=== PATIENT | male | born 1955 | race Caucasian/White ===

== ENCOUNTER 2020-01-02 12:08 | Emergency (ER) | payer MEDICARE, SELFPAY ==
--- NOTE | ~2020-01-02 | XR_ITS ---
EXAMINATION: XR tibia fibula RT 2V DATE: 01/02/2020 12:42 INDICATION: Right lower leg injury and pain. TECHNIQUE: 2 views of right tibia and fibula on 4 radiographs were obtained. COMPARISON: None. FINDINGS: Bone alignment is normal. There is an oblique fracture of fibular neck. The distal fracture fragment demonstrates one cortical width lateral displacement. There is mild osteoarthritis of media l compartment of the knee. There is mild midfoot osteoarthritis. There is heterotopic ossification di stal to medial and lateral malleoli from old injuries. There are enthesophytes at the posterior plant ar aspects of calcaneal tuberosity. IMPRESSION: 1. Oblique fracture of fibular neck. Reviewed, dictated and finalized at location A.
--- NOTE | 2020-01-02 12:20 | ED.LOWEXIN ---
HPI - Extremity Injury (Lower) General Chief Complaint: Extremity Injury, Lower Stated Complaint: FALL/R LEG INJURY Time Seen by Provider: 01/02/20 12:20 Source: patient and RN notes reviewed History of Present Illness HPI Narrative: Patient is a 64-year-old male who presents the urgent care with his spouse with complaints of a fall on December 20, resulting in a right anterior leg pain. Patient states that it did improve slightly but is still very tender to touch and hurts with ambulation. Patient states that he was going down a set of stairs and the left leg buckled, causing the right leg to go back and likely hit 1 of the steps. Patient denies of any shortness of breath or chest pain. Denies of any history of DVT. States that he does have intermittent lower extremity swelling, which is normal for him. Patient states that the swelling does improve with elevation but only for 1 day. Patient states that his PCP is aware of the intermittent swelling. No other acute complaints. No acute distress noted. Patient read the plan of care. Related Data Allergies Allergy/AdvReac Type Severity Reaction Status Date / Time No Known Allergies Allergy Verified 01/02/20 12:18 Review of Systems Review of Systems: Narrative: CONSTITUTIONAL: Denies fever, chills, or sweats. EYES: Denies visual changes, redness, or discharge. ENT: Denies rhinorrhea, congestion, sore throat, or otalgia. CARDIOVASCULAR: Denies chest pain, palpitations, or edema. RESPIRATORY: Denies cough or dyspnea. GASTROINTESTINAL: Denies abdominal pain, nausea, vomiting, or diarrhea. GENITOURINARY: Denies dysuria or hematuria. SKIN: Denies rash or itching. MUSCULOSKELETAL: Reports of anterior right leg pain and tenderness NEUROLOGIC: Denies headache, numbness, or weakness. All other systems reviewed are negative, except as documented in HPI. [facility] Past Medical History Medical History (Updated 01/02/20 @ 12:58 by REGLA Brunson) Acute pharyngitis Acute sinusitis Cholecystectomy planned Chronic depression Chronic kidney disease (CKD) stage G3a/A1, moderately decreased glomerular filtration rate (GFR) between 45-59 mL/min/1.73 square meter and albuminuria creatinine ratio less than 30 mg/g Diabetes Diabetic neuropathy Glaucoma Hypercholesterolemia Hypertension Insomnia Vitamin B12 deficiency anemia Vitamin D deficiency, unspecified Social History Social History Smoking status: Never smoker Alcohol intake: never Comments At the time of my signature, I reviewed and agree with the nursing past medical, surgical, social, and family history. There is no relevant family history pertinent to the patient complaint. Exam Narrative: Exam Narrative: GENERAL: This is a well-nourished, well-developed patient, in no apparent distress. HEAD: normocephalic, atraumatic. EYES: PERRL. Sclera clear/white. Vision is grossly intact. EARS: External ears normal NOSE: External nose normal with no obvious nasal discharge, nares without redness, no rhinorrhea. THROAT: Mucous membranes moist NECK: Neck supple SKIN: warm, intact with no suspicious lesions or rash, good texture and turgor. NEURO: awake, alert, and oriented to person, place and time. There were no obvious focal neurologic abnormalities. EXTREMITIES: Bilaterally 2+ pitting edema to lower extremities. Mild tenderness to tib-fib region of the right without any obvious deformity, ecchymosis, edema or erythema. Positive strong right pedal pulse with capillary refill less than 2 seconds. Course Vital Signs Vital signs: Vital Signs Temperature 96.0 F L 01/02/20 12:23 Pulse Rate 97 01/02/20 12:23 Respiratory Rate 18 01/02/20 12:23 Blood Pressure 117/66 01/02/20 12:23 Pulse Oximetry 97 01/02/20 12:23 Temperature 96.0 F L 01/02/20 12:23 Pulse Rate 97 01/02/20 12:23 Respiratory Rate 18 01/02/20 12:23 Blood Pressure 117/66 01/02/20 12:2
[2020-01-02 12:23] VITALS: BP 117/66; PULSE 97; RESP 18; TEMP 35.6; O2SAT 97
== END 2020-01-02 13:26 | disposition home or self-care (01) ==
PROVIDERS: Emergency Provider Nurse Practitioner Family; PCP Family Medicine
DX: S82.831A Other fracture of upper and lower end of right fibula, initial encounter for closed fracture (principal); W10.9XXA Fall (on) (from) unspecified stairs and steps, initial encounter; I12.9 Hypertensive chronic kidney disease with stage 1 through stage 4 chronic kidney disease, or unspecified chronic kidney disease; E11.22 Type 2 diabetes mellitus with diabetic chronic kidney disease; N18.3 Chronic kidney disease, stage 3 (moderate); E11.40 Type 2 diabetes mellitus with diabetic neuropathy, unspecified; E11.39 Type 2 diabetes mellitus with other diabetic ophthalmic complication; H42 Glaucoma in diseases classified elsewhere; E78.00 Pure hypercholesterolemia, unspecified; Z79.84 Long term (current) use of oral hypoglycemic drugs
CPT/HCPCS: 73590; 99213; G0463

== ENCOUNTER → 2020-12-24 14:54 | Outpatient (CLI) | payer MEDICARE, SELFPAY ==
--- NOTE | ~2020-12-24 | CT_ITS ---
EXAMINATION: CT abdomen pelvis wo/w con EXAM DATE: 12/24/2020 15:45 INDICATION: Microscopic hematuria. Cholecystectomy, hypertension. TECHNIQUE: Spiral CT of the abdomen and pelvis was performed without contrast. The patient was then injected with small bolus intravenous Omnipaque 350, followed by delay of approximately 10 minutes to allow collecting system to opacify. A post contrast scan abdomen and pelvis was performed during inj ection of remaining contrast. A total of 130 cc intravenous contrast was administered. The dose-carmen th product (DLP) for this examination was 2469.17 mGy-cm. The exposure was tailored according to pat ient size (auto mA exposure control), and iterative reconstruction (ASIR) was used as additional dose reduction technique. There is no prior study for comparison. FINDINGS: There is no hydronephrosis or nephrolithiasis. There is an exophytic cyst off the midpole right kidney measuring 5 cm. The kidneys enhance symmetrically. There are no suspicious renal lesio ns. The calyces and opacified portions of ureters are unremarkable, without filling defects or focal suspicious strictures (most of the left ureter was not opacified at time of imaging, but does appear collapsed without evidence of focal thickening). The bladder is unremarkable. The prostate is unre markable. The liver, spleen, adrenal glands are unremarkable. Several punctate pancreas calcifications, chronic pancreatitis. There are cholecystectomy clips. There is no retroperitoneal or pelvic lymphadenopath y. There is mild scattered arteriosclerotic disease. Possible identification of an unremarkable appendix. No pericecal inflammation. The stomach and smal l bowel are unremarkable. There is expected amount of colonic stool. No free intraperitoneal gas. The heart is normal in size. There are no pericardial or pleural effusions. The lung bases are un remarkable. There is an 8 mm sclerotic focus in the left iliac bone, probably bone island. Bilatera l femoral head serpiginous sclerotic regions, chronic avascular necrosis without subchondral collapse . IMPRESSION: 1. No suspicious genitourinary findings. 2. Punctate calcifications, chronic pancreatitis. 3. Bilateral hip stage II avascular necrosis. Reviewed, dictated and finalized at location A.
--- NOTE | ~2020-12-24 | XR_ITS ---
EXAMINATION: XR abdomen/kub 1V EXAM DATE: 12/24/2020 15:45 INDICATION: Microscopic hematuria. TECHNIQUE: Frontal projection of the upper abdomen, frontal projection lower abdomen/pelvis for inter pretation. There is no prior study for comparison. FINDINGS: There is moderate amount of colonic stool and gas. No small bowel dilation, nonobstructiv e bowel gas pattern. There are no suspicious calcifications identified. There is no organomegaly suspected. There is mild lumbar levoscoliosis and moderate spondylosis. Bilateral hip avascular necr osis without subchondral collapse. Left iliac subcentimeter sclerotic focus probably bone island. T here is no free intraperitoneal air. The lung bases are clear. IMPRESSION: Chronic osseous findings. Reviewed, dictated and finalized at location A. IMPRESSION: Chronic osseous findings.
[2020-12-24 15:18] LABS: Estimated Glomerular Filt Rate 36
== END ==
PROVIDERS: PCP Family Medicine; Visit Provider Nurse Practitioner Adult Health
DX: R31.29 Other microscopic hematuria (principal); K86.1 Other chronic pancreatitis; M87.850 Other osteonecrosis, pelvis
CPT/HCPCS: 74018; 74178; Q9967

== ENCOUNTER → 2021-06-03 10:51 | Outpatient (CLI) | payer MEDICARE, SELFPAY ==
--- NOTE | ~2021-06-03 | XR_ITS ---
EXAMINATION: XR elbow RT min 3V DATE: 06/03/2021 11:01 INDICATION: Right elbow pain TECHNIQUE: Anteroposterior, two oblique and lateral views of the right elbow were obtained. COMPARISON: None. FINDINGS: Alignment is normal. No fracture or joint effusion. There is mild osteoarthritis. There is also mild posterior soft tissue swelling. IMPRESSION: 1. Mild posterior soft tissue swelling without acute osseous abnormality. Reviewed, dictated and finalized at location A. TH AND SAFETY REPRESENTATIVE
== END ==
PROVIDERS: PCP Family Medicine; Visit Provider Nurse Practitioner Family
DX: M25.521 Pain in right elbow (principal); R22.31 Localized swelling, mass and lump, right upper limb
CPT/HCPCS: 73080

== ENCOUNTER 2021-09-10 15:42 | Emergency (ER) | payer MEDICARE, SELFPAY ==
[2021-09-10 15:52] VITALS: BP 165/76; PULSE 65; RESP 16; TEMP 37.1; O2SAT 99
--- NOTE | 2021-09-10 16:36 | ED.URI ---
HPI - URI/Sore Throat General Chief Complaint: Upper Respiratory Infection Stated Complaint: sore throat Time Seen by Provider: 09/10/21 16:24 Source: patient and RN notes reviewed Mode of arrival: ambulatory Limitations: no limitations History of Present Illness HPI Narrative: Patient presents today with a 2-day history of sore throat. He denies any additional symptoms. Denies history of GERD. Currently rates his pain 1/10, which increases to 5/10 with swallowing. He has been using Chloraseptic spray without relief. MD elicited complaint: sore throat Related Data Allergies Allergy/AdvReac Type Severity Reaction Status Date / Time No Known Allergies Allergy Verified 09/10/21 15:49 Review of Systems Review of Systems: CONSTITUTIONAL: Denies body aches, fever, chills, or sweats. EYES: Denies visual changes, redness, or discharge. ENT: Denies rhinorrhea, congestion, or otalgia.+ Sore throat CARDIOVASCULAR: Denies chest pain, palpitations, or edema. RESPIRATORY: Denies cough or dyspnea. GASTROINTESTINAL: Denies abdominal pain, nausea, vomiting, or diarrhea. GENITOURINARY: Denies dysuria or hematuria. SKIN: Denies rash, itching, or wounds. MUSCULOSKELETAL: Denies back pain, joint pain, or myalgia. NEUROLOGIC: Denies headache, numbness, tingling, or weakness. PSYCH: Denies depression or anxiety. [facility] Past Medical History Medical History Actinic keratosis Acute pharyngitis Acute sinusitis Cholecystectomy planned Chronic depression Chronic kidney disease (CKD) stage G3a/A1, moderately decreased glomerular filtration rate (GFR) between 45-59 mL/min/1.73 square meter and albuminuria creatinine ratio less than 30 mg/g Diabetes Diabetic neuropathy Hypercholesterolemia Hypertension Insomnia Microscopic hematuria Open-angle glaucoma of both eyes followed by minute clerk for basic traffic with last appointment 02/09/2021 Right elbow pain Screening for diabetic retinopathy dilated eye exam on 02/09/2021 reveals no retinopathy . Recheck in 1 year Vitamin B12 deficiency anemia Vitamin D deficiency, unspecified Worsening renal function Family History Family History Father Family history of lung cancer, Onset Age: 80 Mother Family history of congestive heart failure, Onset Age: 90 Social History Social History Smoking status: Never smoker Alcohol intake: never Substance use: never Substance use type: does not use Comments At time of signature, I have reviewed and agree with nursing past medical, surgical, social and family history unless otherwise noted. Please see nursing chart for further information. There is no relevant family history pertinent to the presenting complaint Exam Narrative: GENERAL: Well-appearing, well-nourished, and in no acute distress. HEAD: Normocephalic, atraumatic. EYES: EOMI. No redness or drainage. Conjunctivae normal. ENT: Mucous membranes pink and moist. Nares clear. No rhinorrhea. TMs normal bilaterally. Throat erythematous and mildly edematous without exudate. Uvula midline. NECK: Normal AROM. Supple. Bilateral anterior cervical chain lymphadenopathy. CHEST: No respiratory distress. Clear to auscultation. HEART: Regular rate and rhythm. No murmur appreciated. Normal peripheral pulses. EXTREMITIES: Normal range of motion. No edema. SKIN: Warm, dry, no rash. Capillary refill normal. Normal skin turgor. NEURO: No focal deficits. Alert and oriented x3. Gait steady. PSYCH: Normal affect. No signs of depression or anxiety. Course Course Level of Care: Express Care Visit Vital Signs Vital signs: Vital Signs Temperature 98.7 F 09/10/21 15:52 Pulse Rate 65 09/10/21 15:52 Respiratory Rate 16 09/10/21 15:52 Blood Pressure 165/76 H 09/10/21 15:52 Pulse Oximetry 99
== END 2021-09-10 16:58 | disposition home or self-care (01) ==
PROVIDERS: Emergency Provider Nurse Practitioner; PCP Family Medicine
DX: J02.0 Streptococcal pharyngitis (principal); E78.00 Pure hypercholesterolemia, unspecified; I12.9 Hypertensive chronic kidney disease with stage 1 through stage 4 chronic kidney disease, or unspecified chronic kidney disease; E11.22 Type 2 diabetes mellitus with diabetic chronic kidney disease; N18.30 Chronic kidney disease, stage 3 unspecified; N18.31 Chronic kidney disease, stage 3a; E11.42 Type 2 diabetes mellitus with diabetic polyneuropathy; Z79.84 Long term (current) use of oral hypoglycemic drugs; F32.A Depression, unspecified
CPT/HCPCS: 87880; 99213; G0463

== ENCOUNTER 2021-11-24 07:20 | Outpatient (CLI) | payer MEDICARE, SELFPAY ==
--- NOTE | ~2021-11-24 | US_ITS ---
EXAMINATION: US art doppler w niki GREENE DATE: 11/24/2021 09:10 INDICATION: Peripheral vascular disease with claudication and risk factors of diabetes, hypercholeste rolemia and hypertension. TECHNIQUE: Segmental pressures and plethysmographic and Doppler waveforms of the brachial and lower e xtremity arteries were obtained. COMPARISON: None. FINDINGS: Right brachial artery pressures of 175 mm Hg. Patient refused left brachial artery pressure measureme nt due to left shoulder pain. The right and left high-thigh pressure indices as well as ankle brachia l indices were unable to be obtained due to inability to occlude the vessels throughout either lower limb also precluding assessment for segmental pressure gradients. The right great toe-brachial index (TBI) is 1.12 (normal >= 0.6-0.8). Arterial waveforms are triphasi c at the left common femoral and superficial femoral arteries and biphasic in the more distal arterie s with brisk systolic upstrokes throughout. The left TBI is 1.10. Arterial waveforms are triphasic at the left common femoral and popliteal arter ies and biphasic in the remaining arteries in the left lower limb with brisk systolic upstrokes throu ghout. IMPRESSION: 1. Normal TBIs bilaterally. No significant arterial occlusive disease. Reviewed, dictated and finalized at location B.
== END 2021-11-24 07:21 | disposition home or self-care (01) ==
PROVIDERS: PCP Family Medicine; Visit Provider Nurse Practitioner Family
DX: R23.0 Cyanosis (principal); Z78.9 Other specified health status; I87.2 Venous insufficiency (chronic) (peripheral); M79.89 Other specified soft tissue disorders
CPT/HCPCS: 93923

== ENCOUNTER → 2022-01-31 14:39 | Outpatient (CLI) | payer MEDICARE, SELFPAY ==
--- NOTE | ~2022-01-31 | XR_ITS ---
XR lumbar spine min 4V 01/31/2022 15:07 Indication: Low back pain Procedure: 4 views lumbar spine Comparison: No prior studies for comparison. Findings: There is levoscoliosis. There is disc narrowing at all lumbar levels. There is moderate mul tilevel facet hypertrophy. No acute fracture, subluxation or dislocation. No evidence for spondylolis thesis. Mild wedge deformity of T11 which appears chronic. Impression: 1: Moderate-severe lumbar spondylosis. Reviewed, dictated and finalized at location A. Impression: 1: Moderate-severe lumbar spondylosis.
== END ==
PROVIDERS: PCP Family Medicine; Visit Provider Family Medicine
DX: G89.29 Other chronic pain (principal); M54.41 Lumbago with sciatica, right side; M54.42 Lumbago with sciatica, left side; M47.816 Spondylosis without myelopathy or radiculopathy, lumbar region
CPT/HCPCS: 72110

== ENCOUNTER → 2022-02-25 12:22 | Outpatient (CLI) | payer MEDICARE, SELFPAY ==
--- NOTE | ~2022-02-25 | US_ITS ---
US renal BI DATE: 02/25/2022 12:46 INDICATION: Chronic kidney disease TECHNIQUE: Real-time imaging of kidneys and urinary bladder COMPARISON: 12/24/2020 CT abdomen pelvis without and with IV contrast material FINDINGS: Right kidney measures 11.2 cm length, left kidney 10.7 cm length. There is an exophytic approximately 4.5 x 4.9 cm right lateral lower pole renal cyst. No renal mass lesion or hydronephrosis either kidney is noted otherwise. The urinary bladder is unrem arkable IMPRESSION: No evidence of obstructive uropathy 4.5 x 4.9 cm exophytic right renal cyst Reviewed, dictated and finalized at Location A. Reviewed, dictated and finalized at location B.
== END ==
PROVIDERS: PCP Family Medicine; Visit Provider Internal Medicine Nephrology
DX: N18.32 Chronic kidney disease, stage 3b (principal); I12.9 Hypertensive chronic kidney disease with stage 1 through stage 4 chronic kidney disease, or unspecified chronic kidney disease; R31.29 Other microscopic hematuria; N28.1 Cyst of kidney, acquired
CPT/HCPCS: 76775

== ENCOUNTER 2022-03-17 00:30 | Day surgery (SDC) | payer MEDICARE, SELFPAY ==
[2022-03-01 13:56] VITALS: BMI 38.2
--- NOTE | 2022-03-16 14:52 | PM.HPGS ---
History of Present Illness History of Present Illness Consent: Risks, benefits, and alternatives have been discussed and questions answered. Patient agrees to proceed with procedure. Chief complaint: anemia Narrative: Abhinav Moore is a 66 year old male Referred for EGD and colonoscopy. he has been found to be anemic. He denies seeing blood in his stools. He denies nausea vomiting weight loss or dysphagia. He rarely gets heartburn. There has been no significant change in bowel habits [facility] Review of Systems Review of Systems: All systems reviewed & are unremarkable except as noted in HPI and below PMFSH Past Medical History Medical History Abscess of skin or subcutaneous tissue (~01/29/22) Left buttocks midline Actinic keratosis Acute pharyngitis Acute sinusitis Anemia (11/03/21) hemoglobin 11.4 on 11/03/2021. hemoglobin 12.0 with iron 43, 60% saturation and ferritin 32 but 12/13/2021. Cholecystectomy planned Chronic depression Chronic kidney disease (CKD) stage G3a/A1, moderately decreased glomerular filtration rate (GFR) between 45-59 mL/min/1.73 square meter and albuminuria creatinine ratio less than 30 mg/g Chronic kidney disease (CKD) stage G3b/A1, moderately decreased glomerular filtration rate (GFR) between 30-44 mL/min/1.73 square meter and albuminuria creatinine ratio less than 30 mg/g BUN 20 day with creatinine 1.93 with GFR 35, decreased from 39 on 12/13/2021. Cyanosis bilateral feet . Arterial Doppler study of the lower extremities 11/24/2021 was normal. Diabetes Diabetic neuropathy Edema of both lower legs due to peripheral venous insufficiency Hypercholesterolemia Hypertension Insomnia Iron deficiency anemia, unspecified (12/13/21) are low at 43 with 16% saturation and ferritin 32 with hemoglobin 12.0 on 12/13/2021. Microscopic hematuria Morbid obesity with BMI of 40.0-44.9, adult Nonpalpable pulse bilateral feet . Arterial Doppler 11/24/2021 of the lower extremities was normal. Open-angle glaucoma of both eyes followed by foundation relations manager with last appointment 02/09/2021 Peripheral vascular disease of lower extremity Right elbow pain Screening for diabetic retinopathy dilated eye exam on 02/09/2021 reveals no retinopathy . Recheck in 1 year Vitamin B12 deficiency anemia Vitamin D deficiency, unspecified Worsening renal function Family History Family History Father Family history of lung cancer, Onset Age: 80 Mother Family history of congestive heart failure, Onset Age: 90 Social History Social History Smoking status: Never smoker Alcohol intake: never Substance use: never Substance use type: does not use Living arrangements: with family Spiritual care concerns: No Meds Home Medications and Allergies Home Medications Medication Instructions Recorded Confirmed Type latanoprost 0.005 % eye drops 1 drp ophthalmic (eye) DAILY #7.5 11/21/19 03/01/22 Rx mL timolol 0.25 % eye drops 1 drp ophthalmic (eye) Q12H #15 mL 11/21/19 03/01/22 Rx amitriptyline 10 mg tablet 20 mg PO . q.h.s. #180 tabs 11/11/21 03/01/22 Rx duloxetine 60 mg capsule,delayed 60 mg PO BID #180 caps 11/11/21 03/01/22 Rx release lisinopril 40 mg tablet 40 mg PO DAILY #90 tabs 11/11/21 03/01/22 Rx metformin 1,000 mg tablet 1,000 mg PO BID #180 tabs 11/11/21 03/01/22 Rx atorvastatin 40 mg tablet 20 mg PO QHS 03/01/22 03/01/22 History dapagliflozin 10 mg tablet 5 mg PO DAILY 03/01/22 03/01/22 History ([facility]) Allergies Allergy/AdvReac Type Severity Reaction Status Date / Time No Known Allergies Allergy Verified 03/01/22 13:50 Exam Const: General: alert Orientation/consciousness: patient oriented x3 Resp: Auscultation: clear to auscultation bilaterally Cardio: Rhythm: regular rhythm GI: GI Palp: Yes
[2022-03-17 11:15] VITALS: BP 135/78; PULSE 79; RESP 22; TEMP 36.2; O2SAT 100
[2022-03-17 11:22] LABS: Glucose Point of Care 149 mg/dl (65-105)
[2022-03-17] MEDS: LACTATED RINGERS 1,000 ML 150 ML IV CONT (11:26)
--- NOTE | 2022-03-17 11:32 | WPDANESEPPF ---
Anes - Initial Pre Proc Eval Procedure: Operation Date: 03/17/22 12:30 Proposed Procedures p Esophagogastroduodenoscopy & Colonoscopy - Blu Montague MD Date/Time: 03/17/22 11:32 Surgeon: Blu Montague MD Pre Op Diagnosis: anemia Patient Data Age: 66 Gender: M Height: 1.85 m Weight: 132.6 kg Last Vital Signs Temp 97.2 F L 03/17/22 11:15 Pulse 79 03/17/22 11:15 Resp 22 H 03/17/22 11:15 BP 135/78 03/17/22 11:15 Pulse Ox 100 03/17/22 11:15 O2 Del Method Room Air 03/17/22 11:15 Allergies Allergy/AdvReac Type Severity Reaction Status Date / Time No Known Allergies Allergy Verified 03/01/22 13:50 Home Medications Medication Instructions Recorded Confirmed Type latanoprost 0.005 % eye drops 1 drp ophthalmic (eye) DAILY #7.5 11/21/19 03/01/22 Rx mL timolol 0.25 % eye drops 1 drp ophthalmic (eye) Q12H #15 mL 11/21/19 03/01/22 Rx amitriptyline 10 mg tablet 20 mg PO . q.h.s. #180 tabs 11/11/21 03/01/22 Rx duloxetine 60 mg capsule,delayed 60 mg PO BID #180 caps 11/11/21 03/01/22 Rx release lisinopril 40 mg tablet 40 mg PO DAILY #90 tabs 11/11/21 03/01/22 Rx metformin 1,000 mg tablet 1,000 mg PO BID #180 tabs 11/11/21 03/01/22 Rx atorvastatin 40 mg tablet 20 mg PO QHS 03/01/22 03/01/22 History dapagliflozin 10 mg tablet 5 mg PO DAILY 03/01/22 03/01/22 History ([facility]) Laboratory Tests 03/17/22 11:20 POC Capillary Glucose 149 mg/dl H mg/dl (65-105) Patient hx anesthesia problems: none Family hx anesthesia problems: none Results Review: All pre-operative results and documents have been reviewed as part of the pre-operative evaluation. [facility] Past Medical History Medical History (Updated 01/31/22 @ 19:32 by Andre Ontiveros MD) Abscess of skin or subcutaneous tissue (~01/29/22) Left buttocks midline Actinic keratosis Acute pharyngitis Acute sinusitis Anemia (11/03/21) hemoglobin 11.4 on 11/03/2021. hemoglobin 12.0 with iron 43, 60% saturation and ferritin 32 but 12/13/2021. Cholecystectomy planned Chronic depression Chronic kidney disease (CKD) stage G3a/A1, moderately decreased glomerular filtration rate (GFR) between 45-59 mL/min/1.73 square meter and albuminuria creatinine ratio less than 30 mg/g Chronic kidney disease (CKD) stage G3b/A1, moderately decreased glomerular filtration rate (GFR) between 30-44 mL/min/1.73 square meter and albuminuria creatinine ratio less than 30 mg/g BUN 20 day with creatinine 1.93 with GFR 35, decreased from 39 on 12/13/2021. Cyanosis bilateral feet . Arterial Doppler study of the lower extremities 11/24/2021 was normal. Diabetes Diabetic neuropathy Edema of both lower legs due to peripheral venous insufficiency Hypercholesterolemia Hypertension Insomnia Iron deficiency anemia, unspecified (12/13/21) are low at 43 with 16% saturation and ferritin 32 with hemoglobin 12.0 on 12/13/2021. Microscopic hematuria Morbid obesity with BMI of 40.0-44.9, adult Nonpalpable pulse bilateral feet . Arterial Doppler 11/24/2021 of the lower extremities was normal. Open-angle glaucoma of both eyes followed by brusher operator with last appointment 02/09/2021 Peripheral vascular disease of lower extremity Right elbow pain Screening for diabetic retinopathy dilated eye exam on 02/09/2021 reveals no retinopathy . Recheck in 1 year Vitamin B12 deficiency anemia Vitamin D deficiency, unspecified Worsening renal function Family History Family History Father Family history of lung cancer, Onset Age: 80 Mother Family history of congestive heart failure, Onset Age: 90 Social History Social History Smoking status: Never smoker Alcohol intake: never Substance use: never Substance use type: does not use Living arrangements: with family Spiritual care concerns: No Anes - Eval Dorothea
[2022-03-17] MEDS: SIMETHICONE ORAL SUSPENSION 20 MG/0.3 ML 30 ML BOTTLE 0.6 ML IRRIGATION (12:49)
--- NOTE | 2022-03-17 12:56 | SUR.OPER ---
EGD START: 1233; END: 1237. COLONOSCOPY START: 1246; END: 1255.
[2022-03-17 13:01] VITALS: BP 98/57; PULSE 68; RESP 22; O2SAT 97
[2022-03-17 13:11] VITALS: BP 94/73; PULSE 67; RESP 20; O2SAT 98
[2022-03-17 13:21] VITALS: BP 146/81; PULSE 62; RESP 21; O2SAT 98
== END 2022-03-17 13:46 | disposition home or self-care (01) ==
PROVIDERS: PCP Family Medicine; Visit Provider Internal Medicine Gastroenterology
PROC: 0DJ08ZZ Inspection of Upper Intestinal Tract, Via Natural or Artificial Opening Endoscopic (ICD-10-PCS; CPT 43235; principal; 2022-03-17 12:30)
DX: D50.9 Iron deficiency anemia, unspecified (principal); K26.9 Duodenal ulcer, unspecified as acute or chronic, without hemorrhage or perforation; K57.30 Diverticulosis of large intestine without perforation or abscess without bleeding; K21.9 Gastro-esophageal reflux disease without esophagitis; R12 Heartburn; K29.70 Gastritis, unspecified, without bleeding; Z79.84 Long term (current) use of oral hypoglycemic drugs; L57.0 Actinic keratosis; F32.A Depression, unspecified; I12.9 Hypertensive chronic kidney disease with stage 1 through stage 4 chronic kidney disease, or unspecified chronic kidney disease; N18.30 Chronic kidney disease, stage 3 unspecified; E11.22 Type 2 diabetes mellitus with diabetic chronic kidney disease; E11.40 Type 2 diabetes mellitus with diabetic neuropathy, unspecified; R60.0 Localized edema; E78.00 Pure hypercholesterolemia, unspecified; E55.9 Vitamin D deficiency, unspecified; E53.8 Deficiency of other specified B group vitamins; G62.9 Polyneuropathy, unspecified; H40.9 Unspecified glaucoma; E66.9 Obesity, unspecified; Z68.38 Body mass index [BMI] 38.0-38.9, adult
CPT/HCPCS: 45378; 43239; 82948; 87081; 88305; 88342; J2704; J7120

== ENCOUNTER 2022-05-05 00:24 | Day surgery (SDC) | payer MEDICARE, SELFPAY ==
[2022-04-26 14:17] VITALS: BMI 41.4
--- NOTE | 2022-05-04 14:39 | PM.HPGS ---
History of Present Illness History of Present Illness Consent: Risks, benefits, and alternatives have been discussed and questions answered. Patient agrees to proceed with procedure. Chief complaint: gastritis & duodenal ulcers Narrative: Abhinav Moore is a 67 year old male Who was found to have multiple duodenal ulcers when he was being investigated for anemia 2 months ago. He has been taking pantoprazole 40 mg per day. Review of Systems Review of Systems: All systems reviewed & are unremarkable except as noted in HPI and below PMFSH Past Medical History Medical History Abscess of skin or subcutaneous tissue (~01/29/22) Left buttocks midline Actinic keratosis Acute pharyngitis Acute sinusitis Anemia (11/03/21) hemoglobin 11.4 on 11/03/2021. hemoglobin 12.0 with iron 43, 60% saturation and ferritin 32 but 12/13/2021. BMI 38.0-38.9,adult Body mass index (BMI) 40.0-44.9, adult (03/04/19) Cholecystectomy planned Chronic depression Chronic kidney disease (CKD) stage G3a/A1, moderately decreased glomerular filtration rate (GFR) between 45-59 mL/min/1.73 square meter and albuminuria creatinine ratio less than 30 mg/g Chronic kidney disease (CKD) stage G3b/A1, moderately decreased glomerular filtration rate (GFR) between 30-44 mL/min/1.73 square meter and albuminuria creatinine ratio less than 30 mg/g BUN 20 day with creatinine 1.93 with GFR 35, decreased from 39 on 12/13/2021. BUN 33, creatinine 1.88 with GFR 38 on 04/05/2022. COVID-19 (~12/2021) fully vaccinated and moderate symptoms Cyanosis bilateral feet . Arterial Doppler study of the lower extremities 11/24/2021 was normal. Diabetes Diabetic neuropathy Duodenal ulcer disease (03/17/22) EGD with duodenal ulcers 03/17/2022. Edema of both lower legs due to peripheral venous insufficiency Encounter for hepatitis C screening test for low risk patient Gastritis (03/17/22) EGD on 03/17/2022 with gastritis and ulcerations GERD with esophagitis (03/17/22) esophagitis on EGD 03/17/2022 Hypercholesterolemia Hypertension Insomnia Iron deficiency anemia, unspecified (12/13/21) are low at 43 with 16% saturation and ferritin 32 with hemoglobin 12.0 on 12/13/2021. iron 59 with 22% saturation and ferritin 34 on 04/05/2022. Microscopic hematuria Morbid obesity with BMI of 40.0-44.9, adult Nonpalpable pulse bilateral feet . Arterial Doppler 11/24/2021 of the lower extremities was normal. Obesity (BMI 30-39.9) Open-angle glaucoma of both eyes followed by manufacturing engineering intern with last appointment 02/09/2021 Peripheral vascular disease of lower extremity Right elbow pain Screening for diabetic retinopathy dilated eye exam on 02/09/2021 reveals no retinopathy . Recheck in 1 year Vitamin B12 deficiency anemia Vitamin D deficiency, unspecified Worsening renal function Family History Family History Father Family history of lung cancer, Onset Age: 80 Mother Family history of congestive heart failure, Onset Age: 90 Social History Social History Smoking status: Never smoker Alcohol intake: never Substance use: never Substance use type: does not use Current Housing: Decline to Answer Concerned About Future Housing: Decline to Answer Difficulty Paying Gas/Electric Bills: Decline to Answer Difficulty Paying for Meds: Decline to Answer Currently Unemployed: Decline to Answer Education: Decline to Answer Difficulty w/ Childcare or Family Care: Decline to Answer Living arrangements: with family Spiritual care concerns: No Meds Home Medications and Allergies Home Medications Medication Instructions Recorded Confirmed Type timolol 0.25 % eye drops 1 drp ophthalmic (eye) Q12H #15 mL 11/21/19 04/26/22 Rx duloxetine 60 mg capsule,delayed 60 mg PO BID #180 caps 11/11/21 04/26/22 R
[2022-05-05 09:29] VITALS: BP 166/84; PULSE 70; RESP 22; TEMP 36.6; O2SAT 99
[2022-05-05] MEDS: LACTATED RINGERS 1,000 ML 150 ML IV CONT (09:37)
[2022-05-05 09:44] LABS: Glucose Point of Care 129 mg/dl (65-105)
--- NOTE | 2022-05-05 10:30 | WPDANESEPPF ---
Anes - Initial Pre Proc Eval Procedure: Operation Date: 05/05/22 10:45 Proposed Procedures p Esophagogastroduodenoscopy EGD - Blu Montague MD Date/Time: 05/05/22 10:30 Surgeon: Blu Montague MD Pre Op Diagnosis: gastritis & duodenal ulcers Patient Data Age: 67 Gender: M Height: 1.83 m Weight: 138.8 kg Last Vital Signs Temp 97.8 F 05/05/22 09:29 Pulse 70 05/05/22 09:29 Resp 22 H 05/05/22 09:29 BP 166/84 H 05/05/22 09:29 Pulse Ox 99 05/05/22 09:29 O2 Del Method Room Air 05/05/22 09:29 Allergies Allergy/AdvReac Type Severity Reaction Status Date / Time No Known Allergies Allergy Verified 05/05/22 09:26 Home Medications Medication Instructions Recorded Confirmed Type timolol 0.25 % eye drops 1 drp ophthalmic (eye) Q12H #15 mL 11/21/19 04/26/22 Rx duloxetine 60 mg capsule,delayed 60 mg PO BID #180 caps 11/11/21 04/26/22 Rx release lisinopril 40 mg tablet 40 mg PO DAILY #90 tabs 11/11/21 04/26/22 Rx metformin 1,000 mg tablet 1,000 mg PO BID #180 tabs 11/11/21 04/26/22 Rx amitriptyline 10 mg tablet 20 mg PO HS 04/26/22 04/26/22 History atorvastatin 20 mg tablet 20 mg PO HS 04/26/22 04/26/22 History cholecalciferol (vitamin D3) 50 50 mcg PO DAILY 04/26/22 04/26/22 History mcg (2,000 unit) tablet dapagliflozin 10 mg tablet 5 mg PO 3XW 04/26/22 04/26/22 History (Farxiga) ferrous sulfate 324 mg (65 mg 324 mg PO DAILY 04/26/22 04/26/22 History iron) tablet,delayed release latanoprost 0.005 % eye drops 1 drp ophthalmic (eye) HS 04/26/22 04/26/22 History mecobalamin (vitamin B12) 1,000 2,000 mcg PO DAILY 04/26/22 04/26/22 History mcg chewable tablet pantoprazole 40 mg tablet,delayed 40 mg PO QAM #30 tabs 05/03/22 05/05/22 Rx release Laboratory Tests 05/05/22 09:41 POC Capillary Glucose 129 mg/dl H mg/dl (65-105) Patient hx anesthesia problems: none Family hx anesthesia problems: none Results Review: All pre-operative results and documents have been reviewed as part of the pre-operative evaluation. [facility] Past Medical History Medical History (Updated 04/13/22 @ 10:54 by Andre Ontiveros MD) Abscess of skin or subcutaneous tissue (~01/29/22) Left buttocks midline Actinic keratosis Acute pharyngitis Acute sinusitis Anemia (11/03/21) hemoglobin 11.4 on 11/03/2021. hemoglobin 12.0 with iron 43, 60% saturation and ferritin 32 but 12/13/2021. BMI 38.0-38.9,adult Body mass index (BMI) 40.0-44.9, adult (03/04/19) Cholecystectomy planned Chronic depression Chronic kidney disease (CKD) stage G3a/A1, moderately decreased glomerular filtration rate (GFR) between 45-59 mL/min/1.73 square meter and albuminuria creatinine ratio less than 30 mg/g Chronic kidney disease (CKD) stage G3b/A1, moderately decreased glomerular filtration rate (GFR) between 30-44 mL/min/1.73 square meter and albuminuria creatinine ratio less than 30 mg/g BUN 20 day with creatinine 1.93 with GFR 35, decreased from 39 on 12/13/2021. BUN 33, creatinine 1.88 with GFR 38 on 04/05/2022. COVID-19 (~12/2021) fully vaccinated and moderate symptoms Cyanosis bilateral feet . Arterial Doppler study of the lower extremities 11/24/2021 was normal. Diabetes Diabetic neuropathy Duodenal ulcer disease (03/17/22) EGD with duodenal ulcers 03/17/2022. Edema of both lower legs due to peripheral venous insufficiency Encounter for hepatitis C screening test for low risk patient Gastritis (03/17/22) EGD on 03/17/2022 with gastritis and ulcerations GERD with esophagitis (03/17/22) esophagitis on EGD 03/17/2022 Hypercholesterolemia Hypertension Insomnia Iron deficiency anemia, unspecified (12/13/21) are low at 43 with 16% saturation and ferritin 32 with hemoglobin 12.0 on 12/13/2021. iron 59 with 22% saturation and ferritin 34 on 04/05/2022. Microscopic hematuria Morbid obesity with BMI of 40.0-44.9, adult Nonpalpable pulse bilateral feet . Arterial Doppler 11/24/2021 of the lower extremiti
[2022-05-05] MEDS: BENZOCAINE (*SP) 60 ML SPRAY CAN (HURRICAINE) 1 SPRAY MUCOUS MEM (10:41)
[2022-05-05 10:53] VITALS: BP 138/69; PULSE 71; RESP 19; O2SAT 96
[2022-05-05 11:03] VITALS: BP 140/74; PULSE 64; RESP 21; O2SAT 98
[2022-05-05 11:13] VITALS: BP 153/97; PULSE 67; RESP 18; O2SAT 100
== END 2022-05-05 11:15 | disposition home or self-care (01) ==
PROVIDERS: PCP Family Medicine; Visit Provider Internal Medicine Gastroenterology
PROC: 0DJ08ZZ Inspection of Upper Intestinal Tract, Via Natural or Artificial Opening Endoscopic (ICD-10-PCS; CPT 43235; principal; 2022-05-05 10:45)
DX: Z09 Encounter for follow-up examination after completed treatment for conditions other than malignant neoplasm (principal); K21.9 Gastro-esophageal reflux disease without esophagitis; K31.84 Gastroparesis; Z87.11 Personal history of peptic ulcer disease; E11.40 Type 2 diabetes mellitus with diabetic neuropathy, unspecified; F32.A Depression, unspecified; I12.9 Hypertensive chronic kidney disease with stage 1 through stage 4 chronic kidney disease, or unspecified chronic kidney disease; N18.32 Chronic kidney disease, stage 3b; E78.00 Pure hypercholesterolemia, unspecified; D50.9 Iron deficiency anemia, unspecified; H40.10X0 Unspecified open-angle glaucoma, stage unspecified; E11.51 Type 2 diabetes mellitus with diabetic peripheral angiopathy without gangrene; E55.9 Vitamin D deficiency, unspecified; D51.3 Other dietary vitamin B12 deficiency anemia; E66.01 Morbid (severe) obesity due to excess calories; Z68.41 Body mass index [BMI] 40.0-44.9, adult; Z79.84 Long term (current) use of oral hypoglycemic drugs
CPT/HCPCS: 43235; 82948; J2704; J7120

== ENCOUNTER 2022-07-08 07:17 | Outpatient (CLI) | payer MEDICARE, SELFPAY ==
--- NOTE | ~2022-07-08 | MR_ITS ---
EXAMINATION: MR lumbar spine wo con DATE: 07/08/2022 07:55 INDICATION: Chronic low back pain. TECHNIQUE: Magnetic resonance imaging (MRI) of the lumbar spine was performed without intravenous con trast. Sequences included sagittal T2-weighted FSE, sagittal T2-weighted FS FSE, sagittal T1-weighted FSE, and axial T2-weighted FSE. COMPARISON: Lumbar spine radiographs 01/31/2022 FINDINGS: There is 13 degrees levoscoliosis of lumbar spine. There is a compression fracture of T12 w ith 1/5 loss of height and edema-like marrow signal intensity. There is mild chronic anterior wedging of T11 vertebral body. There is 3 mm retrolisthesis of L1 on L2 and L2 on L3. There is mildly decrea sed disc height at T11-T12 and moderately decreased disc height at L1-L2, L2-L3, and L3-L4. The conus medullaris is at T12. The following disc levels are specifically discussed: T11-T12: There is a central extrusion. There is mild bilateral facet joint osteoarthritis. There is m ild left neural foraminal stenosis. There is mild central canal stenosis. T12-L1: The disc is bulging. There is mild bilateral facet joint osteoarthritis. There is mild bilate ral neural foraminal stenosis. There is mild central canal stenosis. L1-L2: The disc is bulging and has an annular fissure. There is severe bilateral facet joint osteoart hritis. There is moderate bilateral neural foraminal stenosis. There is moderate central canal stenos is. L2-L3: The disc is bulging and has an annular fissure. There is severe bilateral facet joint osteoart hritis. There is moderate right and mild left neural foraminal stenosis. There is mild central canal stenosis with posterior decompression. L3-L4: The disc is bulging and has an annular fissure. There is severe right and moderate left facet joint osteoarthritis. There is moderate bilateral neural foraminal stenosis. There is mild central ca nal stenosis with posterior decompression. L4-L5: The disc is bulging and has an annular fissure. There is severe bilateral facet joint osteoart hritis. There is moderate right and severe left neural foraminal stenosis. There is mild central placido l stenosis with posterior decompression. L5-S1: The disc does not extend beyond the endplate margin. There is moderate right and mild left fac et joint osteoarthritis. There is moderate right and mild left neural foraminal stenosis. There is no central canal stenosis. IMPRESSION: 1. T12 compression fracture, likely acute or subacute. 2. Moderate lumbar spondylosis. 3. Lumbar levoscoliosis. Reviewed, dictated and finalized at location A. [employer]
== END 2022-07-08 07:18 | disposition home or self-care (01) ==
PROVIDERS: PCP Family Medicine; Visit Provider Neurological Surgery
DX: G89.29 Other chronic pain (principal); M54.41 Lumbago with sciatica, right side; M54.42 Lumbago with sciatica, left side; M47.896 Other spondylosis, lumbar region; S22.080A Wedge compression fracture of T11-T12 vertebra, initial encounter for closed fracture; X58.XXXA Exposure to other specified factors, initial encounter
CPT/HCPCS: 72148

== ENCOUNTER 2022-07-28 11:37 | Outpatient (CLI) | payer MEDICARE, SELFPAY ==
[2022-07-28 13:52] LABS: Hemoglobin A1C 6.4 % (<5.7)
== END 2022-07-28 11:38 | disposition home or self-care (01) ==
PROVIDERS: PCP Family Medicine; Visit Provider Neurological Surgery
DX: Z68.38 Body mass index [BMI] 38.0-38.9, adult (principal)
CPT/HCPCS: 36415; 83036

== ENCOUNTER → 2022-10-12 13:27 | Outpatient (CLI) | payer MEDICARE, SELFPAY ==
--- NOTE | ~2022-10-12 | DEXA_ITS ---
Bone Density Report Name: SLICK CAICEDO Age: 67 Sex: Male Ethnicity: White Date of : 1955 Indication: Vitamin D Deficiency, Spondylosis, Spinal Stenosis. Referring Provider: JAZZ DELEON Study: Bone densitometry was performed. Exam Date: October 12, 2022 Accession number: [id number] Bone Density: Region BMD T-score Z-score Classification AP Spine (L1-L4) 1.359 2.4 3.3 Normal Femoral Neck (Left) 0.822 -0.8 0.4 Normal Total Hip (Left) 1.136 0.7 1.3 Normal Femoral Neck (Right) 0.745 -1.4 -0.2 Osteopenia Total Hip (Right) 1.021 -0.1 0.6 Normal Total Hip Mean 1.079 0.3 1.0 Normal World Health Organization criteria for BMD impression classify patients as: Normal (T-score at or above -1.0), Osteopenia (T-score between -1.0 and -2.5), or Osteoporosis (T-score at or below -2.5). 10-year Fracture Risk(1): Major Osteoporotic Fracture 5.3% Hip Fracture 0.9% Reported Risk Factors: [place] (), Neck BMD=0.745, BMI=36.6 Input outside FRAX(R) limits. Adjusted to:Nbmuan=624 kg (1) FRAX(R) Version 3.08. Fracture probability calculated for an untreated patient. Fracture probability may be lower if the patient has received treatment. Clinical Information Provided by Patient: Has used the following medications: Vitamin D Patient maximum height was 74 No regular weight bearing exercise Does not regularly consume dairy products Drinks caffeinated beverages Impression: The patient has low bone mass, based on the Right Femoral Neck T-score. The patient has an estimated ten-year risk of hip fracture of 0.9% and an estimated ten-year risk of major fracture of 5.3%, based on the WHO FRAX algorithm. Discussion: BONE DENSITY IS LOW AT ONE OR MORE SKELETAL SITES. This patient's lowest T-score is low at one or more skeletal sites. It meets the World Health Organization's (WHO) criteria for ?low bone mass? (T-score between -1.0 and -2.5). The patient's 10-year risk of fracture as calculated by FRAX is less than the threshold where pharmacological therapy is recommended by the National Osteoporosis Foundation (NOF). However, all treatment decisions require clinical judgment and consideration of individual patient factors, including patient preferences, comorbidities, previous drug use, risk factors not captured in the FRAX model (e.g., frailty, falls, vitamin D deficiency, increased bone turnover, interval significant decline in bone density) and possible under or overestimation of fracture risk by FRAX. The patient should follow a healthful lifestyle (good nutrition with adequate calcium and vitamin D, and appropriate weight-bearing exercise). Follow-Up: Consider repeating this study in 2 to 3 years to reassess this patient's status, or sooner if there is some new clinical indication. Reported by: Wan
--- NOTE | ~2022-10-12 | MR_ITS ---
MRI of the lumbar spine Clinical History: Spondylosis Technique: Axial T2-weighted images, and sagittal T1-weighted, T2-weighted, and T2 fat-sat images wer e acquired. COMPARISON: 07/08/2022 Findings: Chronic mild compression deformity of T12 noted. Grade 1 retrolisthesis of L1 over L2, and L2 over L3 noted, stable from prior exam. Osseous alignment is unchanged from prior exam. No suspicio us bone marrow signal abnormality seen. At L1-L2, there is disc bulge and facet arthropathy, contributing to focal moderate severe thecal sac compression/spinal canal stenosis. There is moderate bilateral neural foraminal narrowing. At L2-L3, disc bulge and facet arthropathy are present, resulting in moderate central canal stenosis/ thecal sac compression, with lateral recess stenosis. There is severe right neural foraminal narrowin g. There is minimal left neural foraminal narrowing. L3-L4, there is disc bulge and facet arthropathy, with no juan alberto central canal stenosis. Probable L3 l aminectomy. There is right lateral recess stenosis. There is moderate to severe left neural foraminal narrowing, and severe right neural foraminal narrowing. At L4-L5, there is disc bulge and facet arthropathy. Probable prior L4 laminectomy. No spinal canal s tenosis. There is severe bilateral neural foraminal narrowing. At L5-S1, there is facet arthropathy, right worse than left, without significant disc bulge. No juan alberto spinal canal stenosis. There is and probable moderate bilateral neural foraminal narrowing. Paravertebral soft tissues are unremarkable. Impression: Moderate to severe degenerative spondylosis, essentially unchanged from relatively recent prior exam. Osseous alignment and postoperative changes are stable from prior exam. Stable chronic compression fracture deformity of T12. Reviewed, dictated and finalized at [facility]. Impression: Moderate to severe degenerative spondylosis, essentially unchanged from relativ aj recent prior exam. Osseous alignment and postoperative changes are stable from prior exam. Stable chronic compression fracture deformity of T12.
== END ==
PROVIDERS: PCP Neurological Surgery; Visit Provider Neurological Surgery
DX: M47.816 Spondylosis without myelopathy or radiculopathy, lumbar region (principal); M85.88 Other specified disorders of bone density and structure, other site; S22.089A Unspecified fracture of T11-T12 vertebra, initial encounter for closed fracture
CPT/HCPCS: 72148; 77080

== ENCOUNTER 2022-11-14 11:11 | Outpatient (CLI) | payer MEDICARE, SELFPAY ==
[2022-11-14 11:56] LABS: Basophils Absolute Auto 0.1 K/mm3 (0.0-0.1); Basophils Percent Auto 0.6 % (0.2-1.2); Eosinophils Absolute Auto 0.2 K/mm3 (0-0.3); Eosinophils Percent Auto 1.6 % (0-4.4); Hematocrit 37.1 % (42.0-52.0); Hemoglobin 12.1 g/dL (14.0-18.0); Immature Granulocyte Absolute 0.02 K/mm3 (0.00-0.031); Immature Granulocyte Percent A 0.2 % (0-0.5); Lymphocytes Absolute Auto 3.13 K/mm3 (0.9-3.2); Lymphocytes Percent Auto 33.7 % (18.3-44.2); Mean Corpuscular HGB Conc 32.6 g/dl (32-36); Mean Corpuscular Hemoglobin 27.5 pg (26-34); Mean Corpuscular Volume 84.3 fl (80-100); Monocytes Absolute Auto 0.5 K/mm3 (0.1-0.6); Monocytes Percent Auto 5.3 % (2.6-8.5); Neutrophils Absolute Auto 5.4 K/mm3 (1.3-6.7); Neutrophils Percent Auto 58.6 % (45.5-73.1); Platelet Count Result 352 k/mm3 (150-375); Red Cell Distribution Width 13.5 % (11.5-14.5); White Blood Count 9.3 K/mm3 (4.5-10.0)
[2022-11-14 12:09] LABS: Alanine Aminotransferase 17 U/L (6-50); Alkaline Phosphatase 83 U/L (38-126); Anion Gap 9 mmol/L (8-16); Aspartate Amino Transferase 25 U/L (17-59); Bilirubin,Total 0.5 mg/dL (0.2-1.3); Blood Urea Nitrogen 27 mg/dL (9-20); Calcium 8.7 mg/dL (8.4-10.2); Carbon Dioxide 23 mmol/L (22-30); Chloride 105 mmol/L (98-107); Cholesterol 180 mg/dL (0-200); Estimated Glomerular Filt Rate 40; Glucose 134 mg/dL (65-110); HDL Direct 35 mg/dL; Potassium 4.3 mmol/L (3.4-5.0); Sodium 137 mmol/L (137-145); Triglycerides 249 mg/dL (<150)
[2022-11-14 12:19] LABS: LDL Cholesterol Direct 88 mg/dL
[2022-11-14 12:38] LABS: Prostate Specific Antigen 0.4 ng/mL (< OR = 4.0)
[2022-11-14 13:13] LABS: Folic Acid 7.5 ng/mL (2.76->20); Hepatitis C Virus Antibody Negative (Negative); Iron 88 ug/dL (49-181)
[2022-11-14 13:28] LABS: Percent Iron Saturation 28 % (20-50)
[2022-11-14 17:10] LABS: Appearance Urine Clear (Clear); Bacteria Urine None Seen /hpf; Bilirubin Urine Negative (Negative); Blood Urine Negative (Negative); Color Urine Yellow (Yellow); Glucose Urine UA 1+ mg/dL (Negative); Ketones Urine Negative (Negative); Leukocyte Esterase Ur Negative LEU/UL (NEGATIVE); Nitrate Urine Negative (Negative); Protein Urine 3+ mg/dL (Negative); RBC Urine 0-2 /hpf (0-2); Specific Grav Ur 1.018 (1.001-1.035); Squamous Epithelial Cell Urine None seen /hpf (Few); Urobilinogen Urine 0.2 mg/dL (<2.0); WBC Urine 0-5 /hpf (0-3)
[2022-11-14 17:18] LABS: Add Urine Microscopic? YES
[2022-11-14 18:35] LABS: Creatinine Urine 166.5 mg/dL
[2022-11-14 20:14] LABS: Microalbumin Urine Random > 1140.0 mg/L (0-16.7)
[2022-11-18 23:57] LABS: Vitamin D 1,25 (OH)2 Total 16 pg/mL (18-72); Vitamin D2 1,25 (OH)2 <8 pg/mL; Vitamin D3 1,25 (OH)2 16 pg/mL
== END 2022-11-14 11:12 | disposition home or self-care (01) ==
PROVIDERS: PCP Neurological Surgery; Visit Provider Family Medicine
DX: D64.9 Anemia, unspecified (principal); Z11.59 Encounter for screening for other viral diseases; E78.2 Mixed hyperlipidemia; E11.9 Type 2 diabetes mellitus without complications; R35.1 Nocturia; E55.9 Vitamin D deficiency, unspecified
CPT/HCPCS: 36415; 80048; 80061; 80076; 81001; 82043; 82607; 82652; 82728; 82746; 83540; 83550; 84153; 85025; 86803

== ENCOUNTER 2022-12-19 09:00 | Outpatient (CLI) | payer MEDICARE, SELFPAY ==
[2022-12-19 10:45] LABS: Partial Thromboplastin Time 25.8 SECONDS (22.3-36.8); Prothrombin Time 13.2 Seconds (11.1-14.7)
== END 2022-12-19 09:01 | disposition home or self-care (01) ==
LOC: ANHSURGERY 09:05
PROVIDERS: PCP Family Medicine; Visit Provider Neurological Surgery
DX: Z01.818 Encounter for other preprocedural examination (principal); M47.816 Spondylosis without myelopathy or radiculopathy, lumbar region
CPT/HCPCS: 36415; 85610; 85730; 86850; 86900; 86901

== ENCOUNTER 2022-12-23 15:09 | Observation (INO) | payer MEDICARE, SELFPAY ==
--- NOTE | 2022-12-15 13:36 | PC.NURSE ---
Report to the Outpatient Waiting Room, entrance under the green pavilion located off [facility], at time __0600 on date __12/22/22 . Planned Procedure Time: __0800 . Time changes happen often and if your time is changed the preop area will call you the afternoon before. - You and your visitor will be asked to self-screen and do not enter if you have any COVID symptoms. - A mask is optional within the hospital at this time. Patients may have clear liquids (water, carbonated beverages, clear teas, apple juice) until 3 hours prior to surgery with a maximum of 20 ounces. - No food from midnight until time of surgery - Infants may have breast milk until 4 hours before surgery, infant formula 6 hours prior to surgery. - Children will be allowed to drink immediately following surgery. If applicable, please bring a bottle or sippy cup to assist with drinking. Juice, water, soda, and popsicles are readily available. For infants on formula, please bring formula the day of surgery. Pacifiers are allowed. Take the following medications with a SIP of water the morning of surgery: _EYE DROPS,DULOXETINE, DO NOT STOP ANY OF YOUR OTHER PRESCRIPTION MEDICATIONS PRIOR TO SURGERY ?EXCEPT THE FOLLOWING Medications to discontinue per physician ALL VITAMINS/SUPPLEMENTS 3 DAYS PRE OP.LAST DOSE 12/19/22 Please no make-up, nail chinese, hairspray, perfume, deodorant, or body powder the day of surgery. No jewelry (including any body piercings) or valuables the day of surgery, leave them at home. Please take a shower or bath the night before, or the morning of, surgery with an antibacterial soap. Wear comfortable, loose fitting clothing. Children are encouraged to wear pajamas. - Jewelry must be removed prior to entering the operating room. Rings and piercings that are not removed may be cut off. - The hospital will not accept responsibility for valuables. - Please leave all valuables, including medications, at home the day of surgery. If you are going home after surgery, a licensed wheelchair van driver must drive you home. - NO public transportation without another adult if you receive anesthesia. - We recommend that an adult stay with you for 24 hours following discharge. - We also recommend that you do not drive, make important decision, drink alcoholic beverages, or take any drugs that were not prescribed by your health care provider for at least 24 hours after your discharge time. For Pediatric surgeries, we recommend two adults accompany the child home. Follow any additional instructions given to you from your surgeon. If you or anyone in your household have experienced Covid symptoms in the past week, please notify your surgeon or the nurse liaison at the phone number below for possible testing. Telephone instructions given to __PT'S JR ROBBINS and asked if any additional questions and then verbalized understanding. Patient advised to call surgeon office or pre surgery nurse liaison [phone] if any additional questions.
[2022-12-15 14:07] VITALS: BMI 42.0
[2022-12-22] VITALS (16 sets, daily range): BP systolic 97–154; BP diastolic 59–93; PULSE 65–86; RESP 12–20; TEMP 35.7–37.1; O2SAT 93–100
[2022-12-22 06:42] LABS: Glucose Point of Care 129 mg/dl (65-105)
[2022-12-22] MEDS: LACTATED RINGERS 1,000 ML 30 ML IV CONT ×2 (07:24→13:10)
--- NOTE | 2022-12-22 07:47 | WPDANESEPPF ---
Anes - Initial Pre Proc Eval Procedure: Operation Date: 12/22/22 08:00 Proposed Procedures p L1-5 Posterior Lumbar Interbody Fusion - Alo Diana MD Date/Time: 12/22/22 07:47 Surgeon: Alo Diana MD Pre Op Diagnosis: L1-5 spondylosis L1-3 stenosis,L3-5 for steno Patient Data Age: 67 Gender: M Height: 1.83 m Weight: 134.9 kg Last Vital Signs Temp 97.8 F 12/22/22 07:19 Pulse 72 12/22/22 07:19 Resp 16 12/22/22 07:19 BP 143/83 H 12/22/22 07:19 Pulse Ox 97 12/22/22 07:19 O2 Del Method Room Air 12/22/22 07:19 Allergies Allergy/AdvReac Type Severity Reaction Status Date / Time chlorhexidine AdvReac Severe Itching Verified 12/15/22 13:18 Home Medications Medication Instructions Recorded Confirmed Type dapagliflozin propanediol 10 mg 5 mg PO 3XW 04/26/22 12/22/22 History tablet (Farxiga) ferrous sulfate 324 mg (65 mg 324 mg PO DAILY 04/26/22 12/22/22 History iron) tablet,delayed release latanoprost 0.005 % eye drops 1 drp ophthalmic (eye) HS 04/26/22 12/22/22 History dorzolamide 22.3 mg-timolol 6.8 1 drp EACH EYE BID 09/15/22 12/22/22 History mg/mL eye drops cholecalciferol (vitamin D3) 50 2,000 unit PO DAILY 11/24/22 12/22/22 History mcg (2,000 unit) tablet cyanocobalamin (vitamin B-12) 1,000 mcg PO DAILY 11/24/22 12/22/22 History 1,000 mcg tablet amitriptyline 10 mg tablet 20 mg PO . q.h.s. #180 tabs 11/28/22 12/22/22 Rx duloxetine 60 mg capsule,delayed 60 mg PO BID #180 caps 12/13/22 12/22/22 Rx release lisinopril 40 mg tablet 40 mg PO DAILY #90 tabs 12/13/22 12/22/22 Rx metformin 1,000 mg tablet 1,000 mg PO BID #180 tabs 12/13/22 12/22/22 Rx atorvastatin 20 mg tablet 20 mg PO QAM 12/22/22 12/22/22 History Laboratory Tests 12/22/22 06:37 POC Capillary Glucose 129 H mg/dl (65-105) Patient hx anesthesia problems: none Family hx anesthesia problems: none Results Review: All pre-operative results and documents have been reviewed as part of the pre-operative evaluation. [facility] Past Medical History Medical History (Updated 11/24/22 @ 11:08 by Andre Ontiveros MD) Abscess of skin or subcutaneous tissue (~01/29/22) Left buttocks midline Actinic keratosis Acute pharyngitis Acute sinusitis Anemia (11/03/21) hemoglobin 11.4 on 11/03/2021. hemoglobin 12.0 with iron 43, 60% saturation and ferritin 32 but 12/13/2021. At high risk for falls (~11/24/22) BMI 38.0-38.9,adult BMI 39.0-39.9,adult Body mass index (BMI) 40.0-44.9, adult (03/04/19) Cholecystectomy planned Chronic depression Chronic kidney disease (CKD) stage G3a/A1, moderately decreased glomerular filtration rate (GFR) between 45-59 mL/min/1.73 square meter and albuminuria creatinine ratio less than 30 mg/g Chronic kidney disease (CKD) stage G3b/A1, moderately decreased glomerular filtration rate (GFR) between 30-44 mL/min/1.73 square meter and albuminuria creatinine ratio less than 30 mg/g BUN 20 day with creatinine 1.93 with GFR 35, decreased from 39 on 12/13/2021. BUN 33, creatinine 1.88 with GFR 38 on 04/05/2022. Chronic left shoulder pain resolved with total reverse shoulder surgery 05/10/2022. COVID-19 (~12/2021) fully vaccinated and moderate symptoms Cyanosis bilateral feet . Arterial Doppler study of the lower extremities 11/24/2021 was normal. Diabetes Diabetic neuropathy Duodenal ulcer disease (03/17/22) EGD with duodenal ulcers 03/17/2022. No ulcerations on EGD 05/05/2022. Edema of both lower legs due to peripheral venous insufficiency Encounter for hepatitis C screening test for low risk patient Screening was negative on 11/14/2022. Encounter for prostate cancer screening PSA 0.4 on 11/14/2022. FHx: cholecystectomy Gastritis (03/17/22) EGD on 03/17/2022 with gastritis and ulcerations . EGD on 05/05/2022 with nonerosive reflux with no gastritis or ulcerations. GERD with esophagitis (03/17/22) esophagitis on EGD 03/17/2022. Nonerosive reflux disease on EG
--- NOTE | 2022-12-22 07:51 | PM.IMHP ---
H&P: HPI History of Present Illness Date/Time: 12/22/22 07:51 Chief Complaint: Back and leg pain Narrative: Brenna is a 67-year-old gentleman with back and leg pain related to spondylosis, scoliosis, central canal and neural foraminal narrowing who presents for L1-2 5 redo decompression and fusion. He has not changed appreciably since we last saw him. He does not have any bowel or bladder difficulty or other constitutional problems. He is not having new dermatomal numbness or new specific muscle group weakness. Review of Systems Review of Systems: Patient denies shortness of breath, cough, fever, chills, nausea, vomiting, weight loss, weight gain, chest pain, dysuria. He has back and leg pain as above. His review of systems is otherwise negative on 12 systems except as noted elsewhere. [facility] Past Medical History Medical History Abscess of skin or subcutaneous tissue (~01/29/22) Left buttocks midline Actinic keratosis Acute pharyngitis Acute sinusitis Anemia (11/03/21) hemoglobin 11.4 on 11/03/2021. hemoglobin 12.0 with iron 43, 60% saturation and ferritin 32 but 12/13/2021. At high risk for falls (~11/24/22) BMI 38.0-38.9,adult BMI 39.0-39.9,adult Body mass index (BMI) 40.0-44.9, adult (03/04/19) Cholecystectomy planned Chronic depression Chronic kidney disease (CKD) stage G3a/A1, moderately decreased glomerular filtration rate (GFR) between 45-59 mL/min/1.73 square meter and albuminuria creatinine ratio less than 30 mg/g Chronic kidney disease (CKD) stage G3b/A1, moderately decreased glomerular filtration rate (GFR) between 30-44 mL/min/1.73 square meter and albuminuria creatinine ratio less than 30 mg/g BUN 20 day with creatinine 1.93 with GFR 35, decreased from 39 on 12/13/2021. BUN 33, creatinine 1.88 with GFR 38 on 04/05/2022. Chronic left shoulder pain resolved with total reverse shoulder surgery 05/10/2022. COVID-19 (~12/2021) fully vaccinated and moderate symptoms Cyanosis bilateral feet . Arterial Doppler study of the lower extremities 11/24/2021 was normal. Diabetes Diabetic neuropathy Duodenal ulcer disease (03/17/22) EGD with duodenal ulcers 03/17/2022. No ulcerations on EGD 05/05/2022. Edema of both lower legs due to peripheral venous insufficiency Encounter for hepatitis C screening test for low risk patient Screening was negative on 11/14/2022. Encounter for prostate cancer screening PSA 0.4 on 11/14/2022. FHx: cholecystectomy Gastritis (03/17/22) EGD on 03/17/2022 with gastritis and ulcerations . EGD on 05/05/2022 with nonerosive reflux with no gastritis or ulcerations. GERD with esophagitis (03/17/22) esophagitis on EGD 03/17/2022. Nonerosive reflux disease on EGD 05/05/2022. Hypercholesterolemia Hypertension Insomnia Iron deficiency anemia, unspecified (12/13/21) are low at 43 with 16% saturation and ferritin 32 with hemoglobin 12.0 on 12/13/2021. iron 59 with 22% saturation and ferritin 34 on 04/05/2022. Iron 88 with 28% saturation and ferritin 40.9 on 11/14/2022. Microscopic hematuria Morbid obesity with BMI of 40.0-44.9, adult Nonpalpable pulse bilateral feet . Arterial Doppler 11/24/2021 of the lower extremities was normal. Obesity (BMI 30-39.9) Open-angle glaucoma of both eyes followed by resident physician with last appointment 02/09/2021 Right elbow pain Screening for diabetic retinopathy dilated eye exam on 02/09/2021 reveals no retinopathy . Recheck in 1 year Vitamin B12 deficiency anemia Level normal at 865 with folic acid 7.5 and hemoglobin 12.1 on 11/14/2022. Vitamin D deficiency, unspecified Level normal at 36 on 09/09/2022 with level low at 16 on 11/14/2022. Worsening renal function Surgical History Surgical History H/O shoulder surgery Previous back surgery Family History Family History Father Reyna
--- NOTE | 2022-12-22 07:55 | WPDHPUPDATE1 ---
History and Physical Update Update Date/Time: 12/22/22 07:55 History and Physical has been reviewed, including an updated exam of the patient. There are NO changes in the patient's condition. Risks, benefits, and alternatives have been discussed and questions answered. Patient agrees to proceed with procedure.
[2022-12-22] MEDS: ceFAZolin 3 GM/D5W 100 ML 100 ML IVPB (08:00)
[2022-12-22] MEDS: LIDO 1%/EPINEPHRINE 1:100,000 50 ML VIAL 10 ML INFILTRATE (08:47)
[2022-12-22] MEDS: ceFAZolin SODIUM 1 GM VIAL 2 GM IV PUSH (12:20)
[2022-12-22 13:16] LABS: Glucose Point of Care 162 mg/dl (65-105)
[2022-12-22] MEDS: fentaNYL CITRATE INJ (*CRX) 100 MCG/2 ML VIAL 25 MCG IV PUSH ×8 (13:39→14:45)
--- NOTE | 2022-12-22 14:06 | SUR.PHASEI ---
1400 - dr gomes in recovery. talking with pt's family via phone
[2022-12-22] MEDS: HYDROmorphone HCL INJ (*CRX) 1 MG/ML SYR 0.5 MG IV PUSH ×2 (15:39→23:40)
[2022-12-22] MEDS: KCL 20 MEQ/D5/0.45% SOD CHL 1,000 ML 100 ML IV CONT (15:39)
[2022-12-22] MEDS: ceFAZolin 1 GM/NS 50 ML 1 GM/50 ML BAG IVPB ×2 (16:48→23:34)
[2022-12-22] MEDS: CYCLOBENZAPRINE HCL 10 MG TABLET PO (16:48)
[2022-12-22] MEDS: ATORVASTATIN 20 MG TABLET PO (16:49)
[2022-12-22] MEDS: CYANOCOBALAMIN 1,000 MCG TABLET 1000 MCG PO (16:50)
[2022-12-22] MEDS: CHOLECALCIFEROL 1,000 UNITS TABLET 2000 UNITS PO (16:50)
[2022-12-22] MEDS: lisinopriL 20 MG TABLET 40 MG PO (16:50)
[2022-12-22] MEDS: DORZOLAMIDE/TIMOLOL OPHTH SOL 10 ML BOTTLE 1 DROP EACH EYE (16:57)
[2022-12-22] MEDS: metFORMIN HCL 500 MG TABLET 1000 MG PO (20:25)
[2022-12-22] MEDS: DOCUSATE SODIUM 100 MG CAPSULE PO (20:25)
[2022-12-22] MEDS: DULoxetine HCL 60 MG CAPSULE.DR PO (20:25)
[2022-12-22] MEDS: AMITRIPTYLINE HCL 10 MG TABLET 20 MG PO (20:25)
[2022-12-22] MEDS: HYDROcodone/acetaminophen (*CRX) 10-325 MG TABLET 1 TAB PO (20:26)
[2022-12-22] MEDS: LATANOPROST 0.005% OP SOLN 2.5 ML BTL 1 DROP EACH EYE (20:26)
[2022-12-22 20:51] LABS: Glucose Point of Care 220 mg/dl (65-105)
[2022-12-23] VITALS (8 sets, daily range): BP systolic 146–190; BP diastolic 56–82; PULSE 73–83; RESP 18–20; TEMP 36.4–37; O2SAT 99–100
--- NOTE | ~2022-12-23 | XR_ITS ---
EXAMINATION: XR fluoroscopy no charge DATE: 12/22/2022 12:19 INDICATION: L1-L5 posterior spinal fusion TECHNIQUE: 3 fluoroscopic images of the lower spine were obtained during procedure performed by Dr. Huang berrios. Radiologist was not present for the imaging or procedure. The amount of fluoroscopy time use d during this procedure was 0.4 minutes. COMPARISON: 01/31/2022 FINDINGS: Images demonstrate placement of pedicle screws at L1-L5 for instrumented posterior spinal fusion. Int erbody fusion device for anterior spinal fusion are also seen at L2-L3, L3-L4 and L4-L5. IMPRESSION: 1. Thoracic utilized during placement of a combined instrumented L2-L5 anterior and L1-L5 posterior s geraldine fusion. See procedure note for further detail. Reviewed, dictated and finalized at location A. IMPRESSION: 1. Thoracic utilized during placement of a combined instrumented L2-L5 anterior and L1-L5 posterior spinal fusion. See procedure note for further detail.
[2022-12-23] MEDS: HYDROcodone/acetaminophen (*CRX) 10-325 MG TABLET 1 TAB PO ×3 (04:35→20:26)
[2022-12-23] MEDS: CYCLOBENZAPRINE HCL 10 MG TABLET PO (04:35)
[2022-12-23 06:05] LABS: Hematocrit 31.2 % (42.0-52.0); Hemoglobin 9.7 g/dL (14.0-18.0); Mean Corpuscular HGB Conc 31.1 g/dl (32-36); Mean Corpuscular Hemoglobin 27.8 pg (26-34); Mean Corpuscular Volume 89.4 fl (80-100); Platelet Count Result 288 k/mm3 (150-375); Red Blood Count 3.49 M/mm3 (4.6-6.20); Red Cell Distribution Width 13.5 % (11.5-14.5); White Blood Count 15.8 K/mm3 (4.5-10.0)
--- NOTE | 2022-12-23 07:55 | WPDANESPN ---
Anes - Prog Note Post-Op Date/Time: 12/23/22 07:55 Vital Signs: Last Vital Signs Temp 36.6 C 12/23/22 04:00 Pulse 73 12/23/22 04:00 Resp 18 12/23/22 04:00 BP 147/69 H 12/23/22 04:00 Pulse Ox 100 12/23/22 04:00 O2 Del Method Nasal Cannula 12/22/22 14:55 O2 Flow Rate 2 12/22/22 14:55 Pain Score (VAS): 3 I/O: Intake & Output 12/22/22 12/22/22 12/23/22 15:59 23:59 07:59 Intake Total 300 450 50 Output Total 379 262 8911 Balance 90 -200 -1210 Laboratory Tests 12/23/22 05:12 12/22/22 12/22/22 12/23/22 13:14 20:24 05:12 WBC 15.8 H RBC 3.49 L Hgb 9.7 L Hct 31.2 L MCV 89.4 MCH 27.8 MCHC 31.1 L RDW 13.5 Plt Count 288 MPV 10.0 POC Capillary Glucose 162 H 220 H Patient Feedback: Patient satisfied with anesthetic care.
[2022-12-23] MEDS: CHOLECALCIFEROL 1,000 UNITS TABLET 2000 UNITS PO (09:08)
[2022-12-23] MEDS: CYANOCOBALAMIN 1,000 MCG TABLET 1000 MCG PO (09:08)
[2022-12-23] MEDS: ATORVASTATIN 20 MG TABLET PO (09:08)
[2022-12-23] MEDS: DOCUSATE SODIUM 100 MG CAPSULE PO ×2 (09:09→20:27)
[2022-12-23] MEDS: DORZOLAMIDE/TIMOLOL OPHTH SOL 10 ML BOTTLE 1 DROP EACH EYE ×2 (09:10→17:11)
[2022-12-23] MEDS: DULoxetine HCL 60 MG CAPSULE.DR PO ×2 (09:10→20:26)
[2022-12-23] MEDS: EMPAGLIFLOZIN 10 MG TABLET PO (09:11)
[2022-12-23] MEDS: metFORMIN HCL 500 MG TABLET 1000 MG PO ×2 (09:12→20:26)
[2022-12-23] MEDS: ceFAZolin 1 GM/NS 50 ML 1 GM/50 ML BAG IVPB ×2 (09:13→16:04)
[2022-12-23] MEDS: lisinopriL 20 MG TABLET 40 MG PO (09:49)
[2022-12-23] MEDS: FERROUS SULFATE 324 MG TABLET PO (11:39)
--- NOTE | 2022-12-23 12:29 | PCPTNOTE ---
On 12/23/22, the student, [Lorraine Vance], provided care and completed [facility] documentation on this patient. I have reviewed the student's documentation and agree with the findings.
--- NOTE | 2022-12-23 17:39 | WPDNEUROSGPN ---
Progress Note: A&P Assessment and Plan (1) Synovial cyst of lumbar facet joint: Code(s): M71.38 - Other bursal cyst, other site Status: Acute Assessment and Plan: Elizabeth is doing well overall status post lumbar decomprssion and fusion for synovial cyst Continue to mobilize with PT Drain remains in place overnight; likely removal in am 12/24 Anticipate likely d/c to home on 12/24 pending pain control and mobilization Subjective Date/time seen: 12/23/22 17:39 Interval history: Patient notes improvement in low back and lower extremity symptoms Voided today Ambulating in room Tolerating po medication Exam Narrative: Awake, alert, oriented x 3 Speech CF ANALIA EOMI Face= TML MAEW with good strength Dressing CDI Objective Data Vital Signs Vital Signs: Vital Signs - 24 hr 12/22/22 17:58 12/22/22 20:23 12/22/22 23:37 Temperature 97.4 F L 98.8 F 97.7 F Pulse Rate 78 73 79 Respiratory Rate 20 18 20 Blood Pressure 154/71 H 119/68 141/65 H Pulse Oximetry 97 100 100 Oxygen Delivery 12/23/22 04:00 12/23/22 08:20 12/23/22 09:20 Temperature 97.9 F Pulse Rate 73 Respiratory Rate 18 Blood Pressure 147/69 H Pulse Oximetry 100 Oxygen Delivery Room Air Room Air 12/23/22 10:12 12/23/22 10:14 12/23/22 10:53 Temperature 98.6 F Pulse Rate 80 Respiratory Rate 20 Blood Pressure 190/82 H 146/68 H Pulse Oximetry 99 Oxygen Delivery 12/23/22 09:06 12/23/22 14:15 Temperature 97.6 F Pulse Rate 76 Respiratory Rate 20 Blood Pressure 166/71 H Pulse Oximetry 100 Oxygen Delivery Room Air Intake/Output Intake/Output: Intake & Output 12/20/22 12/21/22 12/22/22 12/23/22 23:59 23:59 23:59 23:59 Intake Total 750 1720 Output Total 860 1885 Balance -110 -165 Meds/Results Medications: Active Medications Generic Name Dose Route Start Last Admin Trade Name Freq PRN Reason Stop Dose Admin Hydrocodone Bitart/Acetaminophen 1 tab 12/22/22 15:02 Hydrocodone/Acetaminophen (*Crx) 5-325 Mg Tablet PO Q4H PRN Mild Pain (1-3) Hydrocodone Bitart/Acetaminophen 1 tab 12/22/22 15:02 12/23/22 09:48 Hydrocodone/Acetaminophen (*Crx) 10-325 Mg Tablet PO 1 tab Q4H PRN Administration Moderate Pain (4-6) Al Hydrox/Mg Hydrox/Simethicone 20 ml 12/22/22 15:02 Mag Hydrox/Al Hydrox/Simeth 30 Ml Udc PO Q4H PRN Indigestion/Heartburn Amitriptyline HCl 20 mg 12/22/22 21:00 12/22/22 20:25 Amitriptyline Hcl 10 Mg Tablet PO 20 mg HS NERISSA Administration Atorvastatin Calcium 20 mg 12/22/22 16:00 12/23/22 09:08 Atorvastatin 20 Mg Tablet PO 20 mg QAM NERISSA Administration Bisacodyl 10 mg 12/22/22 15:02 Bisacodyl 10 Mg Suppository RECTAL DAILY PRN Constipation Cyanocobalamin 1,000 mcg 12/22/22 16:00 12/23/22 09:08 Cyanocobalamin 1,000 Mcg Tablet PO 1,000 mcg DAILY NERISSA Administration Cyclobenzaprine HCl 10 mg 12/22/22 15:02 12/23/22 04:35 Cyclobenzaprine Hcl 10 Mg Tablet PO 10 mg TID PRN Administration Muscle Spasms Docusate Sodium 100 mg 12/22/22 21:00 12/23/22 09:09 Docusate Sodium 100 Mg Capsule PO 100 mg Q12HR NERISSA Administration Dorzolamide/Timolol 1 drop 12/22/22 17:00 12/23/22 17:11 Dorzolamide/Timolol Ophth Lily 10 Ml Bottle EACH EYE 1 drop 0900,1700 NERISSA Administration Duloxetine HCl 60 mg 12/22/22 21:00 12/23/22 09:10 Duloxetine Hcl 60 Mg Capsule.Dr PO 60 mg Q12HR NERISSA Administration Empagliflozin 10 mg 12/23/22 09:00 12/23/22 09:11 Empagliflozin 10 Mg Tablet PO 10 mg [id number]@0900 NERISSA Administration Ferrous Sulfate 324 mg 12/23/22 09:00 12/23/22 11:39 Ferrous Sulfate 324 Mg Tablet PO 324 mg DAILY NERISSA Administration Hydromorphone HCl 0.5 mg 12/22/22 15:02 12/22/22 23:40 Hydromorphone Hcl Inj (*Crx) 1 Mg/Ml Syr IV PUSH 0.5 mg Q2H PRN Administration Pain Rated 7-10 Cefazolin Sodium 1 gm in 50 mls
--- NOTE | 2022-12-23 18:22 | W.PM.PROC2 ---
Procedure Note - Detailed Date of Procedure 12/23/22 Pre-op Diagnosis L1-5 spondylosis L1-3 stenosis,L 2-3 Foraminal stenosis Post-op Diagnosis Same Procedure Performed L1 to L4 laminectomy and left-sided facetectomy, L2-3, L3-4 and L4-5 complete diskectomy and interbody arthrodesis utilizing titanium interbody device and local autograft, L1-2 posterolateral inner transverse fusion, L1-L5 pedicle screw instrumentation Surgeon Alo Diana MD Anesthesia General Description of Procedure patient was brought to the operating room in the supine position, was sedated, intubated and placed under general anesthesia in routine fashion. He was then turned into the prone position on a Marcio frame. The area of operation his back was examined, marked for incision, prepped and draped in routine sterile fashion. Incision was marked over the L1 through 5 spinous processes in the midline. This area was injected with 0.5% lidocaine with 1-137000 epinephrine. Intravenous antibiotics given prior to incision. Incision was made with a 10 blade scalpel down to the lumbodorsal fascia. A subperiosteal dissection of the muscle and soft tissue away from spinous process and lamina at L1 was performed with a subperiosteal elevator and Bovie cautery. A verifying x-rays obtained to verify the level of operation. At L2-2 5 lateral masses on each side and remaining lamina were uncovered using Bovie cautery. Bleeding was addressed with bipolar cautery and Gelfoam thrombin powder. On the left side a Midas Cornelio drill was used to resect the remaining lamina and to resect the pars at L1 through 4. Thusly the inferior articular process and facet on the left side at each of these levels was removed, morselized for later use as interbody autograft. Kerrison punches and curved curettes were used to define a plane with the dura and removed bone and ligament flush with the pedicle and through the foramina on the left side widely decompressing the exiting nerve roots and giving access to the disc space. With the thecal sac retracted and protected the disc space was entered on the left using an 11 blade scalpel. scrapers of various sizes, curettes of various configurations, a pituitary rongeur and a rasp were used to remove as much cartilaginous endplate and disc material as possible down to bleeding cortical surfaces on the opposing bones. the disc space was then sized appropriately sized interbody devices were chosen. These were filled with local autograft bone. The disc spaces were likewise filled with local autograft bone medially and anteriorly. The interbody devices were then placed from the left to a 2-3 mm countersink within the disc space at L2-3, L3-4 L4-5. Pedicle screw instrumentation was then performed on the left by observing and palpating the pedicle while a hole was made superior articular process above the pedicle using a Midas Cornelio drill. The pedicle was then cannulated with a pedicle probe, checked for continuity with the ball probe, tapped with a 5.5 mm tap and a 6.5 x 50 mm screw was placed in the L1 through 5 pedicles. On the right similarly using landmarks a hole was made in superior articular process above the pedicle using a Midas Cornelio drill. The pedicle was cannulated with a pedicle probe, checked for continuity with the ball probe, tapped with a 5.5 mm tap and a 6.5 x 50 mm screw was placed into each pedicle on the right from L1-5. Fluoroscopic guidance was used at L4-L5. I verifying x-rays obtained to verify good position of the instrumentation which was confirmed. Rods were placed in the screw heads on either side and secured in position using the caps that purpose. These were definitively tightened with the torque and anti torque device. The wound was then copiously irrigated with bacitracin irrigation all bleeding stopped with bipolar and Bovie cautery and Gelfoam thrombin powder. The wound was then closed in layered fashion over a medium Hemovac
[2022-12-23] MEDS: LATANOPROST 0.005% OP SOLN 2.5 ML BTL 1 DROP EACH EYE (20:26)
[2022-12-23] MEDS: AMITRIPTYLINE HCL 10 MG TABLET 20 MG PO (20:26)
[2022-12-23] MEDS: KCL 20 MEQ/D5/0.45% SOD CHL 1,000 ML 100 ML IV CONT (20:27)
[2022-12-24] VITALS (7 sets, daily range): BP systolic 136–170; BP diastolic 46–71; PULSE 75–85; RESP 18–20; TEMP 35.9–36.8; O2SAT 92–100
[2022-12-24] MEDS: ceFAZolin 1 GM/NS 50 ML 1 GM/50 ML BAG IVPB (00:13)
[2022-12-24] MEDS: CYCLOBENZAPRINE HCL 10 MG TABLET PO ×2 (00:16→16:54)
[2022-12-24] MEDS: HYDROcodone/acetaminophen (*CRX) 10-325 MG TABLET 1 TAB PO ×4 (00:16→22:08)
[2022-12-24] MEDS: ATORVASTATIN 20 MG TABLET PO (09:52)
[2022-12-24] MEDS: CYANOCOBALAMIN 1,000 MCG TABLET 1000 MCG PO (09:53)
[2022-12-24] MEDS: DOCUSATE SODIUM 100 MG CAPSULE PO ×2 (09:53→21:39)
[2022-12-24] MEDS: CHOLECALCIFEROL 1,000 UNITS TABLET 2000 UNITS PO (09:53)
[2022-12-24] MEDS: DORZOLAMIDE/TIMOLOL OPHTH SOL 10 ML BOTTLE 1 DROP EACH EYE ×2 (09:54→16:54)
[2022-12-24] MEDS: lisinopriL 20 MG TABLET 40 MG PO (09:54)
[2022-12-24] MEDS: FERROUS SULFATE 324 MG TABLET PO (09:54)
[2022-12-24] MEDS: DULoxetine HCL 60 MG CAPSULE.DR PO ×2 (09:54→21:39)
[2022-12-24] MEDS: metFORMIN HCL 500 MG TABLET 1000 MG PO ×2 (09:55→21:39)
[2022-12-24] MEDS: AMITRIPTYLINE HCL 10 MG TABLET 20 MG PO (21:39)
[2022-12-24] MEDS: LATANOPROST 0.005% OP SOLN 2.5 ML BTL 1 DROP EACH EYE (21:39)
[2022-12-25 03:00] VITALS: BP 184/51; PULSE 83; RESP 18; TEMP 36.3; O2SAT 100
[2022-12-25] MEDS: HYDROcodone/acetaminophen (*CRX) 10-325 MG TABLET 1 TAB PO (04:44)
[2022-12-25 08:39] VITALS: BP 149/63; PULSE 84; RESP 18; TEMP 36.4; O2SAT 99
[2022-12-25] MEDS: ATORVASTATIN 20 MG TABLET PO (08:46)
[2022-12-25] MEDS: CYANOCOBALAMIN 1,000 MCG TABLET 1000 MCG PO (08:46)
[2022-12-25] MEDS: CHOLECALCIFEROL 1,000 UNITS TABLET 2000 UNITS PO (08:46)
[2022-12-25] MEDS: DULoxetine HCL 60 MG CAPSULE.DR PO (08:47)
[2022-12-25] MEDS: FERROUS SULFATE 324 MG TABLET PO (08:47)
[2022-12-25] MEDS: DORZOLAMIDE/TIMOLOL OPHTH SOL 10 ML BOTTLE 1 DROP EACH EYE (08:47)
[2022-12-25] MEDS: lisinopriL 20 MG TABLET 40 MG PO (08:47)
[2022-12-25] MEDS: metFORMIN HCL 500 MG TABLET 1000 MG PO (08:48)
[2022-12-25] MEDS: CYCLOBENZAPRINE HCL 10 MG TABLET PO (08:54)
[2022-12-25] MEDS: DOCUSATE SODIUM 100 MG CAPSULE PO (08:54)
--- NOTE | 2023-01-23 12:58 | PM.DS ---
DS: Admitting Diagnosis Discharge Date 12/25/22 DS: Summary Time Spent with Patient Time attestation: Total time spent providing and/or coordinating discharge services: Discharge Plan Discharge Attending physician on discharge: Camilla Geiger Consulting providers: Hussain Dimas; Efrain Malcolm; Joselin Robin; Camilla Geiger Discharging Clinician: Camilla Geiger Anticipated Discharge Date/Time: 12/25/22 10:17 Patient Disposition: Home, Self-Care Activity: october shower Diet: regular Patient Instructions: Antibiotic Form Stand Alone Forms: General Discharge Information Follow-up/Referrals: Alo Diana MD [Physician] - 2 Weeks Discharge Medications: Continued cholecalciferol (vitamin D3) 50 mcg (2,000 unit) tablet 2,000 unit PO DAILY cyanocobalamin (vitamin B-12) 1,000 mcg tablet 1,000 mcg PO DAILY atorvastatin 20 mg tablet 20 mg PO QAM latanoprost 0.005 % drops 1 drp OPHTHALMIC (EYE) HS ferrous sulfate 324 mg (65 mg iron) tablet,delayed release (DR/EC) 324 mg PO DAILY Farxiga 10 mg tablet 5 mg PO 3XW Rx Instructions: MWF dorzolamide-timolol 22.3-6.8 mg/mL drops 1 drp EACH EYE BID Rx Instructions: EACH EYE amitriptyline 10 mg tablet 20 mg PO . q.h.s. Qty: 180 3RF metformin 1,000 mg tablet 1,000 mg PO BID Qty: 180 3RF lisinopril 40 mg tablet 40 mg PO DAILY Qty: 90 3RF duloxetine 60 mg capsule,delayed release(DR/EC) 60 mg PO BID Qty: 180 3RF No Action methylprednisolone [Medrol (Chandan)] 4 mg tablets,dose pack See Rx Instructions PO PER PKG DIR Qty: 21 0RF Rx Instructions: PO PER PKG DIR cyclobenzaprine 10 mg tablet 10 mg PO TID PRN (Reason: muscle spasm) Qty: 30 0RF hydrocodone-acetaminophen 5-325 mg tablet 1 - 2 tablet PO Q4H PRN (Reason: pain) Qty: 40 0RF Date of admission: 12/23/22 15:09 Primary Care Provider: Andre Ontiveros Admitting Provider: Alo Diana Attending physician on admission: Alo Diana Condition: Stable
--- NOTE | 2023-01-23 13:02 | P.DS_ITS ---
DS: Admitting Diagnosis Discharge Date 12/25/22 Admitting Diagnosis Lumbar stenosis, lumbar spondylosis, foraminal stenosis, lumbar, synovial cyst. DS: Discharge Diagnosis Discharge Diagnosis Plan Same DS: Summary Hospital Course Hospital Course: Brenna was brought to the operating room on 12/22/2022 where an L2-5 posterior lumbar interbody fusion L1-2 posterolateral instrumented fusion was performed without complication. The patient went to for postoperatively. Physical and o ccupational therapy were involved in his care. His drain Gardner catheter removed by postoperative day 2. By postoperative day 3 he was eating, ambulating, emptying his bladder, his pain was under control with by mouth pain medicine, he was afebrile with stable vital signs, his wound was clean, dry and intact. He was therefore allowed to be discharged home. Time Spent with Patient Time attestation: Total time spent providing and/or coordinating discharge services: Discharge Plan Discharge Attending physician on discharge: Camilla Geiger Consulting providers: Hussain Dimas; Efrain Malcolm; Joselin Robin; Camilla Geiger Discharging Clinician: Camilla Geiger Anticipated Discharge Date/Time: 12/25/22 10:17 Patient Disposition: Home, Self-Care Activity: october shower Diet: regular Patient Instructions: Antibiotic Form Stand Alone Forms: General Discharge Information Follow-up/Referrals: Alo Diana MD [Physician] - 2 Weeks Discharge Medications: Continued cholecalciferol (vitamin D3) 50 mcg (2,000 unit) tablet 2,000 unit PO DAILY cyanocobalamin (vitamin B-12) 1,000 mcg tablet 1,000 mcg PO DAILY atorvastatin 20 mg tablet 20 mg PO QAM latanoprost 0.005 % drops 1 drp OPHTHALMIC (EYE) HS ferrous sulfate 324 mg (65 mg iron) tablet,delayed release (DR/EC) 324 mg PO DAILY Farxiga 10 mg tablet 5 mg PO 3XW Rx Instructions: MWF dorzolamide-timolol 22.3-6.8 mg/mL drops 1 drp EACH EYE BID Rx Instructions: EACH EYE amitriptyline 10 mg tablet 20 mg PO . q.h.s. Qty: 180 3RF metformin 1,000 mg tablet 1,000 mg PO BID Qty: 180 3RF lisinopril 40 mg tablet 40 mg PO DAILY Qty: 90 3RF duloxetine 60 mg capsule,delayed release(DR/EC) 60 mg PO BID Qty: 180 3RF No Action methylprednisolone [Medrol (Chandan)] 4 mg tablets,dose pack See Rx Instructions PO PER PKG DIR Qty: 21 0RF Rx Instructions: PO PER PKG DIR cyclobenzaprine 10 mg tablet 10 mg PO TID PRN (Reason: muscle spasm) Qty: 30 0RF hydrocodone-acetaminophen 5-325 mg tablet 1 - 2 tablet PO Q4H PRN (Reason: pain) Qty: 40 0RF Date of admission: 12/23/22 15:09 Primary Care Provider: Andre Ontiveros Admitting Provider: Alo Diana Attending physician on admission: Alo Diana Condition: Stable
== END 2022-12-25 11:19 | disposition home or self-care (01) ==
LOC: ANHSURGERY 15:15 → ANH2MED 15:15
PROVIDERS: Admitting Provider Neurological Surgery; PCP Family Medicine; Visit Provider Neurological Surgery
PROC: (CPT 22612; principal; 2022-12-22 08:00)
DX: M47.816 Spondylosis without myelopathy or radiculopathy, lumbar region (principal); M48.061 Spinal stenosis, lumbar region without neurogenic claudication; M71.38 Other bursal cyst, other site; I12.9 Hypertensive chronic kidney disease with stage 1 through stage 4 chronic kidney disease, or unspecified chronic kidney disease; E11.22 Type 2 diabetes mellitus with diabetic chronic kidney disease; N18.32 Chronic kidney disease, stage 3b; Z86.16 Personal history of COVID-19; E11.40 Type 2 diabetes mellitus with diabetic neuropathy, unspecified; K21.9 Gastro-esophageal reflux disease without esophagitis; E78.00 Pure hypercholesterolemia, unspecified; Z91.81 History of falling; D51.9 Vitamin B12 deficiency anemia, unspecified; E55.9 Vitamin D deficiency, unspecified; F32.A Depression, unspecified; E66.01 Morbid (severe) obesity due to excess calories; Z68.41 Body mass index [BMI] 40.0-44.9, adult; Z79.84 Long term (current) use of oral hypoglycemic drugs; Z79.899 Other long term (current) drug therapy; Z82.49 Family history of ischemic heart disease and other diseases of the circulatory system
CPT/HCPCS: 22630; 22632 ×2; 22614; 22842; 20936; 36415; 71045; 72131; 74018; 80048; 80053; 81001; 82607; 82728; 82746; 82948; 83036; 83540; 83550; 83735; 83880; 84466; 85025; 85027; 85610; 85730; 86850; 86900; 86901; 93970; 96372; 96374; 96375; 96376; 97110; 97116; 97161; 97165; 97166; 97530; 97535; 99199; 99285; A9270; C1713; C8929; C9113; G0378; J0330; J0690; J1100; J1170; J1756; J1815; J1940; J2405; J2704; J2930; J3010; J3360; J3480; J7040; J7050; J7120; Q9957

== ENCOUNTER 2022-12-25 16:59 | Observation (INO) | payer MEDICARE, SELFPAY ==
[2022-12-25] VITALS (21 sets, daily range): BP systolic 119–147; BP diastolic 49–73; PULSE 77–107; RESP 20–31; TEMP 36.2–36.6; O2SAT 97–100; BMI 39.8
--- NOTE | ~2022-12-25 | CT_ITS ---
EXAMINATION: CT lumbar spine wo con DATE: 12/26/2022 17:43 INDICATION: Back pain. Lumbar fusion. TECHNIQUE: Computed tomography (CT) of the lumbar spine was performed without intravenous contrast. A utomated exposure control and iterative reconstruction technique were employed. The dose-length produ ct was 1409.26 mGy-cm. COMPARISON: CT abdomen and pelvis 12/24/2020, lumbar spine MRI 10/12/2022 FINDINGS: Again seen is osteonecrosis of left femoral head. There is 11 degrees levoscoliosis of lumb ar spine. There is a chronic compression fracture of T12 with 2/5 loss of height. There are changes o f anterior fusion procedures from L2-L3 through L4-L5 with interbody devices. The interbody device at all or-L5 extends 4 mm beyond the endplate margin in the left foraminal and subarticular zones. Ther e are changes of posterior fusion procedure from L1 to L5 with screws. There is posterior decompressi on from L1-L2 through L4-L5. There is moderately decreased disc height at L1-L2. The following disc l evels are specifically discussed: L1-L2: The disc is bulging. There is severe right facet joint osteoarthritis. There is moderate bilat eral neural foraminal stenosis. There is mild central canal stenosis with posterior decompression. L2-L3: There is severe right facet joint osteoarthritis. There is moderate right neural foraminal sukh nosis. There is mild left neural foraminal stenosis with posterior compression. There is no central c anal stenosis. L3-L4: There is severe right facet joint osteoarthritis. There is moderate right neural foraminal sukh nosis. There is moderate left neural foraminal stenosis with posterior decompression. There is no modesto tral canal stenosis. L4-L5: There is severe right facet joint osteoarthritis. There is moderate right neural foraminal sukh nosis. There is moderate left neural foraminal stenosis with posterior decompression. There is no modesto tral canal stenosis. L5-S1: The disc does not extend beyond the endplate margin. There is moderate right and mild left fac et joint osteoarthritis. There is mild right neural foraminal stenosis. There is no central canal sukh nosis. IMPRESSION: 1. Anterior fusion procedure from L2-L3 through L4-L5. 2. Posterior fusion procedure from L1 to L5. 3. Moderate lumbar spondylosis. 4. Lumbar levoscoliosis. 5. Osteonecrosis of left femoral head again seen. Right femoral head not included. Reviewed, dictated and finalized at location E. IMPRESSION: 1. Anterior fusion procedure from L2-L3 through L4-L5. 2. Posterior fusion procedure from L1 to L5. 3. Moderate lumbar spondylosis. 4. Lumbar levoscoliosis. 5. Osteonecrosis of left femoral head again seen. Right femoral head not includ ed.
--- NOTE | ~2022-12-25 | XR_ITS ---
EXAMINATION: XR chest 1V portable DATE: 12/26/2022 13:29 INDICATION: Chest pain. TECHNIQUE: A single frontal view of the chest was obtained. COMPARISON: None. FINDINGS: The chest demonstrates clear lungs without pneumonia, pleural effusion, or pneumothorax. Th e heart size is normal. There is a left shoulder arthroplasty. IMPRESSION: 1. No acute cardiopulmonary disease. Reviewed, dictated and finalized at location A.
--- NOTE | ~2022-12-25 | US_ITS ---
US venous doppler [facility] DATE: 12/26/2022 16:34 INDICATION: Bilateral severe lower extremity edema TECHNIQUE: Real-time and color flow imaging and Doppler analysis of the veins of the lower extremitie s COMPARISON: None FINDINGS: The greater saphenous veins are patent bilaterally. There is spontaneous and phasic flow an d normal augmentation and color flow signal and normal compression of the deep veins of both lower ex tremities. IMPRESSION: No evidence of deep venous thrombosis of the lower extremities Reviewed, dictated and finalized at Location A. Reviewed, dictated and finalized at location A.
--- NOTE | ~2022-12-25 | XR_ITS ---
EXAMINATION: XR abdomen/kub 1V DATE: 12/29/2022 16:29 INDICATION: One week of constipation TECHNIQUE: A supine view of the abdomen on 2 radiographs was obtained. COMPARISON: None. FINDINGS: Small to moderate amount of gas and stool scattered throughout the colon. No dilated loops of gas-carleen led bowel to suggest obstruction. Cholecystectomy clips in right upper quadrant. Eventration along th e right hemidiaphragm. Small left paracardial fat pad and associated lingular atelectasis at the left costophrenic angle. Heart size is normal. L2-L5 laminectomies with L1-L5 instrumented posterior spin al fusion with bilateral vertical laurel and pedicle screw fixation. Anterior fusion with interbody fusi on device at L2-L3 through L4-L5. Sclerosis at the bilateral femoral heads consistent with osteonecro sis. IMPRESSION: 1. No dilated bowel to suggest obstruction. 2. Osteonecrosis at the bilateral femoral heads. Reviewed, dictated and finalized at location L.
--- NOTE | 2022-12-25 18:15 | ED.BACK ---
HPI - Back Pain/Injury General Chief Complaint: Back Pain/Injury <Keely Mays PA-C - Last Filed: 12/25/22 20:33> Stated Complaint: post op pain <Keely Mays PA-C - Last Filed: 12/25/22 20:33> Time Seen by Provider: 12/25/22 17:16 <Keely Mays PA-C - Last Filed: 12/25/22 20:33> Source: patient and family <ASHLEY Urbina Last Filed: 12/25/22 20:33> Mode of arrival: wheelchair <ASHLEY Urbina Last Filed: 12/25/22 20:33> Limitations: no limitations <ASHLEY Urbina Last Filed: 12/25/22 20:33> History of Present Illness HPI Narrative: This is a 67-year-old male that presents to the emergency department for pain. Reports he was discharged this morning from our hospital after lumbar spinal surgery. Due to insurance reasons he was unable to get his pain medication. He has not had any pain medicine since this morning. He is experiencing pain in his low back and into his legs. He has not been able to ambulate or care for himself since he has been home today. Denies fevers, saddle anesthesia, or bowel/bladder incontinence. <Keely Mays PA-C - Last Filed: 12/25/22 20:33> Related Data Home Medications: Home Medications Medication Instructions Recorded Confirmed dapagliflozin propanediol 10 mg 5 mg PO 3XW 04/26/22 12/25/22 tablet (Farxiga) ferrous sulfate 324 mg (65 mg 324 mg PO DAILY 04/26/22 12/25/22 iron) tablet,delayed release latanoprost 0.005 % eye drops 1 drp ophthalmic (eye) HS 04/26/22 12/25/22 dorzolamide 22.3 mg-timolol 6.8 1 drp EACH EYE BID 09/15/22 12/25/22 mg/mL eye drops cholecalciferol (vitamin D3) 50 2,000 unit PO DAILY 11/24/22 12/25/22 mcg (2,000 unit) tablet cyanocobalamin (vitamin B-12) 1,000 mcg PO DAILY 11/24/22 12/25/22 1,000 mcg tablet atorvastatin 20 mg tablet 20 mg PO QAM 12/22/22 12/25/22 <Keely Mays PA-C - Last Filed: 12/25/22 20:33> Allergies/Adverse Reactions: Allergies Allergy/AdvReac Type Severity Reaction Status Date / Time chlorhexidine AdvReac Severe Itching Verified 12/15/22 13:18 <Keely Mays PA-C - Last Filed: 12/25/22 20:33> Review of Systems Review of Systems: CONSTITUTIONAL: Denies fever CARDIOVASCULAR: Denies chest pain, or edema. RESPIRATORY: Denies dyspnea. SKIN: Denies rash MUSCULOSKELETAL: Reports back pain, joint pain, and myalgia. NEUROLOGIC: Reports weakness. Denies numbness <Keely Mays PA-C - Last Filed: 12/25/22 20:33> All systems reviewed & are unremarkable except as noted in HPI and below <Keely Mays PA-C - Last Filed: 12/25/22 20:33> [facility] Past Medical History Medical History: Medical History Abscess of skin or subcutaneous tissue (~01/29/22) Left buttocks midline Actinic keratosis Acute pharyngitis Acute sinusitis Anemia (11/03/21) hemoglobin 11.4 on 11/03/2021. hemoglobin 12.0 with iron 43, 60% saturation and ferritin 32 but 12/13/2021. At high risk for falls (~11/24/22) BMI 38.0-38.9,adult BMI 39.0-39.9,adult Body mass index (BMI) 40.0-44.9, adult (03/04/19) Cholecystectomy planned Chronic depression Chronic kidney disease (CKD) stage G3a/A1, moderately decreased glomerular filtration rate (GFR) between 45-59 mL/min/1.73 square meter and albuminuria creatinine ratio less than 30 mg/g Chronic kidney disease (CKD) stage G3b/A1, moderately decreased glomerular filtration rate (GFR) between 30-44 mL/min/1.73 square meter and albuminuria creatinine ratio less than 30 mg/g BUN 20 day with creatinine 1.93 with GFR 35, decreased from 39 on 12/13/2021. BUN 33, creatinine 1.88 with GFR 38 on 04/05/2022. Chronic left shoulder pain resolved with total reverse shoulder surgery 05/10/2022. COVID-19 (~12/2021) fully vaccinated and moderate symptoms Cyanosis bilateral feet . Arterial Doppler study of the lower extremities 11/24/2021 was normal. Diabetes Diabetic neurop
[2022-12-25] MEDS: HYDROcodone/acetaminophen (*CRX) 5-325 MG TABLET 1 TAB PO (18:18)
[2022-12-25] MEDS: diazePAM INJ (*CRX) 10 MG/2 ML SYRINGE 5 MG IM (18:18)
[2022-12-25 18:25] LABS: Basophils Absolute Auto 0.1 K/mm3 (0.0-0.1); Basophils Percent Auto 0.5 % (0.2-1.2); Eosinophils Absolute Auto 0.2 K/mm3 (0-0.3); Eosinophils Percent Auto 1.3 % (0-4.4); Hematocrit 25.5 % (42.0-52.0); Hemoglobin 8.3 g/dL (14.0-18.0); Immature Granulocyte Absolute 0.09 K/mm3 (0.00-0.031); Immature Granulocyte Percent A 0.7 % (0-0.5); Lymphocytes Absolute Auto 2.64 K/mm3 (0.9-3.2); Lymphocytes Percent Auto 20.2 % (18.3-44.2); Mean Corpuscular HGB Conc 32.5 g/dl (32-36); Mean Corpuscular Hemoglobin 28.4 pg (26-34); Mean Corpuscular Volume 87.3 fl (80-100); Mean Platelet Volume 9.9 fl (7.4-10.4); Monocytes Absolute Auto 1.1 K/mm3 (0.1-0.6); Monocytes Percent Auto 8.6 % (2.6-8.5); Neutrophils Percent Auto 68.7 % (45.5-73.1); Platelet Count Result 295 k/mm3 (150-375); Red Blood Count 2.92 M/mm3 (4.6-6.20); Red Cell Distribution Width 13.4 % (11.5-14.5); White Blood Count 13.1 K/mm3 (4.5-10.0)
[2022-12-25 18:34] LABS: Anion Gap 9 mmol/L (8-16); Blood Urea Nitrogen 36 mg/dL (9-20); Calcium 8.4 mg/dL (8.4-10.2); Carbon Dioxide 22 mmol/L (22-30); Chloride 103 mmol/L (98-107); Estimated CRCL calculation 41 ml/min; Estimated Glomerular Filt Rate 30; Glucose 147 mg/dL (65-110); Potassium 4.6 mmol/L (3.4-5.0); Sodium 134 mmol/L (137-145)
--- NOTE | 2022-12-25 19:24 | PC.NURSE ---
Patient report given to JEREMIAH Larose. All questions answered and care of patient transferred.
[2022-12-25 19:55] LABS: Appearance Urine Clear (Clear); Bacteria Urine None Seen /hpf; Bilirubin Urine Negative (Negative); Blood Urine Negative (Negative); Color Urine Yellow (Yellow); Glucose Urine UA 3+ mg/dL (Negative); Hyaline Casts Urine Present /lpf; Ketones Urine Negative (Negative); Leukocyte Esterase Ur Negative LEU/UL (Negative); Nitrate Urine Negative (Negative); Protein Urine 2+ mg/dL (Negative); RBC Urine 0-2 /hpf (0-2); Specific Grav Ur 1.019 (1.001-1.035); Squamous Epithelial Cell Urine None seen /hpf (Few); Urobilinogen Urine 0.2 mg/dL (<2.0); WBC Urine 0-5 /hpf
[2022-12-25 20:00] LABS: Add Urine Microscopic? YES
[2022-12-25] MEDS: SODIUM CHLORIDE 0.9% IV 500 ML 999 ML IV CONT (20:54)
[2022-12-25 21:05] LABS: Glucose Point of Care 156 mg/dl (65-105)
--- NOTE | 2022-12-25 21:48 | PM.IMHP ---
H&P: HPI History of Present Illness Date/Time: 12/25/22 21:48 Chief Complaint: Lower back pain. Narrative: This is a 67-year-old gentleman with a past medical history including but not limited to the latest complicated by diabetic neuropathy, hypertension, dyslipidemia who was recently admitted of the neuro surgery service for a spinal intervention. Per Neurology note, he underwent?L1 to L4 laminectomy and? left-sided facetectomy, L2-3, L3-4 and L4-5 complete diskectomy and interbody arthrodesis utilizing titanium interbody device and local autograft, L1-2 posterolateral inner transverse fusion, L1-L5 pedicle screw instrumentation. The patient was discharged earlier today and is not able to function at home due to pain and bilateral lower extremity weakness. The neurosurgery service was consulted for evaluation and management. They requested an hospitalist admission and graciously accepted to see the patient in AM. The patient will be admitted under hospitalist service for observation and pain management. Review of Systems Review of Systems: CONSTITUTIONAL: Denies fever CARDIOVASCULAR: Denies chest pain, or edema. RESPIRATORY: Denies dyspnea. SKIN: Denies rash MUSCULOSKELETAL: Reports back pain, joint pain, and myalgia. NEUROLOGIC: Reports weakness. Denies numbness All systems reviewed & are unremarkable except as noted in HPI and below Constitutional: Constitutional: Reports as per HPI, Denies chills, Reports fatigue and Reports weakness Eyes: Eyes: Reports as per HPI and Denies no additional eye complaints ENT: Reports system reviewed and no additional complaints, except as documented, Reports as per HPI, Denies bleeding gums, Denies dental pain, Denies dizziness and Denies nasal congestion Cardiovascular: Cardiovascular: Reports as per HPI and Reports no additional cardiovascular complaints Respiratory: Respiratory: Reports as per HPI and Reports no additional respiratory complaints Gastrointestinal: Gastrointestinal: Reports as per HPI and Reports no additional gastrointestinal complaints Genitourinary: Genitourinary: Reports no additional male genitourinary complaints and Reports as per HPI Musculoskeletal: Musculoskeletal: Reports as per HPI, Reports abnormal gait, Reports back pain, Reports muscle weakness, Denies numbness and Denies tingling Integumentary/Breasts: Skin/Breast: Reports system reviewed and no additional complaints, except as docu and Reports rash (right ankle red discoloration.) Neurologic: Reports as per HPI, Denies focal weakness, Denies numbness, Denies radicular pain, Denies tingling and Denies paresthesias Comments: Cannot be aassessed due to pain and recent surgery, gait testing was differed due to risk of falls Psychiatric: Psychiatric: Reports no additional psychiatric complaints and Reports as per HPI Endocrine: Endocrine: Reports no additional endocrine complaints and Reports as per HPI Hematologic/Lymphatic: Hematologic/Lymphatic: Reports no additional hematologic/lymphatic complaints, Reports as per HPI, Denies easy bleeding and Denies easy bruising Allergic/Immunologic: Allergic/Immunologic: Reports no additional allergic/immunologic complaints and Reports as per HPI [facility] Past Medical History Medical History Abscess of skin or subcutaneous tissue (~01/29/22) Left buttocks midline Actinic keratosis Acute pharyngitis Acute sinusitis Anemia (11/03/21) hemoglobin 11.4 on 11/03/2021. hemoglobin 12.0 with iron 43, 60% saturation and ferritin 32 but 12/13/2021. At high risk for falls (~11/24/22) BMI 38.0-38.9,adult BMI 39.0-39.9,adult Body mass index (BMI) 40.0-44.9, adult (03/04/19) Cholecystectomy planned Chronic depression Chronic kidney disease (CKD) stage G3a/A1, moderately decreased glomerular filtration rate (GFR) between 45-59 mL/min/1.73 square meter and albuminuria creatinine ratio less than 30 mg/g Chronic kidney disease (C
[2022-12-25] MEDS: CYCLOBENZAPRINE HCL 10 MG TABLET PO (22:12)
[2022-12-25] MEDS: AMITRIPTYLINE HCL 10 MG TABLET 20 MG PO (22:12)
[2022-12-25] MEDS: HYDROcodone/acetaminophen (*CRX) 10-325 MG TABLET 1 TAB PO (22:12)
--- NOTE | 2022-12-26 | ECHO_ITS ---
Patient Info Name: Abhinav Moore Age: 67 years : 1955 Gender: Male Ht: 74 in Wt: 302 lbs BSA: 2.73 m2 HR: 79 bpm BP: 158 / 65 mmHg Heart Rhythm: Sinus Rhythm Technical Quality: Fair Exam Date: 12/26/2022 2:12 PM Exam Location: [facility] Patient Status: Inpatient Admit Date: 12/25/2022 Staff Ordering Physician: Tristin Pulido Interface Designer: Kenia Rahman RDCS Attending Provider: Inna Couch MD Referring Physician: Ashok KAUR; Exam Type: CA echo dop color flow w con Study Info Indications - bilateral lower extremity edema Complete two-dimensional, color flow and Doppler transthoracic echocardiogram is performed with contrast to opacify the left ventricle and to improve the deliniation of the left ventricle endocardial borders. Contrast/Agitated Saline Contrast/Ag. Saline: Definity Amount: 3.00 ml Administered By: Kenia Rahman RDCS Existing IV Access: Yes IV Access Condition: patent with no signs of infiltration Summary 1. Left ventricular chamber dimension is normal. 2. Definity contrast administered improved wall motion interpretation. 3. Left ventricular systolic function is normal, estimated at 65-70%. 4. There is moderate concentric increased left ventricular wall thickness. 5. The left ventricular diastolic function is grade I diastolic dysfunction. 6. E/e' 8 is minimally elevated. 7. There is mild aortic valve sclerosis. Left Ventricle E/e' 8 is minimally elevated. Definity contrast administered improved wall motion interpretation. Left ventricular chamber dimension is normal. Left ventricular systolic function is normal, estimated at 65-70%. There is moderate concentric increased left ventricular wall thickness. The left ventricular diastolic function is grade I diastolic dysfunction. Right Ventricle Right ventricular systolic function is normal and with normal TAPSE 1.9 cm. Right ventricular chamber dimension is normal. Left Atria Left atrial chamber dimension is normal. Right Atria Right atrial chamber dimension is normal. Aortic Valve The aortic valve is trileaflet. There is mild aortic valve sclerosis. There is no aortic valve stenosis. There is no aortic valve regurgitation. Pulmonic Valve There is no pulmonic regurgitation. Mitral Valve There is no mitral valve stenosis. There is no mitral valve regurgitation. Tricuspid Valve There is no tricuspid valve regurgitation. Pericardium/Pleural There is no pericardial effusion. Inferior Vena Cava Normal inferior vena cava with >50% collapse upon inspiration consistent with normal right atrial pressure, 5 mmHg. Aorta The aortic root size at the sinus of Valsalva is normal. Left Ventricular Outflow Tract Name Value Normal LVOT 2D LVOT Diameter 2.45 cm LVOT Doppler LVOT Peak Gradient 4 mmHg LVOT Mean Gradient 2 mmHg LVOT VTI 15.00 cm LVOT VTI/AV VTI Ratio 0.65 LVOT Stroke Volume 70.86 ml LVOT CO 5.28 l/min LVOT CI 1.94 L/m
[2022-12-26 00:53] VITALS: PULSE 80; RESP 20; O2SAT 99
[2022-12-26] MEDS: HYDROcodone/acetaminophen (*CRX) 10-325 MG TABLET 1 TAB PO ×3 (05:32→17:25)
[2022-12-26 05:52] VITALS: BP 158/65; PULSE 79; RESP 20; TEMP 36.7; O2SAT 100
[2022-12-26 08:02] LABS: Glucose Point of Care 129 mg/dl (65-105)
--- NOTE | 2022-12-26 08:15 | P.PNIM_ITS ---
Progress Note: A&P Assessment and Plan (1) Back pain: Qualifiers: Back pain laterality: midline Back pain location: low back pain Chronicity: acute Sciatica laterality: bilateral sciatica Sciatica presence: with sciatica Qualified Code(s): M54.42 - Lumbago with sciatica, left side; M54.41 - Lumbago with sciatica, right side Code(s): M54.9 - Dorsalgia, unspecified Status: Acute Assessment and Plan: * Presenting with bilateral lower extremity weakness, uncontrolled pain in the setting of recent laminectomy on December 23, 2022. * Continue pain management with norco * Defer further management to Neurology. * Will possibly need rehab at time of discharge * Neurosurgery consulted (2) Ambulatory dysfunction: Code(s): R26.2 - Difficulty in walking, not elsewhere classified Status: Acute Assessment and Plan: * PT and OT evaluation after pain management. * Given recent spinal Sx, defer to neurosurgery. (3) Anemia: Qualifiers: Anemia type: unspecified type Qualified Code(s): D64.9 - Anemia, unspecified Code(s): D64.9 - Anemia, unspecified Status: Acute Assessment and Plan: * Current H/H is 8.3/25.5 * Seems to have dropped since discharge from 9.7/31.2 * Check anemia studies * Supplement as indicated * Continue Iron from home * Could be iron deficiency anemia, dilutional, or of chronic disease * Trend H/H * transfuse as indicated with a Hgb <7.0 (4) Chronic kidney disease (CKD): Qualifiers: Chronic kidney disease stage: stage 3 (moderate) Chronic kidney disease stage 3 subtype: stage 3b (GFR 30-44) Qualified Code(s): N18.32 - Chronic kidney disease, stage 3b Code(s): N18.9 - Chronic kidney disease, unspecified Status: Acute Assessment and Plan: * 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 * Low fat diet * Life style changes * Photographic Reproduction Technician consult closer to discharge (7) Type 2 diabetes mellitus without complication, without long-term current use of insulin: Code(s): E11.9 - Type 2 diabetes mellitus without complications Status: Acute Assessment and Plan: * Resume home regimen metformin a 1000 mg b.i.d. was reduced to 500 mg b.i.d. due to kidney function. * Monitor Accu-Cheks. * ISS * Accu Cheks AC/HS * trend glucose * Adjust therapy as indicated (8) Acute kidney failure: Qualifiers: Acute renal failure type: unspecified Qualified Code(s): N17.9 - Acute kidney failure, unspecified Code(s): N17.9 - Acute kidney failure, unspecified Status: Acute Assessment and Plan: * Current BUN/Cr e
--- NOTE | 2022-12-26 08:15 | PM.IMPN ---
Progress Note: A&P Assessment and Plan (1) Back pain: Qualifiers: Back pain laterality: midline Back pain location: low back pain Chronicity: acute Sciatica laterality: bilateral sciatica Sciatica presence: with sciatica Qualified Code(s): M54.42 - Lumbago with sciatica, left side; M54.41 - Lumbago with sciatica, right side Code(s): M54.9 - Dorsalgia, unspecified Status: Acute Assessment and Plan: Presenting with bilateral lower extremity weakness, uncontrolled pain in the setting of recent laminectomy on December 23, 2022. Continue pain management with norco Defer further management to Neurology. Will possibly need rehab at time of discharge Neurosurgery consulted (2) Ambulatory dysfunction: Code(s): R26.2 - Difficulty in walking, not elsewhere classified Status: Acute Assessment and Plan: PT and OT evaluation after pain management. Given recent spinal Sx, defer to neurosurgery. (3) Anemia: Qualifiers: Anemia type: unspecified type Qualified Code(s): D64.9 - Anemia, unspecified Code(s): D64.9 - Anemia, unspecified Status: Acute Assessment and Plan: Current H/H is 8.3/25.5 Seems to have dropped since discharge from 9.7/31.2 Check anemia studies Supplement as indicated Continue Iron from home Could be iron deficiency anemia, dilutional, or of chronic disease Trend H/H transfuse as indicated with a Hgb <7.0 (4) Chronic kidney disease (CKD): Qualifiers: Chronic kidney disease stage: stage 3 (moderate) Chronic kidney disease stage 3 subtype: stage 3b (GFR 30-44) Qualified Code(s): N18.32 - Chronic kidney disease, stage 3b Code(s): N18.9 - Chronic kidney disease, unspecified Status: Acute Assessment and Plan: 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 Low fat diet Life style changes Hand Crown Pouncer consult closer to discharge (7) Type 2 diabetes mellitus without complication, without long-term current use of insulin: Code(s): E11.9 - Type 2 diabetes mellitus without complications Status: Acute Assessment and Plan: Resume home regimen metformin a 1000 mg b.i.d. was reduced to 500 mg b.i.d. due to kidney function. Monitor Accu-Cheks. ISS Accu Cheks AC/HS trend glucose Adjust therapy as indicated (8) Acute kidney failure: Qualifiers: Acute renal failure type: unspecified Qualified Code(s): N17.9 - Acute kidney failure, unspecified Code(s): N17.9 - Acute kidney failure, unspecified Status: Acute Assessment and Plan: Current BUN/Cr elevated over baseline at 36/2.20 Creatinine in October of 2022 was 1.70 Could be related to fluid overload, or progressive disease 4+ pitting edema noted to the bilateral lower extremities Baseline creatinine appears to be 1.4-1.7 Baseline GFR 38-40 Continue to trend avoid nephrotoxic medication Renal adjust medication as indicated [place] 1 dose of lasix 40mg IV (9) Lower extremity edema: Code(s): R60.0 - Localized edema Status: Acute Assessment and Plan: 4+ pitting edema bilateral lower extremities Echo is ordered Venous Dopplers were ordered Renal
--- NOTE | 2022-12-26 08:58 | PCOTNOTE ---
Attempted to see pt. for occupational therapy evaluation. Spoke with pt., who states he has been unable to ambulate since returning home, including getting out of his car requiring him to call paramedics to get him into his home. For safety concerns, pt. to be seen after Neurosurgery consultation. Nursing aware.
[2022-12-26] MEDS: metFORMIN HCL 500 MG TABLET PO ×2 (10:06→17:25)
[2022-12-26] MEDS: lisinopriL 20 MG TABLET 40 MG PO (10:06)
[2022-12-26] MEDS: SENNA/DOCUSATE SODIUM TABLET 1 TAB PO ×2 (10:17→17:25)
[2022-12-26] MEDS: CYCLOBENZAPRINE HCL 10 MG TABLET PO (10:17)
[2022-12-26] MEDS: polyethylene glycoL 3350 17 GM POWD.PACK PO (10:17)
[2022-12-26 10:30] LABS: Hematocrit 23.8 % (42.0-52.0); Hemoglobin 7.7 g/dL (14.0-18.0); Mean Corpuscular HGB Conc 32.4 g/dl (32-36); Mean Corpuscular Hemoglobin 28.6 pg (26-34); Mean Corpuscular Volume 88.5 fl (80-100); Mean Platelet Volume 9.3 fl (7.4-10.4); Platelet Count Result 248 k/mm3 (150-375); Red Blood Count 2.69 M/mm3 (4.6-6.20); Red Cell Distribution Width 13.2 % (11.5-14.5)
[2022-12-26 10:41] LABS: Alanine Aminotransferase 10 U/L (6-50); Albumin Level 3.1 g/dL (3.5-5.1); Alkaline Phosphatase 75 U/L (38-126); Anion Gap 7 mmol/L (8-16); Aspartate Amino Transferase 27 U/L (17-59); Bilirubin,Total 0.4 mg/dL (0.2-1.3); Blood Urea Nitrogen 34 mg/dL (9-20); Calcium 8.1 mg/dL (8.4-10.2); Carbon Dioxide 23 mmol/L (22-30); Chloride 103 mmol/L (98-107); Estimated CRCL calculation 48 ml/min; Estimated Glomerular Filt Rate 35; Glucose 172 mg/dL (65-110); Potassium 4.4 mmol/L (3.4-5.0); Sodium 133 mmol/L (137-145)
[2022-12-26 10:48] LABS: Transferrin 122 mg/dL (206-381)
[2022-12-26 10:50] LABS: NT Pro B Type Natriuretic Pept 927 pg/mL (19.9-100)
[2022-12-26 11:00] LABS: Iron 22 ug/dL (49-181)
[2022-12-26 11:11] LABS: Percent Iron Saturation 10 % (20-50)
[2022-12-26] MEDS: CHOLECALCIFEROL 1,000 UNITS TABLET 2000 UNITS PO (11:17)
[2022-12-26] MEDS: DORZOLAMIDE/TIMOLOL OPHTH SOL 10 ML BOTTLE 1 DROP EACH EYE ×2 (11:18→21:16)
[2022-12-26] MEDS: CYANOCOBALAMIN 1,000 MCG TABLET 1000 MCG PO (11:18)
[2022-12-26] MEDS: DULoxetine HCL 60 MG CAPSULE.DR PO ×2 (11:18→17:25)
[2022-12-26] MEDS: ATORVASTATIN 20 MG TABLET PO (11:18)
[2022-12-26] MEDS: FERROUS SULFATE 324 MG TABLET PO (11:18)
[2022-12-26] MEDS: FUROSEMIDE INJ 40 MG/4 ML VIAL IV PUSH (11:22)
[2022-12-26 11:48] LABS: Vitamin B12 > 1000.0 pg/mL (239-931)
[2022-12-26 12:25] LABS: Glucose Point of Care 169 mg/dl (65-105)
--- NOTE | 2022-12-26 13:54 | PCPTNOTE ---
Awaiting neurosurgery recommendation/complete work up prior to initiating PT. Per hospitalist Sander MORGAN, recommend waiting for Neurosurgery recommendations also. Will follow.
[2022-12-26] MEDS: PERFLUTREN LIPID MICROSPHERES 1.5 ML VIAL DILUTED TO 10 ML TOTAL VOLUME IV PUSH (14:15)
[2022-12-26 15:07] VITALS: BP 128/61; PULSE 74; RESP 20; TEMP 36.2; O2SAT 100
--- NOTE | 2022-12-26 15:11 | IVDEFINITY ---
Prior to administration of IV Definity the patient was educated on the risks and benefits of the imaging enhancing agent including potential adverse side effects. The patient verbalized understanding. Allergies were verified. No exclusion criteria were identified and at least one of the following inclusion criteria were met: 1) physician request, 2) patient technically difficult to image (per the [place] [employer]ocardi[employer] guidelines of two or more segments not discernable within the apical view), or 3) questionable left ventricular function. ?
--- NOTE | 2022-12-26 17:09 | WPDNEUROSGCN ---
Assessment and Plan Assessment and plan (1) Status post lumbar spinal fusion: Code(s): Z98.1 - Arthrodesis status Status: Acute Assessment and Plan: Brenna is a 67-year-old gentleman status post L1-5 fusion with posterior instrumentation and interbody devices at L2-3, L3-4 L4-5 who has failed to do well outside of hospital and was brought back for evaluation and potential rehab placement. I recommend a CT scan of the lumbar spine to check the construct make sure that it is in good order. I do not expect to have any issues with the operation. Physical and occupational therapy should be involved in his care. Rehab evaluation should take place. He currently appears neurologically intact. Consult date: 12/26/22 HPI: Abhinav Moore is a 67 year old male Who is well known to me for problems related to his back and who underwent an L1-5 fusion instrumentation posteriorly on 12/23/2022. He was in the hospital until this last Monday that is yesterday. He was discharged home but once he got home found himself not able to make transfers independently. He if required very significant help to get him from the car to the house. He was complaining of pain in his back. I spoke with him and his on the phone yesterday and instructed them to come back to the hospital because Abhinav likely required rehabilitation and was not safe at home and he could not make transfers and ambulate independently. The therefore came back to the [place] [facility] where there admitted further evaluation and treatment and perhaps rehab placement. He does not report any specific muscle group weakness of either lower extremity. He does complain of generalized weakness. Does not report any specific dermatomal numbness. He is not having new bowel or bladder difficulties. Review of Systems Review of Systems: Patient denies shortness of breath, cough, fever, chills, nausea, vomiting, weight loss, weight gain, chest pain, dysuria. He has back and anterior thigh discomfort as described. The review systems is otherwise negative on 12 systems except as noted elsewhere. [facility] Past Medical History Medical History Abscess of skin or subcutaneous tissue (~01/29/22) Left buttocks midline Actinic keratosis Acute pharyngitis Acute sinusitis Anemia (11/03/21) hemoglobin 11.4 on 11/03/2021. hemoglobin 12.0 with iron 43, 60% saturation and ferritin 32 but 12/13/2021. At high risk for falls (~11/24/22) BMI 38.0-38.9,adult BMI 39.0-39.9,adult Body mass index (BMI) 40.0-44.9, adult (03/04/19) Cholecystectomy planned Chronic depression Chronic kidney disease (CKD) stage G3a/A1, moderately decreased glomerular filtration rate (GFR) between 45-59 mL/min/1.73 square meter and albuminuria creatinine ratio less than 30 mg/g Chronic kidney disease (CKD) stage G3b/A1, moderately decreased glomerular filtration rate (GFR) between 30-44 mL/min/1.73 square meter and albuminuria creatinine ratio less than 30 mg/g BUN 20 day with creatinine 1.93 with GFR 35, decreased from 39 on 12/13/2021. BUN 33, creatinine 1.88 with GFR 38 on 04/05/2022. Chronic left shoulder pain resolved with total reverse shoulder surgery 05/10/2022. COVID-19 (~12/2021) fully vaccinated and moderate symptoms Cyanosis bilateral feet . Arterial Doppler study of the lower extremities 11/24/2021 was normal. Diabetes Diabetic neuropathy Duodenal ulcer disease (03/17/22) EGD with duodenal ulcers 03/17/2022. No ulcerations on EGD 05/05/2022. Edema of both lower legs due to peripheral venous insufficiency Encounter for hepatitis C screening test for low risk patient Screening was negative on 11/14/2022. Encounter for prostate cancer screening PSA 0.4 on 11/14/2022. FHx: cholecystectomy Gastritis (03/17/22) EGD on 03/17/2022 with gastritis and ulcerations . EGD on 05/05/2022 with nonerosive reflux with no gastritis or ulcerations. GERD with
[2022-12-26 17:30] LABS: Glucose Point of Care 153 mg/dl (65-105)
[2022-12-26 19:26] VITALS: BP 134/51; PULSE 75; RESP 20; TEMP 36.4; O2SAT 98
[2022-12-26 20:05] LABS: Glucose Point of Care 168 mg/dl (65-105)
[2022-12-26] MEDS: LATANOPROST 0.005% OP SOLN 2.5 ML BTL 1 DROP EACH EYE (21:17)
[2022-12-26] MEDS: AMITRIPTYLINE HCL 10 MG TABLET 20 MG PO (21:17)
[2022-12-27] MEDS: HYDROcodone/acetaminophen (*CRX) 10-325 MG TABLET 1 TAB PO ×2 (04:23→10:43)
[2022-12-27 05:32] VITALS: BP 167/75; PULSE 71; RESP 18; TEMP 35.2; O2SAT 100
[2022-12-27 06:07] LABS: Hematocrit 25.6 % (42.0-52.0); Hemoglobin 7.9 g/dL (14.0-18.0); Mean Corpuscular HGB Conc 30.9 g/dl (32-36); Mean Corpuscular Hemoglobin 27.5 pg (26-34); Mean Corpuscular Volume 89.2 fl (80-100); Mean Platelet Volume 9.8 fl (7.4-10.4); Platelet Count Result 312 k/mm3 (150-375); Red Blood Count 2.87 M/mm3 (4.6-6.20); Red Cell Distribution Width 13.1 % (11.5-14.5); White Blood Count 9.1 K/mm3 (4.5-10.0)
[2022-12-27 06:19] LABS: Alanine Aminotransferase 12 U/L (6-50); Albumin Level 3.3 g/dL (3.5-5.1); Alkaline Phosphatase 78 U/L (38-126); Anion Gap 6 mmol/L (8-16); Aspartate Amino Transferase 26 U/L (17-59); Bilirubin,Total 0.3 mg/dL (0.2-1.3); Blood Urea Nitrogen 31 mg/dL (9-20); Calcium 8.5 mg/dL (8.4-10.2); Carbon Dioxide 27 mmol/L (22-30); Chloride 102 mmol/L (98-107); Estimated CRCL calculation 54 ml/min; Estimated Glomerular Filt Rate 40; Glucose 164 mg/dL (65-110); Magnesium 1.8 mg/dL (1.6-2.3); Potassium 4.3 mmol/L (3.4-5.0); Sodium 135 mmol/L (137-145)
--- NOTE | 2022-12-27 07:15 | P.PNIM_ITS ---
Progress Note: A&P Assessment and Plan (1) Back pain: Qualifiers: Back pain laterality: midline Back pain location: low back pain Chronicity: acute Sciatica laterality: bilateral sciatica Sciatica presence: with sciatica Qualified Code(s): M54.42 - Lumbago with sciatica, left side; M54.41 - Lumbago with sciatica, right side Code(s): M54.9 - Dorsalgia, unspecified Status: Acute Assessment and Plan: * Presenting with bilateral lower extremity weakness, uncontrolled pain in the setting of recent laminectomy on December 23, 2022. * Continue pain management with norco, add morphine for breakthrough pain, and oxycodone for pain 7-10 * Defer further management to Neurosurgery * Will possibly need rehab at time of discharge * Neurosurgery consulted * CT of the spine shows moderate spondylolysis, Osteonecrosis of the left femoral head * Add gabapentin for increased neuropathy as well (2) Ambulatory dysfunction: Code(s): R26.2 - Difficulty in walking, not elsewhere classified Status: Acute Assessment and Plan: * PT and OT evaluation after pain management. * Given recent spinal Sx, defer to neurosurgery. * Could be related to the osteonecrosis of the bilateral femoral head, Severe lower extremity edema (3) Anemia: Qualifiers: Anemia type: unspecified type Qualified Code(s): D64.9 - Anemia, unspecified Code(s): D64.9 - Anemia, unspecified Status: Acute Assessment and Plan: * Current H/H is 7.9/25.6 * Seems to have dropped since discharge from 9.7/31.2 * Anemia labs iron 22, TIBC 227, % sat 10, Transferrin 122, Ferritin 139, B12 >1000, Folate 7.0 * Supplement as indicated * Continue Iron from home * transfuse iron 500mg IV once * Iron deficiency anemia noted * Trend H/H * transfuse as indicated with a Hgb <7.0 (4) Chronic kidney disease (CKD): Qualifiers: Chronic kidney disease stage: stage 3 (moderate) Chronic kidney disease stage 3 subtype: stage 3b (GFR 30-44) Qualified Code(s): N18.32 - Chronic kidney disease, stage 3b Code(s): N18.9 - Chronic kidney disease, unspecified Status: Acute Assessment and Plan: * 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 * Continue lisinopril * Current BUN/Cr elevated over baseline at 31/1.70 * Better today, back to baseline * Could be related to fluid overload * Baseline creatinine appears to be 1.4-1.7 * Baseline GFR 38-40 * Continue to trend * avoid nephrotoxic medication * Renal adjust medication as indicated (5) Secondary renal hyperparathyroidism: Code(s): N25.81 - Secondary hyperparathyroidism of renal origin Status: Acute Assessment and Plan: * Likely related to CKD * Supplement vitamin D * Calcium stable (6) Obesity (BMI 30-39.9): Code(s): E66.9 - Obesity, unspecified Status: Acute Assessment and Plan: * Diet and exercise. * Low fat diet * Life style changes * Pressfitter consult closer to discharge (7) Type 2 diabetes mellitus without complication, without long-term current use of insulin: Code(s): E11.9 - Type 2 diabetes mellitus without complications Status: Acute Assessment and Plan: * Current glucose 164 * Resume home regimen metformin a 1000 mg b.i.d. was reduced to 500 mg b.i.d. due to kidney func
--- NOTE | 2022-12-27 07:15 | PM.IMPN ---
Progress Note: A&P Assessment and Plan (1) Back pain: Qualifiers: Back pain laterality: midline Back pain location: low back pain Chronicity: acute Sciatica laterality: bilateral sciatica Sciatica presence: with sciatica Qualified Code(s): M54.42 - Lumbago with sciatica, left side; M54.41 - Lumbago with sciatica, right side Code(s): M54.9 - Dorsalgia, unspecified Status: Acute Assessment and Plan: Presenting with bilateral lower extremity weakness, uncontrolled pain in the setting of recent laminectomy on December 23, 2022. Continue pain management with norco, add morphine for breakthrough pain, and oxycodone for pain 7-10 Defer further management to Neurosurgery Will possibly need rehab at time of discharge Neurosurgery consulted CT of the spine shows moderate spondylolysis, Osteonecrosis of the left femoral head Add gabapentin for increased neuropathy as well (2) Ambulatory dysfunction: Code(s): R26.2 - Difficulty in walking, not elsewhere classified Status: Acute Assessment and Plan: PT and OT evaluation after pain management. Given recent spinal Sx, defer to neurosurgery. Could be related to the osteonecrosis of the bilateral femoral head, Severe lower extremity edema (3) Anemia: Qualifiers: Anemia type: unspecified type Qualified Code(s): D64.9 - Anemia, unspecified Code(s): D64.9 - Anemia, unspecified Status: Acute Assessment and Plan: Current H/H is 7.9/25.6 Seems to have dropped since discharge from 9.7/31.2 Anemia labs iron 22, TIBC 227, % sat 10, Transferrin 122, Ferritin 139, B12 >1000, Folate 7.0 Supplement as indicated Continue Iron from home transfuse iron 500mg IV once Iron deficiency anemia noted Trend H/H transfuse as indicated with a Hgb <7.0 (4) Chronic kidney disease (CKD): Qualifiers: Chronic kidney disease stage: stage 3 (moderate) Chronic kidney disease stage 3 subtype: stage 3b (GFR 30-44) Qualified Code(s): N18.32 - Chronic kidney disease, stage 3b Code(s): N18.9 - Chronic kidney disease, unspecified Status: Acute Assessment and Plan: 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 Low fat diet Life style changes L[employer] Prescription Clerk consult closer to discharge (7) Type 2 diabetes mellitus without complication, without long-term current use of insulin: Code(s): E11.9 - Type 2 diabetes mellitus without complications Status: Acute Assessment and Plan: Current glucose 164 Resume home regimen metformin a 1000 mg b.i.d. was reduced to 500 mg b.i.d. due to kidney function. Monitor Accu-Cheks. ISS Accu Cheks AC/HS trend glucose Adjust therapy as indicated (8) Acute kidney failure: Qualifiers: Acute renal failure type: unspecified Qualified Code(s): N17.9 - Acute kidney failure, unspecified Code(s): N17.9 - Acute kidney failure, unspecified Status: Acute Assessment and Plan: Current BUN/Cr elevated over baseline at 31/1.70 Creatinine in October of 2022 was 1.70 Could be related to fluid overload, or progressive disease 4+ pitting edema noted to the bilateral lower extremiti
[2022-12-27 08:00] VITALS: PULSE 71; RESP 18; O2SAT 100
[2022-12-27 08:37] LABS: Glucose Point of Care 124 mg/dl (65-105)
[2022-12-27] MEDS: DULoxetine HCL 60 MG CAPSULE.DR PO ×2 (09:07→17:18)
[2022-12-27] MEDS: FERROUS SULFATE 324 MG TABLET PO (09:07)
[2022-12-27] MEDS: lisinopriL 20 MG TABLET 40 MG PO (09:08)
[2022-12-27] MEDS: ATORVASTATIN 20 MG TABLET PO (09:08)
[2022-12-27] MEDS: DORZOLAMIDE/TIMOLOL OPHTH SOL 10 ML BOTTLE 1 DROP EACH EYE ×2 (09:08→20:04)
[2022-12-27] MEDS: CHOLECALCIFEROL 1,000 UNITS TABLET 2000 UNITS PO (09:08)
[2022-12-27] MEDS: CYANOCOBALAMIN 1,000 MCG TABLET 1000 MCG PO (09:08)
[2022-12-27] MEDS: SENNA/DOCUSATE SODIUM TABLET 1 TAB PO ×2 (09:08→17:18)
[2022-12-27] MEDS: metFORMIN HCL 500 MG TABLET PO ×2 (09:08→17:18)
[2022-12-27] MEDS: IRON SUCROSE COMPLEX 500 MG in SODIUM CHLORIDE 0.9% IV 250 ML 78.57 MG IVPB (09:08)
[2022-12-27] MEDS: polyethylene glycoL 3350 17 GM POWD.PACK PO ×3 (09:09→17:19)
[2022-12-27] MEDS: CYCLOBENZAPRINE HCL 10 MG TABLET PO (09:17)
[2022-12-27 12:32] LABS: Glucose Point of Care 152 mg/dl (65-105)
[2022-12-27] MEDS: methylPREDNISolone SOD SUCC 125 MG VIAL IV PUSH (13:09)
[2022-12-27] MEDS: GABAPENTIN 100 MG CAPSULE 200 MG PO ×2 (13:09→17:18)
[2022-12-27] MEDS: BISACODYL 10 MG SUPPOSITORY RECTAL (13:57)
[2022-12-27 14:00] VITALS: BP 158/71; PULSE 61; RESP 16; TEMP 36.4; O2SAT 100
[2022-12-27 16:55] LABS: Glucose Point of Care 247 mg/dl (65-105)
[2022-12-27] MEDS: AMITRIPTYLINE HCL 10 MG TABLET 20 MG PO (20:04)
[2022-12-27] MEDS: LATANOPROST 0.005% OP SOLN 2.5 ML BTL 1 DROP EACH EYE (20:04)
[2022-12-27] MEDS: PANTOPRAZOLE SODIUM IV 40 MG VIAL IV PUSH (20:04)
[2022-12-27 21:15] VITALS: BP 160/70; PULSE 73; RESP 16; TEMP 36.8; O2SAT 97
[2022-12-27 21:29] LABS: Glucose Point of Care 280 mg/dl (65-105)
[2022-12-28 05:06] LABS: Basophils Percent Auto 0.2 % (0.2-1.2); Hematocrit 25.8 % (42.0-52.0); Hemoglobin 8.4 g/dL (14.0-18.0); Immature Granulocyte Absolute 0.18 K/mm3 (0.00-0.031); Immature Granulocyte Percent A 1.4 % (0-0.5); Lymphocytes Absolute Auto 1.07 K/mm3 (0.9-3.2); Lymphocytes Percent Auto 8.2 % (18.3-44.2); Mean Corpuscular HGB Conc 32.6 g/dl (32-36); Mean Corpuscular Hemoglobin 28.3 pg (26-34); Mean Corpuscular Volume 86.9 fl (80-100); Mean Platelet Volume 9.7 fl (7.4-10.4); Monocytes Absolute Auto 0.4 K/mm3 (0.1-0.6); Neutrophils Absolute Auto 11.4 K/mm3 (1.3-6.7); Neutrophils Percent Auto 87.2 % (45.5-73.1); Platelet Count Result 373 k/mm3 (150-375); Red Blood Count 2.97 M/mm3 (4.6-6.20); Red Cell Distribution Width 12.9 % (11.5-14.5)
[2022-12-28 05:25] LABS: Alanine Aminotransferase 15 U/L (6-50); Albumin Level 3.5 g/dL (3.5-5.1); Alkaline Phosphatase 80 U/L (38-126); Anion Gap 8 mmol/L (8-16); Aspartate Amino Transferase 21 U/L (17-59); Bilirubin,Total 0.3 mg/dL (0.2-1.3); Blood Urea Nitrogen 32 mg/dL (9-20); Calcium 8.8 mg/dL (8.4-10.2); Carbon Dioxide 25 mmol/L (22-30); Chloride 101 mmol/L (98-107); Estimated CRCL calculation 57 ml/min; Estimated Glomerular Filt Rate 43; Glucose 228 mg/dL (65-110); Magnesium 1.9 mg/dL (1.6-2.3); Sodium 134 mmol/L (137-145)
[2022-12-28 05:29] VITALS: BP 173/81; PULSE 69; RESP 16; TEMP 36.6; O2SAT 100
[2022-12-28 06:37] VITALS: BP 173/73
[2022-12-28 08:00] VITALS: PULSE 69; RESP 16; O2SAT 100
[2022-12-28 08:24] LABS: Hemoglobin A1C 6.6 % (<5.7)
[2022-12-28 08:33] LABS: Glucose Point of Care 194 mg/dl (65-105)
[2022-12-28] MEDS: GABAPENTIN 100 MG CAPSULE 200 MG PO ×3 (09:05→17:01)
[2022-12-28] MEDS: CYANOCOBALAMIN 1,000 MCG TABLET 1000 MCG PO (09:05)
[2022-12-28] MEDS: ATORVASTATIN 20 MG TABLET PO (09:05)
[2022-12-28] MEDS: SENNA/DOCUSATE SODIUM TABLET 1 TAB PO ×2 (09:05→17:01)
[2022-12-28] MEDS: lisinopriL 20 MG TABLET 40 MG PO (09:05)
[2022-12-28] MEDS: FERROUS SULFATE 324 MG TABLET PO (09:05)
[2022-12-28] MEDS: CHOLECALCIFEROL 1,000 UNITS TABLET 2000 UNITS PO (09:05)
[2022-12-28] MEDS: DULoxetine HCL 60 MG CAPSULE.DR PO ×2 (09:05→17:01)
[2022-12-28] MEDS: PANTOPRAZOLE SODIUM IV 40 MG VIAL IV PUSH ×2 (09:06→20:49)
[2022-12-28] MEDS: polyethylene glycoL 3350 17 GM POWD.PACK PO ×3 (09:06→17:02)
[2022-12-28] MEDS: metFORMIN HCL 500 MG TABLET PO ×2 (09:06→17:02)
[2022-12-28] MEDS: DORZOLAMIDE/TIMOLOL OPHTH SOL 10 ML BOTTLE 1 DROP EACH EYE (09:06)
[2022-12-28 11:47] LABS: Glucose Point of Care 281 mg/dl (65-105)
--- NOTE | 2022-12-28 12:43 | P.PNIM_ITS ---
Progress Note: A&P Assessment and Plan (1) Back pain: Qualifiers: Back pain laterality: midline Back pain location: low back pain Chronicity: acute Sciatica laterality: bilateral sciatica Sciatica presence: with sciatica Qualified Code(s): M54.42 - Lumbago with sciatica, left side; M54.41 - Lumbago with sciatica, right side Code(s): M54.9 - Dorsalgia, unspecified Status: Acute Assessment and Plan: * Presenting with bilateral lower extremity weakness, uncontrolled pain in the setting of recent laminectomy on December 22, 2022. * Continue pain management with norco, add morphine for breakthrough pain, and oxycodone for pain 7-10 * Defer further management to Neurosurgery * Neurosurgery consulted * CT of the spine shows moderate spondylolysis, Osteonecrosis of the left femoral head * Add gabapentin for increased neuropathy as well * Awaiting SNF approval for discharge (2) Ambulatory dysfunction: Code(s): R26.2 - Difficulty in walking, not elsewhere classified Status: Acute Assessment and Plan: * PT and OT evaluation after pain management. * Given recent spinal Sx, defer to neurosurgery. * Could be related to the osteonecrosis of the bilateral femoral head, Severe lower extremity edema (3) Anemia: Qualifiers: Anemia type: unspecified type Qualified Code(s): D64.9 - Anemia, unspecified Code(s): D64.9 - Anemia, unspecified Status: Chronic Assessment and Plan: * Current H/H is 8.4/25.4 * Seems to have dropped since discharge from 9.7/31.2 * Anemia labs iron 22, TIBC 227, % sat 10, Transferrin 122, Ferritin 139, B12 >1000, Folate 7.0 * Supplement as indicated * Continue Iron from home * transfuse iron 500mg IV once * Iron deficiency anemia noted * Trend H/H * transfuse as indicated with a Hgb <7.0 (4) Chronic kidney disease (CKD): Qualifiers: Chronic kidney disease stage: stage 3 (moderate) Chronic kidney disease stage 3 subtype: stage 3b (GFR 30-44) Qualified Code(s): N18.32 - Chronic kidney disease, stage 3b Code(s): N18.9 - Chronic kidney disease, unspecified Status: Chronic Assessment and Plan: * 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 * Low fat diet * Life style changes * Chemical Operator consult closer to discharge (7) Type 2 diabetes mellitus without complication, without long-term current use of insulin: Code(s): E11.9 - Type 2 diabetes mellitus without complications Status: Chronic Assessment and Plan: * Resume home regimen metformin a 1000 mg b.i.d. was reduced to 500 mg b.i.d. due to kidney function. * Monitor Accu-Cheks. t.i.d. with meals sliding scale * Accu Cheks
--- NOTE | 2022-12-28 12:43 | PM.IMPN ---
Progress Note: A&P Assessment and Plan (1) Back pain: Qualifiers: Back pain laterality: midline Back pain location: low back pain Chronicity: acute Sciatica laterality: bilateral sciatica Sciatica presence: with sciatica Qualified Code(s): M54.42 - Lumbago with sciatica, left side; M54.41 - Lumbago with sciatica, right side Code(s): M54.9 - Dorsalgia, unspecified Status: Acute Assessment and Plan: Presenting with bilateral lower extremity weakness, uncontrolled pain in the setting of recent laminectomy on December 22, 2022. Continue pain management with norco, add morphine for breakthrough pain, and oxycodone for pain 7-10 Defer further management to Neurosurgery Neurosurgery consulted CT of the spine shows moderate spondylolysis, Osteonecrosis of the left femoral head Add gabapentin for increased neuropathy as well Awaiting SNF approval for discharge (2) Ambulatory dysfunction: Code(s): R26.2 - Difficulty in walking, not elsewhere classified Status: Acute Assessment and Plan: PT and OT evaluation after pain management. Given recent spinal Sx, defer to neurosurgery. Could be related to the osteonecrosis of the bilateral femoral head, Severe lower extremity edema (3) Anemia: Qualifiers: Anemia type: unspecified type Qualified Code(s): D64.9 - Anemia, unspecified Code(s): D64.9 - Anemia, unspecified Status: Chronic Assessment and Plan: Current H/H is 8.4/25.4 Seems to have dropped since discharge from 9.7/31.2 Anemia labs iron 22, TIBC 227, % sat 10, Transferrin 122, Ferritin 139, B12 >1000, Folate 7.0 Supplement as indicated Continue Iron from home transfuse iron 500mg IV once Iron deficiency anemia noted Trend H/H transfuse as indicated with a Hgb <7.0 (4) Chronic kidney disease (CKD): Qualifiers: Chronic kidney disease stage: stage 3 (moderate) Chronic kidney disease stage 3 subtype: stage 3b (GFR 30-44) Qualified Code(s): N18.32 - Chronic kidney disease, stage 3b Code(s): N18.9 - Chronic kidney disease, unspecified Status: Chronic Assessment and Plan: 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 Low fat diet Life style changes Manager Hydraulic consult closer to discharge (7) Type 2 diabetes mellitus without complication, without long-term current use of insulin: Code(s): E11.9 - Type 2 diabetes mellitus without complications Status: Chronic Assessment and Plan: Resume home regimen metformin a 1000 mg b.i.d. was reduced to 500 mg b.i.d. due to kidney function. Monitor Accu-Cheks. t.i.d. with meals sliding scale Accu Cheks AC/HS trend glucose Adjust therapy as indicated (8) Acute kidney failure: Qualifiers: Acute renal failure type: unspecified Qualified Code(s): N17.9 - Acute kidney failure, unspecified Code(s): N17.9 - Acute kidney failure, unspecified Status: Acute Assessment and Plan: Could be related to fluid overload, or progressive disease 4+ pitting edema noted to the bilateral lower extremities which is improved to +1 pitting edema Baseline creatinine appears to be 1.4-1.7; Baseline GFR 38-40 Continue to trend -- pa
[2022-12-28] MEDS: INSULIN ASPART (*BKC) 100 UNITS/ML SUB-Q ×2 (13:06→17:02)
[2022-12-28 13:47] VITALS: BP 139/61; PULSE 77; RESP 18; TEMP 36.4; O2SAT 99
--- NOTE | 2022-12-28 15:11 | PCCCNOTE ---
On 12/28/22, the student, [Belen Chaudhry], provided care and completed [facility] documentation on this patient. I have reviewed the student's documentation and agree with the findings.
[2022-12-28 17:03] LABS: Glucose Point of Care 267 mg/dl (65-105)
[2022-12-28 19:19] VITALS: BP 167/80; PULSE 69; RESP 20; TEMP 36.3; O2SAT 98
[2022-12-28 20:20] LABS: Glucose Point of Care 272 mg/dl (65-105)
[2022-12-28] MEDS: AMITRIPTYLINE HCL 10 MG TABLET 20 MG PO (20:48)
[2022-12-28] MEDS: LATANOPROST 0.005% OP SOLN 2.5 ML BTL 1 DROP EACH EYE (20:48)
[2022-12-29 05:04] LABS: Basophils Absolute Auto 0.1 K/mm3 (0.0-0.1); Basophils Percent Auto 0.3 % (0.2-1.2); Eosinophils Absolute Auto 0.2 K/mm3 (0-0.3); Eosinophils Percent Auto 1.2 % (0-4.4); Hematocrit 24.3 % (42.0-52.0); Hemoglobin 7.9 g/dL (14.0-18.0); Immature Granulocyte Absolute 0.24 K/mm3 (0.00-0.031); Immature Granulocyte Percent A 1.5 % (0-0.5); Lymphocytes Absolute Auto 4.06 K/mm3 (0.9-3.2); Lymphocytes Percent Auto 25.5 % (18.3-44.2); Mean Corpuscular HGB Conc 32.5 g/dl (32-36); Mean Corpuscular Hemoglobin 28.2 pg (26-34); Mean Corpuscular Volume 86.8 fl (80-100); Mean Platelet Volume 9.3 fl (7.4-10.4); Monocytes Absolute Auto 1.1 K/mm3 (0.1-0.6); Neutrophils Absolute Auto 10.3 K/mm3 (1.3-6.7); Neutrophils Percent Auto 64.5 % (45.5-73.1); Platelet Count Result 395 k/mm3 (150-375); White Blood Count 15.9 K/mm3 (4.5-10.0)
[2022-12-29 05:15] VITALS: BP 160/83; PULSE 74; RESP 20; TEMP 35.7; O2SAT 100
[2022-12-29 06:07] LABS: Alanine Aminotransferase 15 U/L (6-50); Albumin Level 3.2 g/dL (3.5-5.1); Alkaline Phosphatase 71 U/L (38-126); Anion Gap 6 mmol/L (8-16); Aspartate Amino Transferase 29 U/L (17-59); Bilirubin,Total 0.3 mg/dL (0.2-1.3); Blood Urea Nitrogen 37 mg/dL (9-20); Calcium 8.5 mg/dL (8.4-10.2); Carbon Dioxide 27 mmol/L (22-30); Chloride 101 mmol/L (98-107); Estimated CRCL calculation 57 ml/min; Estimated Glomerular Filt Rate 43; Glucose 164 mg/dL (65-110); Potassium 4.3 mmol/L (3.4-5.0); Sodium 134 mmol/L (137-145)
[2022-12-29] MEDS: GABAPENTIN 100 MG CAPSULE 200 MG PO ×3 (08:13→17:20)
[2022-12-29] MEDS: PANTOPRAZOLE SODIUM IV 40 MG VIAL IV PUSH ×2 (08:13→20:56)
[2022-12-29] MEDS: polyethylene glycoL 3350 17 GM POWD.PACK PO ×3 (08:13→17:20)
[2022-12-29] MEDS: CYANOCOBALAMIN 1,000 MCG TABLET 1000 MCG PO (08:14)
[2022-12-29] MEDS: ATORVASTATIN 20 MG TABLET PO (08:14)
[2022-12-29] MEDS: SENNA/DOCUSATE SODIUM TABLET 1 TAB PO ×2 (08:14→17:20)
[2022-12-29] MEDS: lisinopriL 20 MG TABLET 40 MG PO (08:14)
[2022-12-29] MEDS: DULoxetine HCL 60 MG CAPSULE.DR PO ×2 (08:14→17:20)
[2022-12-29] MEDS: CHOLECALCIFEROL 1,000 UNITS TABLET 2000 UNITS PO (08:15)
[2022-12-29] MEDS: DORZOLAMIDE/TIMOLOL OPHTH SOL 10 ML BOTTLE 1 DROP EACH EYE ×2 (08:15→17:21)
[2022-12-29] MEDS: FERROUS SULFATE 324 MG TABLET PO (08:15)
[2022-12-29] MEDS: metFORMIN HCL 500 MG TABLET PO ×2 (08:15→17:20)
[2022-12-29 08:17] LABS: Glucose Point of Care 125 mg/dl (65-105)
[2022-12-29] MEDS: HYDROcodone/acetaminophen (*CRX) 5-325 MG TABLET 1 TAB PO ×2 (08:32→13:07)
[2022-12-29] MEDS: CYCLOBENZAPRINE HCL 10 MG TABLET PO ×3 (08:33→21:09)
[2022-12-29 11:59] LABS: Glucose Point of Care 173 mg/dl (65-105)
[2022-12-29 14:30] VITALS: BP 144/77; PULSE 64; RESP 18; TEMP 36.7; O2SAT 100
[2022-12-29 17:07] LABS: Glucose Point of Care 170 mg/dl (65-105)
[2022-12-29 19:26] VITALS: BP 152/67; PULSE 65; RESP 19; TEMP 36.1; O2SAT 99
[2022-12-29 19:59] LABS: Glucose Point of Care 238 mg/dl (65-105)
[2022-12-29] MEDS: AMITRIPTYLINE HCL 10 MG TABLET 20 MG PO (20:56)
[2022-12-29] MEDS: LATANOPROST 0.005% OP SOLN 2.5 ML BTL 1 DROP EACH EYE (20:56)
[2022-12-30 05:04] LABS: Hemoglobin 8.4 g/dL (14.0-18.0); Mean Corpuscular HGB Conc 31.1 g/dl (32-36); Platelet Count Result 426 k/mm3 (150-375); Red Cell Distribution Width 13.2 % (11.5-14.5); White Blood Count 11.6 K/mm3 (4.5-10.0)
[2022-12-30 05:16] LABS: Alanine Aminotransferase 14 U/L (6-50); Albumin Level 3.3 g/dL (3.5-5.1); Alkaline Phosphatase 79 U/L (38-126); Anion Gap 6 mmol/L (8-16); Aspartate Amino Transferase 21 U/L (17-59); Bilirubin,Total 0.2 mg/dL (0.2-1.3); Blood Urea Nitrogen 35 mg/dL (9-20); Calcium 8.6 mg/dL (8.4-10.2); Carbon Dioxide 27 mmol/L (22-30); Chloride 103 mmol/L (98-107); Estimated CRCL calculation 51 ml/min; Estimated Glomerular Filt Rate 38; Glucose 166 mg/dL (65-110); Potassium 4.9 mmol/L (3.4-5.0); Sodium 136 mmol/L (137-145)
[2022-12-30 05:20] VITALS: BP 176/78; PULSE 65; RESP 19; TEMP 35.8; O2SAT 100
[2022-12-30] MEDS: CYCLOBENZAPRINE HCL 10 MG TABLET PO ×3 (05:51→21:07)
[2022-12-30 08:26] LABS: Glucose Point of Care 152 mg/dl (65-105)
[2022-12-30] MEDS: polyethylene glycoL 3350 17 GM POWD.PACK PO ×3 (08:45→17:11)
[2022-12-30] MEDS: GABAPENTIN 100 MG CAPSULE 200 MG PO ×3 (08:45→17:11)
[2022-12-30] MEDS: DULoxetine HCL 60 MG CAPSULE.DR PO ×2 (08:45→17:11)
[2022-12-30] MEDS: DORZOLAMIDE/TIMOLOL OPHTH SOL 10 ML BOTTLE 1 DROP EACH EYE ×2 (08:45→17:13)
[2022-12-30] MEDS: PANTOPRAZOLE SODIUM IV 40 MG VIAL IV PUSH ×2 (08:46→21:07)
[2022-12-30] MEDS: metFORMIN HCL 500 MG TABLET PO ×2 (08:46→17:11)
[2022-12-30] MEDS: FERROUS SULFATE 324 MG TABLET PO (08:46)
[2022-12-30] MEDS: lisinopriL 20 MG TABLET 40 MG PO (08:46)
[2022-12-30] MEDS: ATORVASTATIN 20 MG TABLET PO (08:46)
[2022-12-30] MEDS: SENNA/DOCUSATE SODIUM TABLET 1 TAB PO ×2 (08:46→17:11)
[2022-12-30] MEDS: CYANOCOBALAMIN 1,000 MCG TABLET 1000 MCG PO (08:46)
[2022-12-30] MEDS: CHOLECALCIFEROL 1,000 UNITS TABLET 2000 UNITS PO (08:46)
[2022-12-30] MEDS: HYDROcodone/acetaminophen (*CRX) 5-325 MG TABLET 1 TAB PO ×2 (08:50→13:43)
--- NOTE | 2022-12-30 10:28 | PCOTNOTE ---
Patient refused treatment this session due to patient just got to bed and his arms and legs hurt. (patient stated 04/04 across the board ). Patient reported having to make several trips to the bathroom.
[2022-12-30 12:06] LABS: Glucose Point of Care 205 mg/dl (65-105)
[2022-12-30] MEDS: LIDOCAINE 5% PATCH 1 PATCH TRANSDERM (12:12)
[2022-12-30] MEDS: INSULIN ASPART (*BKC) 100 UNITS/ML SUB-Q (12:13)
--- NOTE | 2022-12-30 13:50 | P.PNIM_ITS ---
Progress Note: A&P Assessment and Plan (1) Back pain: Qualifiers: Back pain laterality: midline Back pain location: low back pain Chronicity: acute Sciatica laterality: bilateral sciatica Sciatica presence: with sciatica Qualified Code(s): M54.42 - Lumbago with sciatica, left side; M54.41 - Lumbago with sciatica, right side Code(s): M54.9 - Dorsalgia, unspecified Status: Acute Assessment and Plan: * Presenting with bilateral lower extremity weakness, uncontrolled pain in the setting of recent laminectomy on December 22, 2022. * Continue pain management with norco, add morphine for breakthrough pain, and oxycodone for pain 7-10 * Flexeril t.i.d. scheduled. * Defer further management to Neurosurgery * Neurosurgery consulted * CT of the spine shows moderate spondylolysis, Osteonecrosis of the left femoral head * Add gabapentin for increased neuropathy as well * Awaiting SNF approval for discharge (2) Ambulatory dysfunction: Code(s): R26.2 - Difficulty in walking, not elsewhere classified Status: Acute Assessment and Plan: * PT and OT evaluation * Given recent spinal Sx, defer to neurosurgery. * Could be related to the osteonecrosis of the bilateral femoral head, Severe lower extremity edema (3) Anemia: Qualifiers: Anemia type: unspecified type Qualified Code(s): D64.9 - Anemia, unspecified Code(s): D64.9 - Anemia, unspecified Status: Chronic Assessment and Plan: * Anemia labs iron 22, TIBC 227, % sat 10, Transferrin 122, Ferritin 139, B12 >1000, Folate 7.0 * Supplement as indicated * Continue Iron from home * transfuse iron 500mg IV once * Iron deficiency anemia noted * Trend H/H * transfuse as indicated with a Hgb <7.0 (4) Chronic kidney disease (CKD): Qualifiers: Chronic kidney disease stage: stage 3 (moderate) Chronic kidney disease stage 3 subtype: stage 3b (GFR 30-44) Qualified Code(s): N18.32 - Chronic kidney disease, stage 3b Code(s): N18.9 - Chronic kidney disease, unspecified Status: Chronic Assessment and Plan: * 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 * Low fat diet * Life style changes * Watch Assembler consult closer to discharge (7) Type 2 diabetes mellitus without complication, without long-term current use of insulin: Code(s): E11.9 - Type 2 diabetes mellitus without complications Status: Chronic Assessment and Plan: * Resume home regimen metformin a 1000 mg b.i.d. was reduced to 500 mg b.i.d. due to kidney function. * Monitor Accu-Cheks. t.i.d. with meals sliding scale * Accu Cheks AC/HS * trend glucose * Adjust therapy as indicated
--- NOTE | 2022-12-30 13:50 | PM.IMPN ---
Progress Note: A&P Assessment and Plan (1) Back pain: Qualifiers: Back pain laterality: midline Back pain location: low back pain Chronicity: acute Sciatica laterality: bilateral sciatica Sciatica presence: with sciatica Qualified Code(s): M54.42 - Lumbago with sciatica, left side; M54.41 - Lumbago with sciatica, right side Code(s): M54.9 - Dorsalgia, unspecified Status: Acute Assessment and Plan: Presenting with bilateral lower extremity weakness, uncontrolled pain in the setting of recent laminectomy on December 22, 2022. Continue pain management with norco, add morphine for breakthrough pain, and oxycodone for pain 7-10 Flexeril t.i.d. scheduled. Defer further management to Neurosurgery Neurosurgery consulted CT of the spine shows moderate spondylolysis, Osteonecrosis of the left femoral head Add gabapentin for increased neuropathy as well Awaiting SNF approval for discharge (2) Ambulatory dysfunction: Code(s): R26.2 - Difficulty in walking, not elsewhere classified Status: Acute Assessment and Plan: PT and OT evaluation Given recent spinal Sx, defer to neurosurgery. Could be related to the osteonecrosis of the bilateral femoral head, Severe lower extremity edema (3) Anemia: Qualifiers: Anemia type: unspecified type Qualified Code(s): D64.9 - Anemia, unspecified Code(s): D64.9 - Anemia, unspecified Status: Chronic Assessment and Plan: Anemia labs iron 22, TIBC 227, % sat 10, Transferrin 122, Ferritin 139, B12 >1000, Folate 7.0 Supplement as indicated Continue Iron from home transfuse iron 500mg IV once Iron deficiency anemia noted Trend H/H transfuse as indicated with a Hgb <7.0 (4) Chronic kidney disease (CKD): Qualifiers: Chronic kidney disease stage: stage 3 (moderate) Chronic kidney disease stage 3 subtype: stage 3b (GFR 30-44) Qualified Code(s): N18.32 - Chronic kidney disease, stage 3b Code(s): N18.9 - Chronic kidney disease, unspecified Status: Chronic Assessment and Plan: 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 Low fat diet Life style changes Cloth Printing Inspector consult closer to discharge (7) Type 2 diabetes mellitus without complication, without long-term current use of insulin: Code(s): E11.9 - Type 2 diabetes mellitus without complications Status: Chronic Assessment and Plan: Resume home regimen metformin a 1000 mg b.i.d. was reduced to 500 mg b.i.d. due to kidney function. Monitor Accu-Cheks. t.i.d. with meals sliding scale Accu Cheks AC/HS trend glucose Adjust therapy as indicated (8) Acute kidney failure: Qualifiers: Acute renal failure type: unspecified Qualified Code(s): N17.9 - Acute kidney failure, unspecified Code(s): N17.9 - Acute kidney failure, unspecified Status: Acute Assessment and Plan: Could be related to fluid overload, or progressive disease 4+ pitting edema noted to the bilateral lower extremities which is improved to +1 pitting edema Baseline creatinine appears to be 1.4-1.7; Baseline GFR 38-40 Continue to trend -- patient back to baseline avoid nephrotoxic medication Renal adjust medica
[2022-12-30 14:11] VITALS: BP 149/67; PULSE 67; RESP 16; TEMP 36.7; O2SAT 100
[2022-12-30 17:05] LABS: Glucose Point of Care 120 mg/dl (65-105)
[2022-12-30 19:37] VITALS: BP 140/62; PULSE 73; RESP 18; TEMP 36.6; O2SAT 100
[2022-12-30] MEDS: AMITRIPTYLINE HCL 10 MG TABLET 20 MG PO (21:07)
[2022-12-30] MEDS: LATANOPROST 0.005% OP SOLN 2.5 ML BTL 1 DROP EACH EYE (21:08)
[2022-12-30 21:42] LABS: Glucose Point of Care 227 mg/dl (65-105)
[2022-12-31 04:58] VITALS: BP 157/63; PULSE 71; RESP 16; TEMP 36.5; O2SAT 100
[2022-12-31 05:34] LABS: Hematocrit 26.6 % (42.0-52.0); Hemoglobin 8.3 g/dL (14.0-18.0); Mean Corpuscular HGB Conc 31.2 g/dl (32-36); Mean Corpuscular Hemoglobin 28.5 pg (26-34); Mean Corpuscular Volume 91.4 fl (80-100); Mean Platelet Volume 9.3 fl (7.4-10.4); Platelet Count Result 446 k/mm3 (150-375); Red Blood Count 2.91 M/mm3 (4.6-6.20); Red Cell Distribution Width 13.4 % (11.5-14.5); White Blood Count 10.5 K/mm3 (4.5-10.0)
[2022-12-31 05:49] LABS: Anion Gap 3 mmol/L (8-16); Blood Urea Nitrogen 32 mg/dL (9-20); Calcium 8.7 mg/dL (8.4-10.2); Carbon Dioxide 28 mmol/L (22-30); Chloride 103 mmol/L (98-107); Estimated CRCL calculation 48 ml/min; Estimated Glomerular Filt Rate 35; Glucose 167 mg/dL (65-110); Potassium 4.8 mmol/L (3.4-5.0); Sodium 134 mmol/L (137-145)
[2022-12-31 07:34] LABS: Glucose Point of Care 136 mg/dl (65-105)
[2022-12-31] MEDS: CYCLOBENZAPRINE HCL 10 MG TABLET PO ×3 (08:04→21:00)
[2022-12-31] MEDS: CHOLECALCIFEROL 1,000 UNITS TABLET 2000 UNITS PO (08:04)
[2022-12-31] MEDS: FUROSEMIDE INJ 40 MG/4 ML VIAL IV PUSH (08:04)
[2022-12-31] MEDS: ATORVASTATIN 20 MG TABLET PO (08:04)
[2022-12-31] MEDS: metFORMIN HCL 500 MG TABLET PO ×2 (08:04→17:17)
[2022-12-31] MEDS: CYANOCOBALAMIN 1,000 MCG TABLET 1000 MCG PO (08:05)
[2022-12-31] MEDS: SENNA/DOCUSATE SODIUM TABLET 1 TAB PO ×2 (08:05→17:17)
[2022-12-31] MEDS: DORZOLAMIDE/TIMOLOL OPHTH SOL 10 ML BOTTLE 1 DROP EACH EYE ×2 (08:05→17:17)
[2022-12-31] MEDS: FERROUS SULFATE 324 MG TABLET PO (08:05)
[2022-12-31] MEDS: DULoxetine HCL 60 MG CAPSULE.DR PO ×2 (08:05→17:17)
[2022-12-31] MEDS: GABAPENTIN 100 MG CAPSULE 200 MG PO ×3 (08:06→17:17)
[2022-12-31] MEDS: PANTOPRAZOLE SODIUM IV 40 MG VIAL IV PUSH ×2 (08:06→20:59)
[2022-12-31] MEDS: lisinopriL 20 MG TABLET 40 MG PO (08:06)
[2022-12-31] MEDS: polyethylene glycoL 3350 17 GM POWD.PACK PO ×3 (08:06→17:17)
[2022-12-31] MEDS: LIDOCAINE 5% PATCH 1 PATCH TRANSDERM (08:06)
[2022-12-31 11:34] LABS: Glucose Point of Care 215 mg/dl (65-105)
[2022-12-31] MEDS: HYDROcodone/acetaminophen (*CRX) 5-325 MG TABLET 1 TAB PO (12:10)
[2022-12-31] MEDS: INSULIN ASPART (*BKC) 100 UNITS/ML SUB-Q (12:10)
[2022-12-31 14:07] VITALS: BP 135/57; PULSE 71; RESP 18; TEMP 36.3; O2SAT 99
[2022-12-31 16:56] LABS: Glucose Point of Care 198 mg/dl (65-105)
[2022-12-31 19:17] VITALS: BP 131/68; PULSE 76; RESP 20; TEMP 37.1; O2SAT 100
[2022-12-31 20:12] LABS: Glucose Point of Care 228 mg/dl (65-105)
[2022-12-31] MEDS: LATANOPROST 0.005% OP SOLN 2.5 ML BTL 1 DROP EACH EYE (20:59)
[2022-12-31] MEDS: AMITRIPTYLINE HCL 10 MG TABLET 20 MG PO (21:00)
[2023-01-01 04:30] VITALS: BP 116/49; PULSE 64; RESP 20; TEMP 37; O2SAT 100
[2023-01-01] MEDS: CYCLOBENZAPRINE HCL 10 MG TABLET PO ×2 (05:22→21:03)
[2023-01-01 06:06] LABS: Hematocrit 27.8 % (42.0-52.0); Hemoglobin 8.5 g/dL (14.0-18.0); Mean Corpuscular HGB Conc 30.6 g/dl (32-36); Mean Corpuscular Hemoglobin 27.7 pg (26-34); Mean Corpuscular Volume 90.6 fl (80-100); Mean Platelet Volume 9.3 fl (7.4-10.4); Platelet Count Result 476 k/mm3 (150-375); Red Blood Count 3.07 M/mm3 (4.6-6.20); Red Cell Distribution Width 13.2 % (11.5-14.5); White Blood Count 10.7 K/mm3 (4.5-10.0)
[2023-01-01 08:01] LABS: Glucose Point of Care 150 mg/dl (65-105)
[2023-01-01] MEDS: metFORMIN HCL 500 MG TABLET PO ×2 (08:11→17:06)
[2023-01-01] MEDS: ATORVASTATIN 20 MG TABLET PO (08:11)
[2023-01-01] MEDS: CHOLECALCIFEROL 1,000 UNITS TABLET 2000 UNITS PO (08:11)
[2023-01-01] MEDS: DULoxetine HCL 60 MG CAPSULE.DR PO ×2 (08:12→17:05)
[2023-01-01] MEDS: LIDOCAINE 5% PATCH 1 PATCH TRANSDERM (08:12)
[2023-01-01] MEDS: SENNA/DOCUSATE SODIUM TABLET 1 TAB PO ×2 (08:12→17:05)
[2023-01-01] MEDS: lisinopriL 20 MG TABLET 40 MG PO (08:12)
[2023-01-01] MEDS: FERROUS SULFATE 324 MG TABLET PO (08:12)
[2023-01-01] MEDS: GABAPENTIN 100 MG CAPSULE 200 MG PO ×3 (08:12→17:05)
[2023-01-01] MEDS: CYANOCOBALAMIN 1,000 MCG TABLET 1000 MCG PO (08:12)
[2023-01-01] MEDS: DORZOLAMIDE/TIMOLOL OPHTH SOL 10 ML BOTTLE 1 DROP EACH EYE ×2 (08:12→17:05)
[2023-01-01] MEDS: polyethylene glycoL 3350 17 GM POWD.PACK PO ×3 (08:13→17:06)
[2023-01-01] MEDS: PANTOPRAZOLE SODIUM IV 40 MG VIAL IV PUSH ×2 (08:13→21:02)
[2023-01-01 08:54] LABS: Anion Gap 4 mmol/L (8-16); Blood Urea Nitrogen 32 mg/dL (9-20); Calcium 8.7 mg/dL (8.4-10.2); Carbon Dioxide 28 mmol/L (22-30); Chloride 101 mmol/L (98-107); Estimated CRCL calculation 48 ml/min; Estimated Glomerular Filt Rate 35; Glucose 179 mg/dL (65-110); Potassium 4.6 mmol/L (3.4-5.0); Sodium 133 mmol/L (137-145)
--- NOTE | 2023-01-01 11:24 | P.PNIM_ITS ---
Progress Note: A&P Assessment and Plan (1) Back pain: Qualifiers: Back pain laterality: midline Back pain location: low back pain Chronicity: acute Sciatica laterality: bilateral sciatica Sciatica presence: with sciatica Qualified Code(s): M54.42 - Lumbago with sciatica, left side; M54.41 - Lumbago with sciatica, right side Code(s): M54.9 - Dorsalgia, unspecified Status: Acute Assessment and Plan: Presenting with bilateral lower extremity weakness, uncontrolled pain in the setting of recent laminectomy on December 22, 2022. * Continue pain management with norco, add morphine for breakthrough pain, and oxycodone for pain 7-10 * Flexeril t.i.d. scheduled. * Defer further management to Neurosurgery * Neurosurgery consulted * CT of the spine shows moderate spondylolysis, Osteonecrosis of the left femoral head --not new discovery * Add gabapentin for increased neuropathy as well * Awaiting SNF approval for discharge (2) Ambulatory dysfunction: Code(s): R26.2 - Difficulty in walking, not elsewhere classified Status: Acute Assessment and Plan: * PT and OT evaluation * Given recent spinal Sx, defer to neurosurgery. * Could be related to the osteonecrosis of the bilateral femoral head, Severe lower extremity edema (3) Anemia: Qualifiers: Anemia type: unspecified type Qualified Code(s): D64.9 - Anemia, unspecified Code(s): D64.9 - Anemia, unspecified Status: Chronic Assessment and Plan: * Anemia labs iron 22, TIBC 227, % sat 10, Transferrin 122, Ferritin 139, B12 >1000, Folate 7.0 * Supplement as indicated * Continue Iron from home * transfuse iron 500mg IV once * Iron deficiency anemia noted * Trend H/H * transfuse as indicated with a Hgb <7.0 (4) Chronic kidney disease (CKD): Qualifiers: Chronic kidney disease stage: stage 3 (moderate) Chronic kidney disease stage 3 subtype: stage 3b (GFR 30-44) Qualified Code(s): N18.32 - Chronic kidney disease, stage 3b Code(s): N18.9 - Chronic kidney disease, unspecified Status: Chronic Assessment and Plan: * 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 * Low fat diet * Life style changes * Courtesy Booth Cashier consult closer to discharge (7) Type 2 diabetes mellitus without complication, without long-term current use of insulin: Code(s): E11.9 - Type 2 diabetes mellitus without complications Status: Chronic Assessment and Plan: * Resume home regimen metformin a 1000 mg b.i.d. was reduced to 500 mg b.i.d. due to kidney function. * Monitor Accu-Cheks. t.i.d. with meals sliding scale * Accu Cheks AC/HS * trend glucose * Adjust therapy as indicated
[2023-01-01 12:00] LABS: Glucose Point of Care 306 mg/dl (65-105)
[2023-01-01] MEDS: INSULIN ASPART (*BKC) 100 UNITS/ML SUB-Q (12:14)
[2023-01-01 13:45] VITALS: BP 142/58; PULSE 80; RESP 20; TEMP 36.6; O2SAT 100
[2023-01-01 17:00] LABS: Glucose Point of Care 115 mg/dl (65-105)
[2023-01-01] MEDS: HYDROcodone/acetaminophen (*CRX) 5-325 MG TABLET 1 TAB PO (18:10)
[2023-01-01 19:46] VITALS: BP 135/62; PULSE 81; RESP 20; TEMP 36.4; O2SAT 100
[2023-01-01] MEDS: AMITRIPTYLINE HCL 10 MG TABLET 20 MG PO (21:02)
[2023-01-01] MEDS: LATANOPROST 0.005% OP SOLN 2.5 ML BTL 1 DROP EACH EYE (21:02)
[2023-01-01 21:03] LABS: Glucose Point of Care 151 mg/dl (65-105)
[2023-01-02] MEDS: HYDROcodone/acetaminophen (*CRX) 5-325 MG TABLET 1 TAB PO ×2 (00:59→08:52)
[2023-01-02 04:33] VITALS: BP 162/81; PULSE 75; RESP 20; TEMP 36.6; O2SAT 97
[2023-01-02 05:11] LABS: Hematocrit 27.8 % (42.0-52.0); Hemoglobin 8.7 g/dL (14.0-18.0); Mean Corpuscular HGB Conc 31.3 g/dl (32-36); Mean Corpuscular Hemoglobin 28.3 pg (26-34); Mean Corpuscular Volume 90.6 fl (80-100); Mean Platelet Volume 9.1 fl (7.4-10.4); Platelet Count Result 498 k/mm3 (150-375); Red Blood Count 3.07 M/mm3 (4.6-6.20); Red Cell Distribution Width 13.2 % (11.5-14.5); White Blood Count 12.7 K/mm3 (4.5-10.0)
[2023-01-02 05:33] LABS: Anion Gap 6 mmol/L (8-16); Blood Urea Nitrogen 29 mg/dL (9-20); Calcium 8.7 mg/dL (8.4-10.2); Carbon Dioxide 27 mmol/L (22-30); Chloride 102 mmol/L (98-107); Estimated CRCL calculation 46 ml/min; Estimated Glomerular Filt Rate 33; Glucose 169 mg/dL (65-110); Potassium 4.8 mmol/L (3.4-5.0); Sodium 135 mmol/L (137-145)
[2023-01-02] MEDS: CYCLOBENZAPRINE HCL 10 MG TABLET PO ×2 (06:09→14:54)
[2023-01-02 08:12] LABS: Glucose Point of Care 161 mg/dl (65-105)
[2023-01-02] MEDS: FERROUS SULFATE 324 MG TABLET PO (08:46)
[2023-01-02] MEDS: polyethylene glycoL 3350 17 GM POWD.PACK PO ×3 (08:46→17:25)
[2023-01-02] MEDS: CHOLECALCIFEROL 1,000 UNITS TABLET 2000 UNITS PO (08:46)
[2023-01-02] MEDS: ATORVASTATIN 20 MG TABLET PO (08:47)
[2023-01-02] MEDS: SENNA/DOCUSATE SODIUM TABLET 1 TAB PO ×2 (08:47→17:26)
[2023-01-02] MEDS: DORZOLAMIDE/TIMOLOL OPHTH SOL 10 ML BOTTLE 1 DROP EACH EYE ×2 (08:47→17:26)
[2023-01-02] MEDS: CYANOCOBALAMIN 1,000 MCG TABLET 1000 MCG PO (08:47)
[2023-01-02] MEDS: GABAPENTIN 100 MG CAPSULE 200 MG PO ×3 (08:47→17:26)
[2023-01-02] MEDS: PANTOPRAZOLE SODIUM IV 40 MG VIAL IV PUSH ×2 (08:47→20:31)
[2023-01-02] MEDS: lisinopriL 20 MG TABLET 40 MG PO (08:47)
[2023-01-02] MEDS: LIDOCAINE 5% PATCH 1 PATCH TRANSDERM (08:51)
[2023-01-02] MEDS: metFORMIN HCL 500 MG TABLET PO (08:53)
[2023-01-02] MEDS: DULoxetine HCL 60 MG CAPSULE.DR PO ×2 (08:53→17:26)
[2023-01-02 09:52] VITALS: TEMP 36.6
[2023-01-02 12:18] LABS: Glucose Point of Care 171 mg/dl (65-105)
[2023-01-02 14:06] VITALS: BP 136/69; PULSE 73; RESP 20; TEMP 36.5; O2SAT 96
[2023-01-02 16:53] LABS: Glucose Point of Care 127 mg/dl (65-105)
[2023-01-02 20:05] VITALS: BP 135/54; PULSE 75; RESP 20; TEMP 36.4; O2SAT 99
[2023-01-02] MEDS: AMITRIPTYLINE HCL 10 MG TABLET 20 MG PO (20:31)
[2023-01-02] MEDS: LATANOPROST 0.005% OP SOLN 2.5 ML BTL 1 DROP EACH EYE (20:31)
[2023-01-02 20:58] LABS: Glucose Point of Care 222 mg/dl (65-105)
[2023-01-03 05:29] VITALS: BP 141/76; PULSE 74; RESP 20; TEMP 36.3; O2SAT 100
[2023-01-03 05:42] LABS: Hematocrit 27.1 % (42.0-52.0); Hemoglobin 8.2 g/dL (14.0-18.0); Mean Corpuscular HGB Conc 30.3 g/dl (32-36); Mean Corpuscular Hemoglobin 27.4 pg (26-34); Mean Corpuscular Volume 90.6 fl (80-100); Mean Platelet Volume 9.2 fl (7.4-10.4); Platelet Count Result 478 k/mm3 (150-375); Red Blood Count 2.99 M/mm3 (4.6-6.20); Red Cell Distribution Width 13.3 % (11.5-14.5); White Blood Count 11.7 K/mm3 (4.5-10.0)
[2023-01-03 05:57] LABS: Anion Gap 5 mmol/L (8-16); Blood Urea Nitrogen 32 mg/dL (9-20); Calcium 8.6 mg/dL (8.4-10.2); Carbon Dioxide 28 mmol/L (22-30); Chloride 102 mmol/L (98-107); Estimated CRCL calculation 44 ml/min; Estimated Glomerular Filt Rate 31; Glucose 157 mg/dL (65-110); Potassium 5.2 mmol/L (3.4-5.0); Sodium 135 mmol/L (137-145)
[2023-01-03] MEDS: CYCLOBENZAPRINE HCL 10 MG TABLET PO ×2 (06:10→12:54)
[2023-01-03 07:46] LABS: Glucose Point of Care 125 mg/dl (65-105)
[2023-01-03] MEDS: FUROSEMIDE INJ 40 MG/4 ML VIAL IV PUSH (08:51)
[2023-01-03] MEDS: polyethylene glycoL 3350 17 GM POWD.PACK PO ×2 (08:51→12:54)
[2023-01-03] MEDS: DORZOLAMIDE/TIMOLOL OPHTH SOL 10 ML BOTTLE 1 DROP EACH EYE (08:52)
[2023-01-03] MEDS: FERROUS SULFATE 324 MG TABLET PO (08:52)
[2023-01-03] MEDS: PANTOPRAZOLE SODIUM IV 40 MG VIAL IV PUSH (08:52)
[2023-01-03] MEDS: HYDROcodone/acetaminophen (*CRX) 5-325 MG TABLET 1 TAB PO (08:52)
[2023-01-03] MEDS: CHOLECALCIFEROL 1,000 UNITS TABLET 2000 UNITS PO (08:52)
[2023-01-03] MEDS: lisinopriL 20 MG TABLET 40 MG PO (08:53)
[2023-01-03] MEDS: CYANOCOBALAMIN 1,000 MCG TABLET 1000 MCG PO (08:53)
[2023-01-03] MEDS: metFORMIN HCL 500 MG TABLET PO (08:53)
[2023-01-03] MEDS: DULoxetine HCL 60 MG CAPSULE.DR PO (08:53)
[2023-01-03] MEDS: GABAPENTIN 100 MG CAPSULE 200 MG PO ×2 (08:53→12:54)
[2023-01-03] MEDS: ATORVASTATIN 20 MG TABLET PO (08:53)
[2023-01-03] MEDS: LIDOCAINE 5% PATCH 1 PATCH TRANSDERM (08:53)
[2023-01-03] MEDS: SENNA/DOCUSATE SODIUM TABLET 1 TAB PO (08:53)
[2023-01-03 09:03] VITALS: BP 157/81; PULSE 85; RESP 14; O2SAT 100
[2023-01-03 11:49] LABS: Glucose Point of Care 176 mg/dl (65-105)
--- NOTE | 2023-01-03 12:09 | P.DS_ITS ---
DS: Admitting Diagnosis Discharge Date 01/03/23 Admitting Diagnosis Bilateral lower extremity weakness DS: Discharge Diagnosis Discharge Diagnosis (1) Back pain: Qualifiers: Back pain laterality: midline Back pain location: low back pain Chronicity: acute Sciatica laterality: bilateral sciatica Sciatica presence: with sciatica Qualified Code(s): M54.42 - Lumbago with sciatica, left side; M54.41 - Lumbago with sciatica, right side Code(s): M54.9 - Dorsalgia, unspecified Status: Acute Assessment and Plan: Presenting with bilateral lower extremity weakness, uncontrolled pain in the setting of recent laminectomy on December 22, 2022. * Continue pain management with norco, add morphine for breakthrough pain, and oxycodone for pain 7-10 * Flexeril t.i.d. scheduled. * Defer further management to Neurosurgery * Neurosurgery consulted * CT of the spine shows moderate spondylolysis, Osteonecrosis of the left femoral head --not new discovery * Add gabapentin for increased neuropathy as well * Insurance denied rehab. Patient will be sent home with home health. (2) Ambulatory dysfunction: Code(s): R26.2 - Difficulty in walking, not elsewhere classified Status: Acute Assessment and Plan: * PT and OT evaluation * Given recent spinal Sx, defer to neurosurgery. * Could be related to the osteonecrosis of the bilateral femoral head, Severe lower extremity edema (3) Anemia: Qualifiers: Anemia type: unspecified type Qualified Code(s): D64.9 - Anemia, unspecified Code(s): D64.9 - Anemia, unspecified Status: Chronic Assessment and Plan: * Anemia labs iron 22, TIBC 227, % sat 10, Transferrin 122, Ferritin 139, B12 >1000, Folate 7.0 * Supplement as indicated * Continue Iron from home * transfuse iron 500mg IV once * Iron deficiency anemia noted * Trend H/H * transfuse as indicated with a Hgb <7.0 (4) Chronic kidney disease (CKD): Qualifiers: Chronic kidney disease stage: stage 3 (moderate) Chronic kidney disease stage 3 subtype: stage 3b (GFR 30-44) Qualified Code(s): N18.32 - Chronic kidney disease, stage 3b Code(s): N18.9 - Chronic kidney disease, unspecified Status: Chronic Assessment and Plan: * 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 * Low fat diet * Life style changes * Community Recreation Programmer consult closer to discharge (7) Type 2 diabetes mellitus without complication, without long-term current use of insulin: Code(s): E11.9 - Type 2 diabetes mellitus without complications Status: Chronic Assessment and Plan: * Resume home regimen metformin a 1000 mg b.i.d. was reduced to 500 mg b.i.d.
--- NOTE | 2023-01-03 12:09 | PM.DS ---
DS: Admitting Diagnosis Discharge Date 01/03/23 Admitting Diagnosis Bilateral lower extremity weakness DS: Discharge Diagnosis Discharge Diagnosis (1) Back pain: Qualifiers: Back pain laterality: midline Back pain location: low back pain Chronicity: acute Sciatica laterality: bilateral sciatica Sciatica presence: with sciatica Qualified Code(s): M54.42 - Lumbago with sciatica, left side; M54.41 - Lumbago with sciatica, right side Code(s): M54.9 - Dorsalgia, unspecified Status: Acute Assessment and Plan: Presenting with bilateral lower extremity weakness, uncontrolled pain in the setting of recent laminectomy on December 22, 2022. Continue pain management with norco, add morphine for breakthrough pain, and oxycodone for pain 7-10 Flexeril t.i.d. scheduled. Defer further management to Neurosurgery Neurosurgery consulted CT of the spine shows moderate spondylolysis, Osteonecrosis of the left femoral head --not new discovery Add gabapentin for increased neuropathy as well Insurance denied rehab. Patient will be sent home with home health. (2) Ambulatory dysfunction: Code(s): R26.2 - Difficulty in walking, not elsewhere classified Status: Acute Assessment and Plan: PT and OT evaluation Given recent spinal Sx, defer to neurosurgery. Could be related to the osteonecrosis of the bilateral femoral head, Severe lower extremity edema (3) Anemia: Qualifiers: Anemia type: unspecified type Qualified Code(s): D64.9 - Anemia, unspecified Code(s): D64.9 - Anemia, unspecified Status: Chronic Assessment and Plan: Anemia labs iron 22, TIBC 227, % sat 10, Transferrin 122, Ferritin 139, B12 >1000, Folate 7.0 Supplement as indicated Continue Iron from home transfuse iron 500mg IV once Iron deficiency anemia noted Trend H/H transfuse as indicated with a Hgb <7.0 (4) Chronic kidney disease (CKD): Qualifiers: Chronic kidney disease stage: stage 3 (moderate) Chronic kidney disease stage 3 subtype: stage 3b (GFR 30-44) Qualified Code(s): N18.32 - Chronic kidney disease, stage 3b Code(s): N18.9 - Chronic kidney disease, unspecified Status: Chronic Assessment and Plan: 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 Low fat diet Life style changes Global Account Director consult closer to discharge (7) Type 2 diabetes mellitus without complication, without long-term current use of insulin: Code(s): E11.9 - Type 2 diabetes mellitus without complications Status: Chronic Assessment and Plan: Resume home regimen metformin a 1000 mg b.i.d. was reduced to 500 mg b.i.d. due to kidney function. Monitor Accu-Cheks. t.i.d. with meals sliding scale Accu Cheks AC/HS trend glucose Adjust therapy as indicated (8) Acute kidney failure: Qualifiers: Acute renal failure type: unspecified Qualified Code(s): N17.9 - Acute kidney failure, unspecified Code(s): N17.9 - Acute kidney failure, unspecified Status: Acute Assessment and Plan: Could be related to fluid overload, or progressive disease 4+ pitting edema noted to the bilateral lower extremities which is improved to +1 pitting cameron
== END 2023-01-03 13:35 | disposition home health service (06) ==
LOC: ANHED 20:27 → ANH2MED 21:06
PROVIDERS: Nurse Practitioner; Admitting Provider Internal Medicine; Emergency Provider Physician Assistant; PCP Family Medicine; Visit Provider Internal Medicine Critical Care Medicine
DX: G89.18 Other acute postprocedural pain (principal); M54.42 Lumbago with sciatica, left side; M54.41 Lumbago with sciatica, right side; M79.662 Pain in left lower leg; Z98.1 Arthrodesis status; M79.661 Pain in right lower leg; R60.0 Localized edema; R26.2 Difficulty in walking, not elsewhere classified; R00.0 Tachycardia, unspecified; F32.A Depression, unspecified; E11.22 Type 2 diabetes mellitus with diabetic chronic kidney disease; I12.9 Hypertensive chronic kidney disease with stage 1 through stage 4 chronic kidney disease, or unspecified chronic kidney disease; D63.1 Anemia in chronic kidney disease; N18.32 Chronic kidney disease, stage 3b; N17.9 Acute kidney failure, unspecified; N25.81 Secondary hyperparathyroidism of renal origin; R07.9 Chest pain, unspecified; K21.9 Gastro-esophageal reflux disease without esophagitis; E11.40 Type 2 diabetes mellitus with diabetic neuropathy, unspecified; M47.816 Spondylosis without myelopathy or radiculopathy, lumbar region; M41.86 Other forms of scoliosis, lumbar region; M87.9 Osteonecrosis, unspecified; I35.8 Other nonrheumatic aortic valve disorders; K59.00 Constipation, unspecified; D50.9 Iron deficiency anemia, unspecified; D51.9 Vitamin B12 deficiency anemia, unspecified; D72.829 Elevated white blood cell count, unspecified; E55.9 Vitamin D deficiency, unspecified; E78.5 Hyperlipidemia, unspecified; E66.9 Obesity, unspecified; Z68.39 Body mass index [BMI] 39.0-39.9, adult; Z86.16 Personal history of COVID-19; Z79.84 Long term (current) use of oral hypoglycemic drugs; Z79.899 Other long term (current) drug therapy
CPT/HCPCS: 36415; 71045; 72131; 74018; 80048; 80053; 81001; 82607; 82728; 82746; 82948; 83036; 83540; 83550; 83735; 83880; 84466; 85025; 85027; 85610; 85730; 86850; 86900; 86901; 93970; 96372; 96374; 96375; 96376; 97110; 97116; 97161; 97165; 97166; 97530; 97535; 99199; 99285; A9270; C1713; C8929; C9113; G0378; J0330; J0690; J1100; J1170; J1756; J1815; J1940; J2405; J2704; J2930; J3010; J3360; J3480; J7040; J7050; J7120; Q9957

== ENCOUNTER 2023-01-08 23:50 | Emergency (ER) | payer MEDICARE, SELFPAY ==
[2023-01-08 23:49] VITALS: BP 157/87; PULSE 81; RESP 16; TEMP 36.4; O2SAT 94
[2023-01-09 00:48] LABS: Basophils Absolute Auto 0.1 K/mm3 (0.0-0.1); Basophils Percent Auto 0.5 % (0.2-1.2); Eosinophils Absolute Auto 0.2 K/mm3 (0-0.3); Eosinophils Percent Auto 1.8 % (0-4.4); Hematocrit 28.7 % (42.0-52.0); Hemoglobin 9.2 g/dL (14.0-18.0); Immature Granulocyte Absolute 0.04 K/mm3 (0.00-0.031); Immature Granulocyte Percent A 0.3 % (0-0.5); Lymphocytes Absolute Auto 3.26 K/mm3 (0.9-3.2); Lymphocytes Percent Auto 26.8 % (18.3-44.2); Mean Corpuscular HGB Conc 32.1 g/dl (32-36); Mean Corpuscular Hemoglobin 28.2 pg (26-34); Mean Platelet Volume 9.1 fl (7.4-10.4); Monocytes Absolute Auto 0.6 K/mm3 (0.1-0.6); Neutrophils Percent Auto 65.6 % (45.5-73.1); Platelet Count Result 456 k/mm3 (150-375); Red Blood Count 3.26 M/mm3 (4.6-6.20); Red Cell Distribution Width 13.4 % (11.5-14.5); White Blood Count 12.2 K/mm3 (4.5-10.0)
[2023-01-09] MEDS: HYDROcodone/acetaminophen (*CRX) 5-325 MG TABLET 1 TAB PO (00:52)
[2023-01-09 01:00] LABS: Anion Gap 11 mmol/L (8-16); Blood Urea Nitrogen 25 mg/dL (9-20); Calcium 8.9 mg/dL (8.4-10.2); Carbon Dioxide 19 mmol/L (22-30); Chloride 106 mmol/L (98-107); Estimated CRCL calculation 45 ml/min; Estimated Glomerular Filt Rate 33; Glucose 130 mg/dL (65-110); Potassium 4.4 mmol/L (3.4-5.0); Sodium 136 mmol/L (137-145)
[2023-01-09 01:12] LABS: Troponin I 0.016 ng/mL (0.000-0.034)
[2023-01-09 01:18] LABS: D Dimer 1.96 ug/mL (<0.48)
--- NOTE | 2023-01-09 01:33 | ED.BACK ---
HPI - Back Pain/Injury General Chief Complaint: Back Pain/Injury Stated Complaint: leg/back pain Time Seen by Provider: 01/09/23 00:15 Source: patient and family Mode of arrival: EMS Limitations: no limitations History of Present Illness HPI Narrative: This is a 67-year-old male that presents to the emergency department for left leg pain present over the last couple of days. Associated with swelling. Patient recently had lumbar spine surgery and was admitted to the hospital. No new injuries or trauma. Patient reports he does not have any pain medication at home to take. Denies fever, saddle anesthesia, or bowel/bladder incontinence. Related Data Home Medications Medication Instructions Recorded Confirmed dapagliflozin propanediol 10 mg 5 mg PO 3XW 04/26/22 12/25/22 tablet (Farxiga) ferrous sulfate 324 mg (65 mg 324 mg PO DAILY 04/26/22 12/25/22 iron) tablet,delayed release latanoprost 0.005 % eye drops 1 drp ophthalmic (eye) HS 04/26/22 12/25/22 dorzolamide 22.3 mg-timolol 6.8 1 drp EACH EYE BID 09/15/22 12/25/22 mg/mL eye drops cholecalciferol (vitamin D3) 50 2,000 unit PO DAILY 11/24/22 12/25/22 mcg (2,000 unit) tablet cyanocobalamin (vitamin B-12) 1,000 mcg PO DAILY 11/24/22 12/25/22 1,000 mcg tablet atorvastatin 20 mg tablet 20 mg PO QAM 12/22/22 12/25/22 Allergies Allergy/AdvReac Type Severity Reaction Status Date / Time chlorhexidine AdvReac Severe Itching Verified 12/15/22 13:18 Review of Systems Review of Systems: CONSTITUTIONAL: Denies fever CARDIOVASCULAR: Reports edema. Denies chest pain RESPIRATORY: Denies dyspnea. SKIN: Denies rash MUSCULOSKELETAL: Reports back pain, joint pain, and myalgia. NEUROLOGIC: Denies numbness, or weakness. All systems reviewed & are unremarkable except as noted in HPI and below PMFSH Past Medical History Medical History Abscess of skin or subcutaneous tissue (~01/29/22) Left buttocks midline Actinic keratosis Acute pharyngitis Acute sinusitis Anemia (11/03/21) hemoglobin 11.4 on 11/03/2021. hemoglobin 12.0 with iron 43, 60% saturation and ferritin 32 but 12/13/2021. At high risk for falls (~11/24/22) BMI 38.0-38.9,adult BMI 39.0-39.9,adult Body mass index (BMI) 40.0-44.9, adult (03/04/19) Cholecystectomy planned Chronic depression Chronic kidney disease (CKD) stage G3a/A1, moderately decreased glomerular filtration rate (GFR) between 45-59 mL/min/1.73 square meter and albuminuria creatinine ratio less than 30 mg/g Chronic kidney disease (CKD) stage G3b/A1, moderately decreased glomerular filtration rate (GFR) between 30-44 mL/min/1.73 square meter and albuminuria creatinine ratio less than 30 mg/g BUN 20 day with creatinine 1.93 with GFR 35, decreased from 39 on 12/13/2021. BUN 33, creatinine 1.88 with GFR 38 on 04/05/2022. Chronic left shoulder pain resolved with total reverse shoulder surgery 05/10/2022. COVID-19 (~12/2021) fully vaccinated and moderate symptoms Cyanosis bilateral feet . Arterial Doppler study of the lower extremities 11/24/2021 was normal. Diabetes Diabetic neuropathy Duodenal ulcer disease (03/17/22) EGD with duodenal ulcers 03/17/2022. No ulcerations on EGD 05/05/2022. Edema of both lower legs due to peripheral venous insufficiency Encounter for hepatitis C screening test for low risk patient Screening was negative on 11/14/2022. Encounter for prostate cancer screening PSA 0.4 on 11/14/2022. FHx: cholecystectomy Gastritis (03/17/22) EGD on 03/17/2022 with gastritis and ulcerations . EGD on 05/05/2022 with nonerosive reflux with no gastritis or ulcerations. GERD with esophagitis (03/17/22) esophagitis on EGD 03/17/2022. Nonerosive reflux disease on EGD 05/05/2022. Hypercholesterolemia Hypertension Insomnia Iron deficiency anemia, unspecified (12/13/21) are low at 43 with 16% saturation and ferritin 32 with hemoglobin 12.0 on 12/13/2021. iron 59 with 22% saturatio
[2023-01-09 01:42] LABS: INR 0.9; Partial Thromboplastin Time 24.2 SECONDS (22.3-36.8); Prothrombin Time 12.9 Seconds (11.1-14.7)
[2023-01-09] MEDS: ENOXAPARIN 100 MG/ML SYRINGE SUB-Q (02:01)
[2023-01-09] MEDS: ENOXAPARIN 30 MG/0.3 ML SYRINGE SUB-Q (02:01)
[2023-01-09 02:05] VITALS: BP 115/67; PULSE 83; RESP 16; TEMP 36.6; O2SAT 100
== END 2023-01-09 02:10 | disposition home or self-care (01) ==
PROVIDERS: Emergency Provider Physician Assistant; PCP Family Medicine
DX: M79.605 Pain in left leg (principal); E11.22 Type 2 diabetes mellitus with diabetic chronic kidney disease; I12.9 Hypertensive chronic kidney disease with stage 1 through stage 4 chronic kidney disease, or unspecified chronic kidney disease; N18.30 Chronic kidney disease, stage 3 unspecified; E11.40 Type 2 diabetes mellitus with diabetic neuropathy, unspecified; E78.00 Pure hypercholesterolemia, unspecified; I87.2 Venous insufficiency (chronic) (peripheral); K21.00 Gastro-esophageal reflux disease with esophagitis, without bleeding; D50.9 Iron deficiency anemia, unspecified; D51.9 Vitamin B12 deficiency anemia, unspecified; E55.9 Vitamin D deficiency, unspecified; E66.01 Morbid (severe) obesity due to excess calories; Z68.41 Body mass index [BMI] 40.0-44.9, adult; Z86.16 Personal history of COVID-19; Z79.84 Long term (current) use of oral hypoglycemic drugs
CPT/HCPCS: 36415; 80048; 84484; 85025; 85380; 85610; 85730; 93971; 96372; 99284; A9270; J1650

== ENCOUNTER 2023-01-09 07:08 | Outpatient (CLI) | payer MEDICARE, SELFPAY ==
--- NOTE | ~2023-01-09 | US_ITS ---
EXAMINATION: US venous doppler [facility] DATE: 01/09/2023 08:12 INDICATION: Left lower limb pain and swelling. TECHNIQUE: Grayscale ultrasound images without and with compression and Doppler ultrasound images of the left lower extremity veins were obtained. COMPARISON: Ultrasound 12/26/2022 FINDINGS: The visualized portions of left common femoral vein, profunda (deep) femoral vein, femoral vein, popl iteal vein, peroneal veins, posterior tibial veins, and greater saphenous vein outflow are patent. IMPRESSION: 1. No deep venous thrombosis. Reviewed, dictated and finalized at location A.
== END 2023-01-09 07:09 | disposition home or self-care (01) ==
PROVIDERS: PCP Family Medicine; Referring Provider Physician Assistant; Visit Provider Family Medicine
DX: M79.662 Pain in left lower leg (principal)
CPT/HCPCS: 93971

== ENCOUNTER 2023-01-16 11:40 | Outpatient (CLI) | payer MEDICARE, SELFPAY ==
[2023-01-16 12:23] LABS: Creatinine Urine 163.7 mg/dL; Total Protein Urine Random 186 mg/dL; Ur Ttl Prot Creatinine Ratio 1.14 mg/mg (0-0.20)
[2023-01-16 12:24] LABS: Anion Gap 13 mmol/L (8-16); Blood Urea Nitrogen 25 mg/dL (9-20); Calcium 9.4 mg/dL (8.4-10.2); Carbon Dioxide 17 mmol/L (22-30); Chloride 106 mmol/L (98-107); Estimated Glomerular Filt Rate 43; Glucose 131 mg/dL (65-110); Phosphorus 3.8 mg/dL (2.5-4.5); Potassium 4.8 mmol/L (3.4-5.0); Sodium 136 mmol/L (137-145)
== END 2023-01-16 11:41 | disposition home or self-care (01) ==
PROVIDERS: PCP Family Medicine; Visit Provider Internal Medicine Nephrology
DX: I12.9 Hypertensive chronic kidney disease with stage 1 through stage 4 chronic kidney disease, or unspecified chronic kidney disease (principal); N18.31 Chronic kidney disease, stage 3a
CPT/HCPCS: 36415; 80069; 82570; 84156

== ENCOUNTER 2023-04-19 11:10 | Outpatient (CLI) | payer MEDICARE, SELFPAY ==
[2023-04-19 12:09] LABS: Basophils Absolute Auto 0.1 K/mm3 (0.0-0.1); Basophils Percent Auto 0.7 % (0.2-1.2); Eosinophils Absolute Auto 0.3 K/mm3 (0-0.3); Eosinophils Percent Auto 3.2 % (0-4.4); Hematocrit 37.8 % (42.0-52.0); Hemoglobin 11.8 g/dL (14.0-18.0); Immature Granulocyte Absolute 0.05 K/mm3 (0.00-0.031); Immature Granulocyte Percent A 0.5 % (0-0.5); Immature Platelet Fraction Pct 5.5 % (0.9-11.2); Lymphocytes Percent Auto 34.7 % (18.3-44.2); Mean Corpuscular HGB Conc 31.2 g/dl (32-36); Mean Corpuscular Hemoglobin 27.3 pg (26-34); Mean Corpuscular Volume 87.3 fl (80-100); Monocytes Absolute Auto 0.5 K/mm3 (0.1-0.6); Neutrophils Percent Auto 55.9 % (45.5-73.1); Platelet Count Result 268 k/mm3 (150-375); Red Blood Count 4.33 M/mm3 (4.6-6.20); Red Cell Distribution Width 14.1 % (11.5-14.5); White Blood Count 10.7 K/mm3 (4.5-10.0)
[2023-04-19 12:23] LABS: Alanine Aminotransferase 14 U/L (6-50); Alkaline Phosphatase 87 U/L (38-126); Anion Gap 6 mmol/L (8-16); Aspartate Amino Transferase 19 U/L (17-59); Bilirubin,Total 0.4 mg/dL (0.2-1.3); Blood Urea Nitrogen 27 mg/dL (9-20); Calcium 8.9 mg/dL (8.4-10.2); Carbon Dioxide 26 mmol/L (22-30); Chloride 105 mmol/L (98-107); Cholesterol 191 mg/dL (0-200); Estimated Glomerular Filt Rate 37; Glucose 130 mg/dL (65-110); HDL Direct 43 mg/dL; Potassium 4.3 mmol/L (3.4-5.0); Sodium 137 mmol/L (137-145); Triglycerides 206 mg/dL (<150)
[2023-04-19 12:26] LABS: Iron 63 ug/dL (49-181)
[2023-04-19 12:34] LABS: LDL Cholesterol Direct 95 mg/dL
[2023-04-19 12:35] LABS: Percent Iron Saturation 22 % (20-50)
[2023-04-19 13:11] LABS: Hemoglobin A1C 6.8 % (<5.7)
== END 2023-04-19 11:11 | disposition home or self-care (01) ==
PROVIDERS: PCP Family Medicine; Visit Provider Family Medicine
DX: D50.9 Iron deficiency anemia, unspecified (principal); E78.2 Mixed hyperlipidemia; E11.9 Type 2 diabetes mellitus without complications
CPT/HCPCS: 36415; 80048; 80061; 80076; 82728; 83036; 83540; 83550; 84443; 85025; 85055

== ENCOUNTER 2023-05-08 11:33 | Outpatient (CLI) | payer MEDICARE, SELFPAY ==
--- NOTE | ~2023-05-08 | XR_ITS ---
Lumbosacral Spine: AP and lateral views Clinical History: Postoperative COMPARISON: 01/31/2022 Findings: The normal lordotic curve is maintained. There is posterior fusion hardware extending from L1 through L5, with bilateral rods and transpedicular screws present. There are interbody fusion ad ce is at the L2-L3, L3-L4, L4-L5 disc spaces. The L4-L5 level interbody fusion device appears somewha t posteriorly placed, and appears to partially protrude beyond the posterior margin of the vertebral bodies. There is moderate to advanced degenerative disc narrowing L1-L2. There is chronic anterior we dging deformity of T12. The sacroiliac joints are normally outlined. Impression: Extensive posterior and interbody fusion of the lumbar spine, as detailed above. L4-L5 interbody fusi on device appears to protrude posterior to the posterior margin of the vertebral bodies. Chronic wedging deformity of T12. Reviewed, dictated and finalized at location . RONMENTAL SOLUTIONS ENGINEER Impression: Extensive posterior and interbody fusion of the lumbar spine, as detailed above . L4-L5 interbody fusion device appears to protrude posterior to the posterior margin of the vertebral bodies. Chronic wedging deformity of T12.
== END 2023-05-08 11:34 | disposition home or self-care (01) ==
PROVIDERS: PCP Family Medicine; Visit Provider Physician Assistant
DX: Z98.1 Arthrodesis status (principal); M48.54XA Collapsed vertebra, not elsewhere classified, thoracic region, initial encounter for fracture
CPT/HCPCS: 72100

== ENCOUNTER 2023-07-24 10:10 | Outpatient (CLI) | payer MEDICARE, SELFPAY ==
[2023-07-24 10:50] LABS: Anion Gap 11 mmol/L (8-16); Blood Urea Nitrogen 33 mg/dL (9-20); Calcium 9.1 mg/dL (8.4-10.2); Carbon Dioxide 23 mmol/L (22-30); Chloride 105 mmol/L (98-107); Estimated Glomerular Filt Rate 43; Glucose 201 mg/dL (65-110); Phosphorus 3.4 mg/dL (2.5-4.5); Potassium 4.4 mmol/L (3.4-5.0); Sodium 139 mmol/L (137-145)
[2023-07-24 10:51] LABS: Creatinine Urine 90.6 mg/dL; Total Protein Urine Random 131 mg/dL; Ur Ttl Prot Creatinine Ratio 1.45 mg/mg (0-0.20)
[2023-07-24 11:01] LABS: Parathyroid Intact 74.2 pg/mL (7.5-53.5)
[2023-07-24 12:05] LABS: Vitamin D 25 Hydroxy 33.2 ng/mL
== END 2023-07-24 10:11 | disposition home or self-care (01) ==
PROVIDERS: PCP Family Medicine; Visit Provider Internal Medicine Nephrology
DX: N25.81 Secondary hyperparathyroidism of renal origin (principal); E55.9 Vitamin D deficiency, unspecified; I12.9 Hypertensive chronic kidney disease with stage 1 through stage 4 chronic kidney disease, or unspecified chronic kidney disease; N18.32 Chronic kidney disease, stage 3b
CPT/HCPCS: 36415; 80069; 82306; 82570; 83970; 84156

== ENCOUNTER 2023-08-29 10:28 | Outpatient (CLI) | payer MEDICARE, SELFPAY ==
--- NOTE | ~2023-08-29 | XR_ITS ---
EXAMINATION: XR lumbar spine 2-3V DATE: 08/29/2023 10:48 INDICATION: Arthrodesis status TECHNIQUE: Anteroposterior and lateral views of the lumbar spine, and cone-down lateral view of the l umbosacral junction were obtained. COMPARISON: 05/08/2023 FINDINGS: There are changes of posterior fusion and laminectomy from L1 through L5. Interbody devices are seen at L2-3, L3-4, and L4-5. The interbody device at L4-5 is again noted to extend beyond the p osterior margin of the vertebral bodies approximately 14 mm, unchanged. There is moderate loss of int ervertebral disc space height at L1-2 and L5-S1. There is an unchanged anterior wedge deformity of T1 2. There is no acute fracture. Surgical clips in the right upper quadrant are likely from prior brenton cystectomy. IMPRESSION: 1. Postsurgical changes of the lumbar spine as defined above with unchanged, persistent extension of the interbody device at L4-5 beyond the posterior margin of the vertebral bodies. 2. Moderate lumbar spondylosis. Reviewed, dictated and finalized at location L. ORK SPECIALIST IMPRESSION: 1. Postsurgical changes of the lumbar spine as defined above with unchanged, pe rsistent extension of the interbody device at L4-5 beyond the posterior margin of the vertebral bodies. 2. Moderate lumbar spondylosis.
== END 2023-08-29 10:29 | disposition home or self-care (01) ==
PROVIDERS: PCP Family Medicine; Visit Provider Physician Assistant
DX: M47.816 Spondylosis without myelopathy or radiculopathy, lumbar region (principal); Z98.1 Arthrodesis status
CPT/HCPCS: 72100

== ENCOUNTER 2023-11-17 10:47 | Outpatient (CLI) | payer MEDICARE, SELFPAY ==
[2023-11-17 11:36] LABS: Basophils Absolute Auto 0.1 K/mm3 (0.0-0.1); Basophils Percent Auto 0.5 % (0.2-1.2); Eosinophils Absolute Auto 0.2 K/mm3 (0-0.3); Eosinophils Percent Auto 1.9 % (0-4.4); Hemoglobin 12.3 g/dL (14.0-18.0); Immature Granulocyte Absolute 0.03 K/mm3 (0.00-0.031); Immature Granulocyte Percent A 0.3 % (0-0.5); Lymphocytes Absolute Auto 3.57 K/mm3 (0.9-3.2); Lymphocytes Percent Auto 30.2 % (18.3-44.2); Mean Corpuscular HGB Conc 32.4 g/dl (32-36); Mean Corpuscular Hemoglobin 28.1 pg (26-34); Mean Corpuscular Volume 86.8 fl (80-100); Mean Platelet Volume 9.9 fl (7.4-10.4); Monocytes Absolute Auto 0.7 K/mm3 (0.1-0.6); Monocytes Percent Auto 5.7 % (2.6-8.5); Neutrophils Absolute Auto 7.3 K/mm3 (1.3-6.7); Neutrophils Percent Auto 61.4 % (45.5-73.1); Platelet Count Result 321 k/mm3 (150-375); Red Blood Count 4.38 M/mm3 (4.6-6.20); Red Cell Distribution Width 13.6 % (11.5-14.5); White Blood Count 11.8 K/mm3 (4.5-10.0)
[2023-11-17 11:53] LABS: Alanine Aminotransferase 16 U/L (6-50); Albumin Level 4.3 g/dL (3.5-5.1); Alkaline Phosphatase 94 U/L (38-126); Anion Gap 12 mmol/L (4-12); Aspartate Amino Transferase 23 U/L (17-59); Bilirubin,Total 0.4 mg/dL (0.2-1.3); Blood Urea Nitrogen 34 mg/dL (9-20); Calcium 9.5 mg/dL (8.4-10.2); Carbon Dioxide 18 mmol/L (22-30); Chloride 108 mmol/L (98-107); Cholesterol 189 mg/dL (0-200); Estimated Glomerular Filt Rate 33; Glucose 136 mg/dL (65-110); HDL Direct 36 mg/dL; Potassium 4.6 mmol/L (3.4-5.0); Sodium 138 mmol/L (137-145); Triglycerides 320 mg/dL (<150)
[2023-11-17 11:54] LABS: Iron 80 ug/dL (49-181)
[2023-11-17 12:01] LABS: Hemoglobin A1C 7.4 % (<5.7)
[2023-11-17 12:03] LABS: LDL Cholesterol Direct 97 mg/dL
[2023-11-17 12:04] LABS: Percent Iron Saturation 28 % (20-50)
[2023-11-17 12:05] LABS: Appearance Urine Clear (Clear); Bacteria Urine None Seen /hpf; Bilirubin Urine Negative (Negative); Blood Urine Negative (Negative); Color Urine Yellow (Yellow); Glucose Urine UA 2+ mg/dL (Negative); Ketones Urine Negative (Negative); Leukocyte Esterase Ur Negative LEU/UL (Negative); Nitrate Urine Negative (Negative); Non Pathogenic Casts 0-2; Protein Urine 1+ mg/dL (Negative); RBC Urine 0-2 /hpf (0-2); Specific Grav Ur 1.016 (1.001-1.035); Squamous Epithelial Cell Urine None Seen /hpf (Few); Urobilinogen Urine 0.2 mg/dL (<2.0); WBC Urine 0-5 /hpf (0-3)
[2023-11-17 12:08] LABS: Add Urine Microscopic? YES
[2023-11-17 12:19] LABS: Prostate Specific Antigen 0.4 ng/mL (< OR = 4.0)
[2023-11-17 12:51] LABS: Vitamin B12 > 1000.0 pg/mL (239-931)
[2023-11-21 12:38] LABS: Vitamin D 1,25 (OH)2 Total 10 pg/mL (18-72); Vitamin D2 1,25 (OH)2 <8 pg/mL; Vitamin D3 1,25 (OH)2 10 pg/mL
== END 2023-11-17 10:48 | disposition home or self-care (01) ==
PROVIDERS: PCP Family Medicine; Visit Provider Family Medicine
DX: Z12.5 Encounter for screening for malignant neoplasm of prostate (principal); D50.9 Iron deficiency anemia, unspecified; E78.2 Mixed hyperlipidemia; E55.9 Vitamin D deficiency, unspecified; E11.9 Type 2 diabetes mellitus without complications; D51.9 Vitamin B12 deficiency anemia, unspecified
CPT/HCPCS: 36415; 80048; 80061; 80076; 81001; 82607; 82652; 82728; 83036; 83540; 83550; 84153; 85025; G0103

== ENCOUNTER 2024-01-03 13:36 | Outpatient (CLI) | payer MEDICARE, SELFPAY ==
--- NOTE | ~2024-01-03 | CT_ITS ---
EXAMINATION: CT lumbar spine wo con DATE: 01/03/2024 14:45 INDICATION: Spinal stenosis, lumbar region with neurogenic claudication. TECHNIQUE: Computed tomography (CT) of the lumbar spine was performed without intravenous contrast. A utomated exposure control and iterative reconstruction technique were employed. The dose-length produ ct was 1423.87 mGy-cm. COMPARISON: Lumbar spine CT 12/26/2022 FINDINGS: There is 11 degrees levoscoliosis of lumbar spine. There is a chronic compression fracture of T11 with 1/5 loss of height. There is a chronic compression fracture of T12 with 2/5 loss of heigh t. There are changes of posterior fusion procedure from L1 to L5 with pedicle screws. There are lucen cies around the L5 screws, consistent with loosening. There are changes of anterior fusion procedures at L2-L3, L3-L4, and L4-L5. The interbody devices at L4-L5 extends into the left neural foramen with interval worsening. There is moderately decreased disc height at L1-L2. There are laminectomies from L2 to L4.The following disc levels are specifically discussed: L1-L2: The disc is bulging. There is severe right facet joint osteoarthritis. There is moderate right and mild left neural foraminal stenosis. There is mild central canal stenosis with posterior decompr ession. L2-L3: There is severe right facet joint osteoarthritis. There is moderate right neural foraminal sukh nosis. There is mild left neural foraminal stenosis with posterior decompression. There is no central canal stenosis. L3-L4: There is severe right facet joint osteoarthritis. There is mild right neural foraminal stenosi s. There is mild left neural foraminal stenosis with posterior decompression. There is mild central c anal stenosis with posterior decompression. L4-L5: There is severe right facet joint osteoarthritis. There is moderate right and severe left neur al foraminal stenosis. There is mild central canal stenosis with posterior decompression. L5-S1: The disc does not extend beyond the endplate margin. There is severe right and mild left facet joint osteoarthritis. There is moderate right and severe left neural foraminal stenosis. There is no central canal stenosis. IMPRESSION: 1. Posterior fusion procedure from L1 to L5 with lucency around the L5 screws, consistent with loosen ing. 2. Anterior fusion procedures from L2-L3 through L4-L5 with worsened posterior displacement of the L4 -L5 intervertebral device into the left neural foramen. 3. Moderate lumbar spondylosis. 4. Lumbar levoscoliosis. Reviewed, dictated and finalized at location E. IMPRESSION: 1. Posterior fusion procedure from L1 to L5 with lucency around the L5 screws, consistent with loosening. 2. Anterior fusion procedures from L2-L3 through L4-L5 with worsened posterior displacement of the L4-L5 intervertebral device into the left neural foramen. 3. Moderate lumbar spondylosis. 4. Lumbar levoscoliosis.
--- NOTE | ~2024-01-03 | MR_ITS ---
EXAMINATION: MR lumbar spine wo con DATE: 01/03/2024 14:50 INDICATION: Spinal stenosis, lumbar region with neurogenic claudication. TECHNIQUE: Magnetic resonance imaging (MRI) of the lumbar spine was performed without intravenous con trast. COMPARISON: Lumbar spine MRI 10/12/2022, CT 01/03/2024 FINDINGS: There is 11 degrees levoscoliosis of lumbar spine. There is a chronic compression fracture of T12 with 2/5 loss of height. There are changes of posterior fusion procedure from L1 5 with pedicl e screws. There are changes of anterior fusion procedures at L2-L3, L3-L4, and L4-L5 with interbody d evices. The interbody devices at L4-L5 involves the left neural foramen. There is moderately decrease d disc height at L1-L2. There are laminectomies from L2 to L4. The conus medullaris is at T11-T12. T he following disc levels are specifically discussed: L1-L2: The disc is bulging. There is severe bilateral facet joint osteoarthritis. There is moderate r ight and mild left neural foraminal stenosis. There is mild central canal stenosis with posterior dec ompression. L2-L3: There is moderate right facet joint hypertrophy. There is moderate right neural foraminal sten osis. There is mild left neural foraminal stenosis with posterior decompression. There is no central canal stenosis. L3-L4: There is severe right facet joint osteoarthritis. There is moderate neural foraminal stenosis. There is mild left neural foraminal stenosis with posterior decompression. There is mild central can al stenosis with posterior decompression. L4-L5: There is severe bilateral facet joint osteoarthritis. There is moderate right and severe left neural foraminal stenosis. There is mild central canal stenosis with posterior decompression. There i s severe stenosis of left lateral recess. L5-S1: The disc does not extend beyond the endplate margin. There is severe right and moderate left f acet joint osteoarthritis. There is mild right neural foraminal stenosis. There is no central canal s tenosis. IMPRESSION: 1. Severe lumbar spondylosis. 2. Posterior fusion procedure from L1 to L5 and anterior fusion procedures at L2-L3, L3-L4, and L4-L5 . Of note, the interbody device at L4-L5 involves the left neural foramen. 3. Lumbar levoscoliosis. Reviewed, dictated and finalized at location E. IMPRESSION: 1. Severe lumbar spondylosis. 2. Posterior fusion procedure from L1 to L5 and anterior fusion procedures at L 2-L3, L3-L4, and L4-L5. Of note, the interbody device at L4-L5 involves the lef t neural foramen. 3. Lumbar levoscoliosis.
== END 2024-01-03 13:37 | disposition home or self-care (01) ==
PROVIDERS: PCP Family Medicine; Visit Provider Neurological Surgery
DX: M48.062 Spinal stenosis, lumbar region with neurogenic claudication (principal); M43.06 Spondylolysis, lumbar region; M41.86 Other forms of scoliosis, lumbar region; Z98.1 Arthrodesis status
CPT/HCPCS: 72131; 72148

== ENCOUNTER 2024-01-23 10:00 | Outpatient (CLI) | payer MEDICARE, SELFPAY ==
[2024-01-23 10:35] LABS: Anion Gap 11 mmol/L (4-12); Blood Urea Nitrogen 28 mg/dL (9-20); Calcium 8.9 mg/dL (8.4-10.2); Carbon Dioxide 18 mmol/L (22-30); Chloride 106 mmol/L (98-107); Estimated Glomerular Filt Rate 35; Glucose 138 mg/dL (65-110); Phosphorus 3.2 mg/dL (2.5-4.5); Potassium 4.5 mmol/L (3.4-5.0); Sodium 135 mmol/L (137-145)
[2024-01-23 11:33] LABS: Creatinine Urine 139.7 mg/dL; Total Protein Urine Random 89 mg/dL; Ur Ttl Prot Creatinine Ratio 0.64 mg/mg (0-0.20)
== END 2024-01-23 10:01 | disposition home or self-care (01) ==
LOC: ANHLAB 10:03
PROVIDERS: PCP Family Medicine; Visit Provider Internal Medicine Nephrology
DX: I12.9 Hypertensive chronic kidney disease with stage 1 through stage 4 chronic kidney disease, or unspecified chronic kidney disease (principal); N18.32 Chronic kidney disease, stage 3b
CPT/HCPCS: 36415; 80069; 82570; 84156

== ENCOUNTER 2024-03-13 08:25 | Outpatient (CLI) | payer MEDICARE, SELFPAY ==
--- NOTE | ~2024-03-13 | MR_ITS ---
EXAMINATION: MR thoracic spine wo con DATE: 03/13/2024 09:23 INDICATION: Chronic back pain. Tingling down the left leg. TECHNIQUE: Magnetic resonance imaging (MRI) of the thoracic spine was performed without intravenous c ontrast. COMPARISON: None FINDINGS: There is 8 degrees dextrocurvature of thoracic spine. There is chronic anterior wedging of T10 and T11 vertebral bodies. There is a chronic compression fracture of T12 with 2/5 loss of height. There are changes of posterior fusion procedure in the lumbar spine. There is mildly decreased disc height at T2-T3 and T3-T4. There is multilevel facet joint osteoarthritis, severe at a few levels. At T1-T2, there is a central protrusion with mild central canal stenosis. At T2-T3, there is a central extrusion with mild central canal stenosis and ventral indentation of the spinal cord. At T3-T4, ther e is a central extrusion with mild central canal stenosis and ventral indentation of the spinal cord. At T4-T5, there is a central extrusion with mild central canal stenosis. At T5-T6, there is a left c entral extrusion with mild central canal stenosis and ventral indentation of the spinal cord. At T6-T 7, there is a central extrusion with mild central canal stenosis. At T7-T8, there is a central extrus ion with mild central canal stenosis and ventral indentation of the spinal cord. At T8-T9, there is a left central and foraminal extrusion with mild central canal stenosis. At T10-T11, the disc is bulgi ng with superimposed central extrusion with moderate central canal stenosis and ventral and dorsal in dentation of the spinal cord. At T10-T11, the disc is bulging with superimposed central extrusion wit h mild central canal stenosis. There is mild neural foraminal stenosis at a few levels on either side . On the left, there is moderate neural foraminal stenosis at T10-T11. There is increased T2-weighted signal intensity in the spinal cord at T10-T11 and T11-T12. IMPRESSION: 1. 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 2. Moderate thoracic spondylosis, worst at T10-T11. Reviewed, dictated and finalized at location A.
== END 2024-03-13 08:26 | disposition home or self-care (01) ==
LOC: GOSHIMG 08:28
PROVIDERS: PCP Family Medicine; Visit Provider Pain Medicine Pain Medicine
DX: Z01.818 Encounter for other preprocedural examination (principal); G89.29 Other chronic pain; R20.2 Paresthesia of skin
CPT/HCPCS: 72146

== ENCOUNTER 2024-06-28 09:22 | Outpatient (CLI) | payer MEDICARE, SELFPAY ==
[2024-06-28 10:24] LABS: Basophils Absolute Auto 0.1 K/mm3 (0.0-0.1); Basophils Percent Auto 0.7 % (0.2-1.2); Eosinophils Absolute Auto 0.2 K/mm3 (0-0.3); Eosinophils Percent Auto 2.1 % (0-4.4); Hematocrit 42.3 % (42.0-52.0); Hemoglobin 13.8 g/dL (14.0-18.0); Immature Granulocyte Absolute 0.03 K/mm3 (0.00-0.031); Immature Granulocyte Percent A 0.3 % (0-0.5); Lymphocytes Absolute Auto 3.37 K/mm3 (0.9-3.2); Mean Corpuscular HGB Conc 32.6 g/dl (32-36); Mean Corpuscular Hemoglobin 27.7 pg (26-34); Mean Corpuscular Volume 84.8 fl (80-100); Mean Platelet Volume 9.6 fl (7.4-10.4); Monocytes Absolute Auto 0.5 K/mm3 (0.1-0.6); Neutrophils Percent Auto 58.9 % (45.5-73.1); Platelet Count Result 338 k/mm3 (150-375); Red Blood Count 4.99 M/mm3 (4.6-6.20); White Blood Count 10.2 K/mm3 (4.5-10.0)
[2024-06-28 10:32] LABS: Alanine Aminotransferase 14 U/L (6-50); Albumin Level 4.3 g/dL (3.5-5.1); Alkaline Phosphatase 91 U/L (38-126); Anion Gap 6 mmol/L (4-12); Aspartate Amino Transferase 18 U/L (17-59); Bilirubin,Total 0.5 mg/dL (0.2-1.3); Blood Urea Nitrogen 28 mg/dL (9-20); Calcium 9.4 mg/dL (8.4-10.2); Carbon Dioxide 26 mmol/L (22-30); Chloride 103 mmol/L (98-107); Cholesterol 195 mg/dL (0-200); Estimated Glomerular Filt Rate 30; Glucose 121 mg/dL (65-110); HDL Direct 36 mg/dL; Potassium 5.2 mmol/L (3.4-5.0); Sodium 135 mmol/L (137-145); Triglycerides 326 mg/dL (<150)
[2024-06-28 10:43] LABS: LDL Cholesterol Direct 74 mg/dL
[2024-06-28 10:51] LABS: Iron 70 ug/dL (49-181)
[2024-06-28 11:00] LABS: Percent Iron Saturation 21 % (20-50); TOTAL IRON BINDING CAPACITY 326 ug/dL (265-497)
[2024-06-28 12:11] LABS: Hemoglobin A1C 7.1 % (<5.7)
== END 2024-06-28 09:23 | disposition home or self-care (01) ==
LOC: ANHLAB 09:23
PROVIDERS: PCP Family Medicine; Visit Provider Family Medicine
DX: D50.9 Iron deficiency anemia, unspecified (principal); E78.2 Mixed hyperlipidemia; E11.9 Type 2 diabetes mellitus without complications
CPT/HCPCS: 36415; 80048; 80061; 80076; 82728; 83036; 83540; 83550; 84443; 85025

== ENCOUNTER 2024-08-01 09:35 | Outpatient (CLI) | payer MEDICARE, SELFPAY ==
--- OUTSIDE RECORDS SUMMARY | 2024-08-01 09:47 | XMS_ITS | Continuity of Care Document ---
Author Organization [facility] Address [address] [place] [address] Phone Care Team Providers Care Ticket Maker Name Role Phone Rick Londono MD Unavailable [...] Replcmt X-ray exam shoulder, 1 view Office/outpatient visit,[facility] [place] [place] 2021 Advance Directives Directive Yes / No Effective Date File Name No Information Encounters Encounter Description Practice Location Reason(s) For Visit Diagnoses Date Provider Providers Copied on Encounter [facility], [address] [address], [place], [place], [id number], [place] tel:[phone] [facility] No Information 3 Spring Cabrera. [address] [facility], [facility] [address], [place], [place], [id number] , [place]. tel:[phone] Office/outpa tient visit,est, low [facility], [address] [address], [place], [place], [id number], [place] tel:[phone] [facility] Left shoulder (chief complaint) Presence of left artificial shoulder joint 3 Spring Cabrera. [address] [facility], [facility] [address], [place], [place], [address] , [place]. tel:[phone] Office/outpa tient visit,[facility], [facility] [place] [place] [facility], [address] [address], [place], [place], [address], [place] tel:[phone] [facility] Followup (chief complaint) Presence of left artificial shoulder jointPain in left hipContusion of left hip, initial encounter 2 Spring Cabrera. [address] [facility], [facility] [address], [place], [place], [address] , [place]. tel:[phone] Referring Provider: Rick Segal, [address] [facility] [address] [facility], [place], [address] . tel:[phone] [facility], [address], [id number], [place] tel:[phone] [facility] left shoulder (chief complaint) Presence of left artificial shoulder joint 2 Franck Proctor. [address] [facility], [address] [address], [place], [place], [id number] , . [phone] Referring Provider: Esthela Bone, [facility] [facility] [address] [facility], [place], [address] . tel:[phone] [facility], [address] [place] [address], [id number], tel:[phone] No Information 2 Spring Cabrera. [address] [place] [address], [address] [address], [place], [place], [id number] , [place]. [phone] Referring Provider: Rick Segal, [address] [place] [address], [place], [address] . tel:[phone] Office/outpa tient visit,[facility], [address] [place] [address], [place], [place], [id number], tel:[phone] [facility] Shoulder (chief complaint) Pain in left shoulderPrimary osteoarthritis, left shoulderIdiopathi c aseptic necrosis of left shoulder 2 Spring Cabrera. [address] [place] [address], [address] [address], [place], [place], [address] , [place]. tel:[phone] Referring Provider: Rick Segal, [address] [place] [address], [place], [address] . tel:[phone] Family History Family Member Type Diagnosis Age At Onset Father Problem (finding) Diabetes Mother Problem (finding) Diabetes Mother Problem (finding) Heart Disease Father Problem (finding) Cancer, unknown Father Problem (finding) Gout Immunizations Vaccine Date Status Comments influenza, injectable, quadr ivalent, (3 years or older) administered Source: Other Provid er Payers Payer name Insurance type Covered libertarian ID Authoriza tion(s) Aetna Medicare CI [id number] Social History Type Description Quantity Date Captured [...]
--- OUTSIDE RECORDS SUMMARY | 2024-08-01 09:47 | XMS_ITS | Clinical Summary ---
Author Organization [facility] Address [address], [place] [address] Phone Care Team Providers Care Computer Support Specialist Name Role Phone Andre Ontiveros MD Primary Care Provider [phone] Allergies No known active allergies Medications Medication Sig Dispensed Refills Start Date End Date Status amitriptyline (ELAVIL) 10 MG tablet amitriptyline 10 mg tablet TAKE ONE TABLET DAILY AT BEDTIME 02/14/2022 Active atorvastatin (LIPITOR) 20 MG tablet 12/19/2021 Active Dapagliflozin Propanediol (Farxiga) 10 MG tablet Farxiga 10 mg tablet 04/28/2021 Acti ve dorzolamide-timolol (COSOPT) 22.3-6.8 MG/ML ophthalmic solution Administer 1 drop into both eyes 2 (two) times a day 01/24/2022 Active DULoxetine (CYMBALTA) [address] capsule duloxetine 60 mg capsule,delayed release 02/14/2022 Active latanoprost (XALATAN) 0.005 % ophthalmic solution INSTILL 1 DROP INTO BOTH EYES EACH NIGHT AT BEDTIME 01/23/2022 Active lisinopril (PRINIVIL) 40 MG tablet Take 40 mg by mouth 1 (one) time each day 01/23/2022 Active metFORMIN (GLUCOPHAGE) 1000 MG tablet metformin 1,000 mg tablet 11/11/2021 Active pantoprazole (PROTONIX) 40 MG EC tablet Take 40 mg by mouth 1 (one) time each day in the morning 03/22/2022 Active Active Problems Problem Noted Date Diagnosed Date Peripheral vascular disease 03/31/2022 Insomnia 03/31/2022 Hypertension 03/31/2022 Hyperlipidemia 03/31/2022 Diabetic peripheral neuropathy 03/31/2022 Diabetes mellitus 03/31/2022 Chronic kidney disease 03/31/2022 Chronic depression 03/31/2022 Anemia 03/31/2022 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 02/16/2022 Immunizations Name Administration Dates Next Due Influenza, Quadrivalent 03/26/2021 Sars-cov-2, Unspecified 10/06/2020 Family History Medical History Relation Comments Lung cancer Father Congestive heart failure Mother Relation Status Comments Father Mother Social History Tobacco Use Types Packs/Day Years Used Date Smoking Tobacco: Never Smokeless Tobacco: Never Tobacco Cessation:Counseling Given: Not Answered Alcohol Use Standard Drinks/Week Comments Never 0 (1 standard drink = 0.6 oz pur e alcohol) Sex and Gender Information Value Date Recorded Sex Assigned at Not on file Gender Identity Not on file Sexual Orientation Not on file Last Filed Vital Signs Vital Sign Reading Time Taken Comments Blood Pressure 138/78 05/18/2022 11:26 AM BLOOD BANK BOOKING CLERK Pulse - - Temperature 36.5 C (97.7 F) 05/18/2022 11:26 AM BLOOD BANK BOOKING CLERK Respiratory Rate 18 05/18/2022 11:26 AM BLOOD BANK BOOKING CLERK Oxygen Saturation - - Inhaled Oxygen Concentration - - Weight 143 kg (316 lb) 05/18/2022 11:26 AM BLOOD BANK BOOKING CLERK Height 182.9 cm (6') 05/18/2022 11:26 AM BLOOD BANK BOOKING CLERK Body Mass Index 42.86 05/18/2022 11:26 AM BLOOD BANK BOOKING CLERK Plan of Treatment Health Maintenance Due Date Last Done Comments Pneumococcal PPSV23/PCV13 65 + Years / High and Highest Risk (1 of 4 - PCV) 1959 Diabetic Foot Exam 1963 Ophthalmology Exam 1963 Influenza Vaccine (#1) 2024 Care Teams Computer Support Specialist Relationship Specialty Start Date End Date Andre Ontiveros MD [address] [place] [address] PCP - General Internal Medicine 01/10/22
--- OUTSIDE RECORDS SUMMARY | 2024-08-01 09:47 | XMS_ITS | Continuity of Care Document ---
Author Organization [facility] Address [address] [facility] [address] [place] [address] Phone Care Team Providers Care Special Education Associate Name Role Phone Kash Zazueta Unavailable Unavailable Advance Directives Directive Yes / No Effective Date File Name No Information Encounters Encounter Description Practice Location Reason(s) For Visit Diagnoses Date Provider Providers Copied on Encounter [facility], [address], [place], [place], [id number], [place] tel:[phone] No Information October-0 1-200 2 Arielsy Edfelix. [address], [place], [address], [place]. tel:[phone] Family History Family Member Type Diagnosis Age At Onset No Information Payers Payer name Insurance type Covered constitution party ID Authoriza tion(s) No Information Social [...]
[2024-08-01 10:34] LABS: Albumin Level 3.7 g/dL (3.5-5.1); Anion Gap 13 mmol/L (4-12); Blood Urea Nitrogen 31 mg/dL (9-20); Carbon Dioxide 21 mmol/L (22-30); Chloride 102 mmol/L (98-107); Estimated Glomerular Filt Rate 28; Glucose 127 mg/dL (65-110); Phosphorus 4.4 mg/dL (2.5-4.5); Potassium 4.2 mmol/L (3.4-5.0); Sodium 136 mmol/L (137-145)
[2024-08-01 10:42] LABS: Parathyroid Intact 51.6 pg/mL (14.5-75.2)
[2024-08-01 11:16] LABS: Vitamin D 25 Hydroxy 30.5 ng/mL
[2024-08-01 14:24] LABS: Creatinine Urine 72.9 mg/dL; Total Protein Urine Random 54 mg/dL; Ur Ttl Prot Creatinine Ratio 0.74 mg/mg (0-0.20)
== END 2024-08-01 09:36 | disposition home or self-care (01) ==
PROVIDERS: PCP Family Medicine; Visit Provider Internal Medicine Nephrology
DX: I12.9 Hypertensive chronic kidney disease with stage 1 through stage 4 chronic kidney disease, or unspecified chronic kidney disease (principal); N18.32 Chronic kidney disease, stage 3b; N25.81 Secondary hyperparathyroidism of renal origin; E55.9 Vitamin D deficiency, unspecified
CPT/HCPCS: 36415; 80069; 82306; 82570; 83970; 84156

== ENCOUNTER 2024-08-12 10:41 | Outpatient (CLI) | payer MEDICARE, SELFPAY ==
--- NOTE | 2024-08-12 12:05 | ECG_ITS ---
Test Date: 2024-08-12 12:17:13 Measurements Intervals Lynd Rate: 70 P: 0 WI: 0 QRS: -25 QRSD: 127 T: 22 QT: 407 QTc: 439 Interpretive Statements SINUS RHYTHM WITH FIRST DEGREE AV BLOCK RIGHT BUNDLE BRANCH BLOCK CONSIDER INFERIOR INFARCT, AGE INDETERMINATE BASELINE ARTIFACT- I, II, III, AVR, AVL, AVF, V4-V6 ABNORMAL ECG No previous ECG available for comparison Electronically Signed On 08-12-2024 12:40:10 RENEWABLE ENERGY PROJECT MANAGER by Arjun Adams D.O.
[2024-08-12 12:33] LABS: Hematocrit 38.5 % (42.0-52.0); Hemoglobin 12.5 g/dL (14.0-18.0); Mean Corpuscular HGB Conc 32.5 g/dl (32-36); Mean Corpuscular Hemoglobin 27.5 pg (26-34); Mean Corpuscular Volume 84.6 fl (80-100); Mean Platelet Volume 9.2 fl (7.4-10.4); Platelet Count Result 326 k/mm3 (150-375); Red Blood Count 4.55 M/mm3 (4.6-6.20); Red Cell Distribution Width 14.3 % (11.5-14.5)
[2024-08-12 12:40] LABS: Add Urine Microscopic? YES; Appearance Urine Clear (Clear); Bacteria Urine None Seen /hpf; Bilirubin Urine Negative (Negative); Blood Urine Trace (Negative); Color Urine Yellow (Yellow); Glucose Urine UA 3+ mg/dL (Negative); Ketones Urine Negative (Negative); Leukocyte Esterase Ur Negative LEU/UL (Negative); Nitrate Urine Negative (Negative); Protein Urine 3+ mg/dL (Negative); RBC Urine 0-2 /hpf (0-2); Specific Grav Ur 1.018 (1.001-1.035); Squamous Epithelial Cell Urine None Seen /hpf (Few); Urobilinogen Urine 0.2 mg/dL (<2.0); WBC Urine 0-5 /hpf (0-3); pH Urine 5.5 (5.0-9.0)
[2024-08-12 12:44] LABS: Partial Thromboplastin Time 24.8 Seconds (22.3-36.8); Prothrombin Time 13.1 Seconds (11.1-14.7)
--- OUTSIDE RECORDS SUMMARY | 2024-08-12 13:51 | XMS_ITS | Continuity of Care Document ---
Author Organization [facility] Address [address] [facility] [address] [place] [address] Phone Care Team Providers Care Director Funeral Name Role Phone Kash Zazueta Unavailable Unavailable Advance Directives Directive Yes / No Effective Date File Name No Information Encounters Encounter Description Practice Location Reason(s) For Visit Diagnoses Date Provider Providers Copied on Encounter [facility], [address], [place], [place], [id number], [place] tel:[phone] [facility] No Information October-0 1-200 2 Arielsy Edfelix. [address] , [address], [place], [address], [place]. tel:[phone] Family History Family Member Type Diagnosis Age At Onset No Information Payers Payer name Insurance type Covered alliance party ID Authoriza tion(s) No Information Social [...]
--- OUTSIDE RECORDS SUMMARY | 2024-08-12 13:51 | XMS_ITS | Continuity of Care Document ---
Author Organization [facility] Address [address] [place] [address] Phone Care Team Providers Care Radiology Scheduler Name Role Phone Rick Londono MD Unavailable [...] Replcmt X-ray exam shoulder, 1 view Office/outpatient visit,[facility] 2021 Advance Directives Directive Yes / No Effective Date File Name No Information Encounters Encounter Description Practice Location Reason(s) For Visit Diagnoses Date Provider Providers Copied on Encounter [facility], [address] [address], [place], [place], [id number], [place] tel:[phone] [facility] No Information 3 Spring Cabrera. [address] [facility], [facility] [address], [place], [place], [id number] , [place]. tel:[phone] Office/outpa tient visit,est, low [facility], [address] [address], [place], [place], [id number], [place] tel:[phone] [facility] Left shoulder (chief complaint) Presence of left artificial shoulder joint 3 Spring Cabrera. [address] [facility], [facility] [address], [place], [place], [address] , [place]. tel:[phone] Office/outpa tient visit,[facility], [address] [address], [place], [place], [address], [place] tel:[phone] [facility] Followup (chief complaint) Presence of left artificial shoulder jointPain in left hipContusion of left hip, initial encounter 2 Spring Cabrera. [address] [facility], [facility] [address], [place], [place], [address] , [place]. tel:[phone] Referring Provider: Rick Segal, [address] [facility] [address] [facility], [place], [address] . tel:[phone] [facility], [address], [id number], [place] tel:[phone] [facility] left shoulder (chief complaint) Presence of left artificial shoulder joint 2 Franck Proctor. [address] [facility], [address] [address], [place], [place], [id number] , . [phone] Referring Provider: Esthela Bone, [facility] [facility] [address] [facility], [place], [address] . tel:[phone] [facility], [address] [place] [address], [id number], tel:[phone] [facility] No Information 2 Spring Cabrera. [address] [place] [address], [address] [address], [place], [place], [address] , [place]. [phone] Referring Provider: Rick Segal, [address] [place] [address], [place], [address] . tel:[phone] Office/outpa tient visit,[facility], [address] [place] [address], [place], [place], [id number], tel:[phone] [facility] Shoulder (chief complaint) Pain in left shoulderPrimary osteoarthritis, left shoulderIdiopathi c aseptic necrosis of left shoulder 2 Spring Cabrera. [address] [place] [address], [address] [address], [place], [place], [id number] , [place]. tel:[phone] Referring Provider: Rick Segal, [address] [place] [address], [place], [address] . tel:[phone] Family History Family Member Type Diagnosis Age At Onset Father Problem (finding) Diabetes Mother Problem (finding) Diabetes Mother Problem (finding) Heart Disease Father Problem (finding) Cancer, unknown Father Problem (finding) Gout Immunizations Vaccine Date Status Comments influenza, injectable, quadr ivalent, (3 years or older) administered Source: Other Provid er Payers Payer name Insurance type Covered alliance party ID Authoriza tion(s) Aetna Medicare CI [id number] Social History Type Description Quantity Date Captured [...]
--- OUTSIDE RECORDS SUMMARY | 2024-08-12 13:52 | XMS_ITS | Clinical Summary ---
Author Organization [facility] Address [address], [place] [address] Phone Care Team Providers Care Top Waddy Name Role Phone Andre Ontiveros MD Primary Care Provider [phone] Allergies No known active allergies Medications Medication [...] Comments Blood Pressure 138/78 05/18/2022 11:26 AM BILLING REPRESENTATIVE Pulse - - Temperature 36.5 C (97.7 F) 05/18/2022 11:26 AM BILLING REPRESENTATIVE Respiratory Rate 18 05/18/2022 11:26 AM BILLING REPRESENTATIVE Oxygen Saturation - - Inhaled Oxygen Concentration - - Weight 143 kg (316 lb) 05/18/2022 11:26 AM BILLING REPRESENTATIVE Height 182.9 cm (6') 05/18/2022 11:26 AM BILLING REPRESENTATIVE Body Mass Index 42.86 05/18/2022 11:26 AM BILLING REPRESENTATIVE Plan of Treatment Health Maintenance Due Date Last Done Comments Pneumococcal PPSV23/PCV13 65 + Years / High and Highest Risk (1 of 4 - PCV) 1959 Diabetic Foot Exam 1963 Ophthalmology Exam 1963 Influenza Vaccine (#1) 2024 Care Teams Top Waddy Relationship Specialty Start Date End Date Andre Ontiveros MD [address] [place] [address] PCP - General Internal Medicine 01/10/22
== END 2024-08-12 10:42 | disposition home or self-care (01) ==
LOC: ANHSURGERY 10:48
PROVIDERS: PCP Family Medicine; Visit Provider Neurological Surgery
DX: Z01.818 Encounter for other preprocedural examination (principal); R94.31 Abnormal electrocardiogram [ECG] [EKG]; M48.04 Spinal stenosis, thoracic region; I10 Essential (primary) hypertension
CPT/HCPCS: 36415; 81001; 85027; 85610; 85730; 93005

== ENCOUNTER 2024-08-28 18:50 | Observation (INO) | payer MEDICARE, SELFPAY ==
[2024-08-12 11:20] VITALS: BP 151/78; PULSE 64; RESP 16; TEMP 36.4; O2SAT 100; BMI 41.4
--- NOTE | 2024-08-12 11:37 | PC.NURSE ---
Report to the Outpatient Waiting Room, entrance under the green pavilion located off [facility], at time ___11:00AM____ on date ___08/27/24____. Planned Procedure Time: ___1:00PM .? Time changes happen often and if your time is changed the preop area will call you the afternoon before. - You and your visitor will be asked to self-screen and do not enter if you have any COVID symptoms. Please call surgeon if you need to reschedule. - A mask is optional within the hospital at this time. Patients may have clear liquids (water, carbonated beverages, clear teas, apple juice) until 3 hours prior to surgery (10:00AM) with a maximum of 20 ounces. - No food from midnight until time of surgery and no smoking, or chewing tobacco (or any form of nicotine). No chewing gum, candy or mints. Take only the following medications with a SIP of water on the morning of surgery: ___DULOXETINE, EYE DROPS DO NOT STOP ANY OF YOUR OTHER PRESCRIPTION MEDICATIONS PRIOR TO SURGERY EXCEPT THE FOLLOWING Hold all vitamins and supplements for 3 days per anesthesiologist.-LAST DOSE 08/23/24 Medications to discontinue per physician NONE Date to take last dose Please no make-up, nail lao, hairspray, perfume, deodorant, or body powder the day of surgery.? No jewelry (including any body piercings) or valuables the day of surgery, leave them at home.? Please take a shower or bath the night before, or the morning of, surgery with an antibacterial soap.? Wear comfortable, loose fitting clothing.? - Jewelry must be removed prior to entering the operating room.? Rings and piercings that are not removed may be cut off. - The hospital will not accept responsibility for valuables.? - Please leave all valuables, including medications, at home the day of surgery. If you are going home after surgery, a licensed driver license agent must drive you home.? - NO public transportation without another adult if you receive anesthesia. - We recommend that an adult stay with you for 24 hours following discharge. - We also recommend that you do not drive, make important decision, drink alcoholic beverages, or take any drugs that were not prescribed by your health care provider for at least 24 hours after your discharge time. Follow any additional instructions given to you from your surgeon. Telephone instructions given to ___PATIENT & WIFE and asked if any additional questions and then verbalized understanding. Patient advised to call surgeon office or pre surgery nurse liaison [phone] if any additional questions.
[2024-08-27] VITALS (13 sets, daily range): BP systolic 109–194; BP diastolic 65–103; PULSE 54–72; RESP 16–20; TEMP 36.1–36.9; O2SAT 93–100; BMI 39.5; BMI 40.0
--- OUTSIDE RECORDS SUMMARY | 2024-08-27 00:26 | XMS_ITS | Continuity of Care Document ---
Author Organization [facility] Address [address] [facility] [address] [place] [address] Phone Care Team Providers Care Oscillograph Technician Name Role Phone Kash Zazueta Unavailable Unavailable Advance Directives Directive Yes / No Effective Date File Name No Information Encounters Encounter Description Practice Location Reason(s) For Visit Diagnoses Date Provider Providers Copied on Encounter [facility], [address], [place], [place], [id number], [place] tel:[phone] [facility] No Information October-0 1-200 2 Arielsy Edfelix. [address], [place], [address], [place]. tel:[phone] Family History Family Member Type Diagnosis Age [...]
--- OUTSIDE RECORDS SUMMARY | 2024-08-27 00:26 | XMS_ITS | Clinical Summary ---
Author Organization [facility] Address [address], [place] [address] Phone Care Team Providers Care Tin Assorter Name Role Phone Andre Ontiveros MD Primary Care Provider [phone] Allergies No known active allergies Medications Medication [...] Comments Blood Pressure 138/78 05/18/2022 11:26 AM DESULFURIZER MACHINE Pulse - - Temperature 36.5 C (97.7 F) 05/18/2022 11:26 AM DESULFURIZER MACHINE Respiratory Rate 18 05/18/2022 11:26 AM DESULFURIZER MACHINE Oxygen Saturation - - Inhaled Oxygen Concentration - - Weight 143 kg (316 lb) 05/18/2022 11:26 AM DESULFURIZER MACHINE Height 182.9 cm (6') 05/18/2022 11:26 AM DESULFURIZER MACHINE Body Mass Index 42.86 05/18/2022 11:26 AM DESULFURIZER MACHINE Plan of Treatment Health Maintenance Due Date Last Done Comments Pneumococcal PPSV23/PCV13 65 + Years / High and Highest Risk (1 of 4 - PCV) 1959 Diabetic Foot Exam 1963 Ophthalmology Exam 1963 Influenza Vaccine (#1) 2024 Care Teams Tin Assorter Relationship Specialty Start Date End Date Andre Ontiveros MD [address] [place] [address] PCP - General Internal Medicine 01/10/22
--- OUTSIDE RECORDS SUMMARY | 2024-08-27 00:26 | XMS_ITS | Continuity of Care Document ---
Author Organization [facility] Address [address] [facility] [address] [place] [address] Phone Care Team Providers Care J2Ee Programmer Name Role Phone Rick Londono MD Unavailable [...] Replcmt X-ray exam shoulder, 1 view Office/outpatient visit,[facility] 2021 Advance Directives Directive Yes / No Effective Date File Name No Information Encounters Encounter Description Practice Location Reason(s) For Visit Diagnoses Date Provider Providers Copied on Encounter [facility], [address] [address], [place], [place], [id number], [place] tel:[phone] [facility] No Information 3 Spring Cabrera. [address] [facility], [facility] [address], [place], [place], [address] , [place]. tel:[phone] Office/outpa tient visit,est, low [facility], [address] [address], [place], [place], [address], [place] tel:[phone] [facility] Left shoulder (chief complaint) Presence of left artificial shoulder joint 3 Spring Cabrera. [address] [facility], [facility] [address], [place], [place], [id number] , [place]. tel:[phone] Office/outpa tient visit,[facility], [facility], [address] [address], [place], [place], [address], [place] tel:[phone] [facility] Followup (chief complaint) Presence of left artificial shoulder jointPain in left hipContusion of left hip, initial encounter 2 Spring Cabrera. [address] [facility], [facility] [address], [place], [place], [address] , [place]. tel:[phone] Referring Provider: Rick Segal, [address] [facility] [address] [facility], [place], [address] . tel:[phone] [facility], [address], [id number], [place] tel:[phone] [facility] left shoulder (chief complaint) Presence of left artificial shoulder joint 2 Franck Proctor. [address] [facility], [address] [address], [place], [place], [address] , . [phone] Referring Provider: Esthela Bone, [facility] [facility] [address] [facility], [place], [address] . tel:[phone] [facility], [address] [place] [address], [id number], tel:[phone] [facility] No Information 2 Spring Cabrera. [address] [place] [address], [address] [address], [place], [place], [address] , [place]. [phone] Referring Provider: Rick Segal, [address] [place] [address], [place], [address] . tel:[phone] Office/outpa tient visit,[facility], [address] [place] [address], [place], [place], [address], tel:[phone] [facility] Shoulder (chief complaint) Pain in left shoulderPrimary osteoarthritis, left shoulderIdiopathi c aseptic necrosis of left shoulder 2 Spring Cabrera. [address] [place] [address], [address] [address], [place], [place], [address] , [place]. tel:[phone] Referring Provider: Rick Segal, [address] [place] [address], [place], [address] . tel:[phone] Family History Family Member Type Diagnosis Age At Onset Father Problem (finding) Diabetes Mother Problem (finding) Diabetes Mother Problem (finding) Heart Disease Father Problem (finding) Cancer, unknown Father Problem (finding) Gout Immunizations Vaccine Date Status Comments influenza, injectable, quadr ivalent, (3 years or older) administered Source: Other Provid er Payers Payer name Insurance type Covered republican ID Authoriza tion(s) Aetna Medicare CI [id number] Social History Type Description Quantity Date Captured [...]
--- NOTE | 2024-08-27 11:38 | WPDANESEPPF ---
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, chronic back & leg pain Patient Data Age: 69 Gender: M Height: 1.84 m Weight: 140.5 kg Last Vital Signs Temp 36.4 C 08/12/24 11:20 Pulse 64 08/12/24 11:20 Resp 16 08/12/24 11:20 BP 151/78 H 08/12/24 11:20 Pulse Ox 100 08/12/24 11:20 O2 Del Method Room Air 08/12/24 11:20 Allergies Allergy/AdvReac Type Severity Reaction Status Date / Time chlorhexidine AdvReac Severe Itching Verified 08/14/24 07:49 Home Medications ?Medication ?Instructions ?Recorded ?Confirmed ?Type ferrous sulfate 324 mg (65 mg 324 mg PO DAILY 04/26/22 08/27/24 History iron) tablet,delayed release latanoprost 0.005 % eye drops 1 drp ophthalmic (eye) HS 04/26/22 08/27/24 History dorzolamide 22.3 mg-timolol 6.8 1 drp EACH EYE BID 09/15/22 08/27/24 History mg/mL eye drops cyanocobalamin (vitamin B-12) 2,000 mcg PO DAILY 11/24/22 08/27/24 History 1,000 mcg tablet dapagliflozin propanediol 10 mg 5 mg PO .M-W-F 08/02/23 08/27/24 History tablet (Farxiga) amitriptyline 10 mg tablet 20 mg (2 x 10 mg) PO . q.h.s. #180 10/10/23 08/14/24 Rx tabs cholecalciferol (vitamin D3) 50 2,000 unit PO DAILY 11/27/23 08/27/24 History mcg (2,000 unit) tablet metformin 1,000 mg tablet 1,000 mg PO BID #180 tabs 01/05/24 08/27/24 Rx atorvastatin 20 mg tablet 20 mg PO . Q.a.m. #90 tabs 02/05/24 08/27/24 Rx lisinopril 40 mg tablet 40 mg PO DAILY #90 tabs 03/19/24 08/27/24 Rx duloxetine 60 mg capsule,delayed 60 mg PO BID #180 caps 04/01/24 08/27/24 Rx release pantoprazole 40 mg tablet,delayed 40 mg PO QAM #90 tabs 07/08/24 08/27/24 Rx release acetaminophen 500 mg capsule 1,000 mg PO Q6H PRN pain 08/12/24 08/14/24 History nystatin 100,000 unit/gram topical 1 applic topical BID PRN skin 08/12/24 08/27/24 History powder irritation Patient hx anesthesia problems: none Family hx anesthesia problems: none Results Review: All pre-operative results and documents have been reviewed as part of the pre-operative evaluation. [facility] Past Medical History Medical History Stage 3b chronic kidney disease BUN 27, creatinine 1.70, GFR 40 11/14/2022. BUN 27, creatinine 1.8, GFR 37 on 04/19/2023. BUN 33, creatinine 1.63 with GFR 43 on 07/24/2023. BUN 34, creatinine 2.0 with GFR 33 on 11/17/2023. BUN 28, creatinine 2.20 with GFR 30 on 06/28/2024. Stage 3a chronic kidney disease BUN 27, creatinine 1.70, GFR 40 11/14/2022. BUN 27, creatinine 1.8, GFR 37 on 04/19/2023. BUN 33, creatinine 1.63 with GFR 43 on 07/24/2023. BUN 34, creatinine 2.0 with GFR 33 on 11/17/2023. BUN 28, creatinine 2.20 with GFR 30 on 06/28/2024. Failure of spinal cord stimulator Tinea cruris (~11/27/23) Lower extremity edema Acute kidney failure At high risk for falls (~11/24/22) Encounter for prostate cancer screening PSA 0.4 on 11/14/2022. BMI 39.0-39.9,adult FHx: cholecystectomy BMI 38.0-38.9,adult Obesity (BMI 30-39.9) COVID-19 (~12/2021) fully vaccinated and moderate symptoms Encounter for hepatitis C screening test for low risk patient Screening was negative on 11/14/2022. GERD with esophagitis (03/17/22) esophagitis on EGD 03/17/2022. Nonerosive reflux disease on EGD 05/05/2022. Gastritis (03/17/22) EGD on 03/17/2022 with gastritis and ulcerations . EGD on 05/05/2022 with nonerosive reflux with no gastritis or ulcerations. Duodenal ulcer disease (03/17/22) EGD with duodenal ulcers 03/17/2022. No ulcerations on EGD 05/05/2022. Abscess of skin or subcutaneous tissue (~01/29/22) Left buttocks midline Iron deficiency anemia, unspecified (12/13/21) are low at 43 with 16% saturation and ferritin 32 with hemoglobin 12.0 on 12/13/2021. iron 59 with 22% saturation and ferritin 34 on 04/05/2022. Iron 88 with 28% saturation and ferritin 40.9 on 11/14/2022. Hemoglobin 9.2 on 01/09/2023. Eighty, 28% saturation, ferritin 39.30 with hemoglobin 12.3 on 11/17/2023. Iron 70 with 21% saturation and ferritin 32.5 with hemoglobin 13.8 on 06/28/2024. Cyanosis bilateral feet . Arterial Doppler study of the lower extremities 11/24/2021 was normal. Nonpalpable pulse bilateral feet . Arterial Doppler 11/24/2021 of the lower extremities was normal. Anemia (11/03/21) hemoglobin 11.4 on 11/03/2021. hemoglobin 12.0 with iron 43, 60% saturation and ferritin 32 but 12/13/2021. Edema of both lower legs due to peripheral venous insufficiency Morbid obesity with BMI of 40.0-44.9, adult Chronic kidney disease (CKD) stage G3b/A1, moderately decreased glomerular filtration rate (GFR) between 30-44 mL/min/1.73 square meter and albuminuria creatinine ratio less than 30 mg/g BUN 20 day with creatinine 1.93 with GFR 35, decreased from 39 on 12/13/2021. BUN 33, creatinine 1.88 with GFR 38 on 04/05/2022. Worsening renal function Right elbow pain Open-angle glaucoma of both eyes followed by direct care professional with last appointment 02/09/2021 Screening for diabetic retinopathy dilated eye exam on 02/09/2021 reveals no retinopathy . Recheck in 1 year. No retinopathy on 02/08/2023. Cataracts noted. No retinopathy on 08/24/2023. no retinopathy on 07/23/2024. Microscopic hematuria Actinic keratosis Insomnia Chronic depression Vitamin D deficiency, unspecified Level normal at 36 on 09/09/2022 with level low at 16 on 11/14/2022. Normal at 33.2 on 07/24/2023. level low at 10 on 11/17/2023. Vitamin B12 deficiency anemia Level normal at 865 with folic acid 7.5 and hemoglobin 12.1 on 11/14/2022. Greater than 1000 on 11/17/2023. Body mass index (BMI) 40.0-44.9, adult (03/04/19) Chronic left shoulder pain resolved with total reverse shoulder surgery 05/10/2022. Acute pharyngitis Acute sinusitis Cholecystectomy planned Hypertension Hypercholesterolemia Diabetic neuropathy Diabetes Surgical History Surgical History Previous back surgery H/O shoulder surgery Family History Family History Father Family history of lung cancer, Onset Age: 80 Mother Family history of congestive heart failure, Onset Age: 90 Social History Social History Social History: Caffeine-soda/tea Smoking status: Never smoker Second hand tobacco smoke exposure: Yes Alcohol intake: former Drinks per week: 0 Substance use: never Substance use type: does not use Do You Feel Safe in your Home?: Yes Lack of Transportation: No Lack of Food: Never True Current Housing: I Have Housing Concerned About Future Housing: No Difficulty Paying Gas/Electric Bills: No Difficulty Paying for Meds: No Currently Unemployed: No Education: High School Diploma/GED Difficulty w/ Childcare or Family Care: No Living arrangements: with family Additional living arrangements comments: JR Gender identity (if verbalized by the patient): Male Spiritual care concerns: No Anes - Eval Final PreProcedure Day of Procedure 08/27/24 11:38 Patient weight: morbidly obese Heart: regular rate and rhythm Lungs: clear to auscultation Airway: Mallampati scale class II Neurological: alert and oriented Last oral intake: >/= 8 hours ASA classification: IV Emergent: no Anesthetic plan: proceed Anesthesia type and monitoring: general ETT and standard monitoring Results Review: All pre-operative results and documents have been reviewed as part of the pre-operative evaluation. Informed Consent: The patient's anesthetic plan and its attendant risks and benefits were discussed with the patient/family/POA. Questions were solicited and answers provided to the satisfaction of the patient/family/POA.
[2024-08-27 11:50] LABS: Glucose Point of Care 158 mg/dl (65-105)
--- NOTE | 2024-08-27 11:52 | SUR.PREOP ---
patients blood pressure was 194/104 with a HR of 69, MD Cheung notified and 10mg of hydralazine was given
[2024-08-27] MEDS: LACTATED RINGERS 1,000 ML 30 ML IV CONT ×3 (11:53→16:29)
[2024-08-27] MEDS: hydrALAZINE HCL 20 MG/ML VIAL 10 MG IV PUSH (11:53)
[2024-08-27] MEDS: ceFAZolin 3 GM/D5W 100 ML 100 ML IVPB (14:03)
--- NOTE | 2024-08-27 14:04 | PM.IMHP ---
H&P: HPI History of Present Illness Date/Time: 08/27/24 14:04 Chief Complaint: Back and leg pain, myelopathy Narrative: Abhinav is here today for T10-11 laminectomy and placement of a dorsal column stimulator lead and generator. He reports about 50% relief of the trial for his low back and left lower extremity issues. Curiously, the numbness in the left leg went away with the trial. He did gain is much relief in the back as he did in the leg. Overall he thinks that the relief he did get was worthwhile and worth implantation of the device. He is here to discuss that as well as potential laminectomy at T10-11 for stenosis causing spinal cord compression. He still denies balance issues but does have pain. Review of Systems Review of Systems: Patient denies shortness of breath, cough, fever, chills, nausea, vomiting, weight loss, weight gain, chest pain, dysuria. He has back and leg pain, numbness and weakness as stated elsewhere. His review of systems is otherwise negative on 12 systems except as noted elsewhere. [facility] Past Medical History Medical History Stage 3b chronic kidney disease BUN 27, creatinine 1.70, GFR 40 11/14/2022. BUN 27, creatinine 1.8, GFR 37 on 04/19/2023. BUN 33, creatinine 1.63 with GFR 43 on 07/24/2023. BUN 34, creatinine 2.0 with GFR 33 on 11/17/2023. BUN 28, creatinine 2.20 with GFR 30 on 06/28/2024. Stage 3a chronic kidney disease BUN 27, creatinine 1.70, GFR 40 11/14/2022. BUN 27, creatinine 1.8, GFR 37 on 04/19/2023. BUN 33, creatinine 1.63 with GFR 43 on 07/24/2023. BUN 34, creatinine 2.0 with GFR 33 on 11/17/2023. BUN 28, creatinine 2.20 with GFR 30 on 06/28/2024. Failure of spinal cord stimulator Tinea cruris (~11/27/23) Lower extremity edema Acute kidney failure At high risk for falls (~11/24/22) Encounter for prostate cancer screening PSA 0.4 on 11/14/2022. BMI 39.0-39.9,adult FHx: cholecystectomy BMI 38.0-38.9,adult Obesity (BMI 30-39.9) COVID-19 (~12/2021) fully vaccinated and moderate symptoms Encounter for hepatitis C screening test for low risk patient Screening was negative on 11/14/2022. GERD with esophagitis (03/17/22) esophagitis on EGD 03/17/2022. Nonerosive reflux disease on EGD 05/05/2022. Gastritis (03/17/22) EGD on 03/17/2022 with gastritis and ulcerations . EGD on 05/05/2022 with nonerosive reflux with no gastritis or ulcerations. Duodenal ulcer disease (03/17/22) EGD with duodenal ulcers 03/17/2022. No ulcerations on EGD 05/05/2022. Abscess of skin or subcutaneous tissue (~01/29/22) Left buttocks midline Iron deficiency anemia, unspecified (12/13/21) are low at 43 with 16% saturation and ferritin 32 with hemoglobin 12.0 on 12/13/2021. iron 59 with 22% saturation and ferritin 34 on 04/05/2022. Iron 88 with 28% saturation and ferritin 40.9 on 11/14/2022. Hemoglobin 9.2 on 01/09/2023. Eighty, 28% saturation, ferritin 39.30 with hemoglobin 12.3 on 11/17/2023. Iron 70 with 21% saturation and ferritin 32.5 with hemoglobin 13.8 on 06/28/2024. Cyanosis bilateral feet . Arterial Doppler study of the lower extremities 11/24/2021 was normal. Nonpalpable pulse bilateral feet . Arterial Doppler 11/24/2021 of the lower extremities was normal. Anemia (11/03/21) hemoglobin 11.4 on 11/03/2021. hemoglobin 12.0 with iron 43, 60% saturation and ferritin 32 but 12/13/2021. Edema of both lower legs due to peripheral venous insufficiency Morbid obesity with BMI of 40.0-44.9, adult Chronic kidney disease (CKD) stage G3b/A1, moderately decreased glomerular filtration rate (GFR) between 30-44 mL/min/1.73 square meter and albuminuria creatinine ratio less than 30 mg/g BUN 20 day with creatinine 1.93 with GFR 35, decreased from 39 on 12/13/2021. BUN 33, creatinine 1.88 with GFR 38 on 04/05/2022. Worsening renal function Right elbow pain Open-angle glaucoma of both eyes followed by physician vice president with last appointment 02/09/2021 Screening for diabetic retinopathy dilated eye exam on 02/09/2021 reveals no retinopathy . Recheck in 1 year. No retinopathy on 02/08/2023. Cataracts noted. No retinopathy on 08/24/2023. no retinopathy on 07/23/2024. Microscopic hematuria Actinic keratosis Insomnia Chronic depression Vitamin D deficiency, unspecified Level normal at 36 on 09/09/2022 with level low at 16 on 11/14/2022. Normal at 33.2 on 07/24/2023. level low at 10 on 11/17/2023. Vitamin B12 deficiency anemia Level normal at 865 with folic acid 7.5 and hemoglobin 12.1 on 11/14/2022. Greater than 1000 on 11/17/2023. Body mass index (BMI) 40.0-44.9, adult (03/04/19) Chronic left shoulder pain resolved with total reverse shoulder surgery 05/10/2022. Acute pharyngitis Acute sinusitis Cholecystectomy planned Hypertension Hypercholesterolemia Diabetic neuropathy Diabetes Surgical History Surgical History Previous back surgery H/O shoulder surgery Family History Family History Father Family history of lung cancer, Onset Age: 80 Mother Family history of congestive heart failure, Onset Age: 90 Social History Social History Social History: Caffeine-soda/tea Smoking status: Never smoker Second hand tobacco smoke exposure: Yes Alcohol intake: former Drinks per week: 0 Substance use: never Substance use type: does not use Do You Feel Safe in your Home?: Yes Lack of Transportation: No Lack of Food: Never True Current Housing: I Have Housing Concerned About Future Housing: No Difficulty Paying Gas/Electric Bills: No Difficulty Paying for Meds: No Currently Unemployed: No Education: High School Diploma/GED Difficulty w/ Childcare or Family Care: No Living arrangements: with family Additional living arrangements comments: JR Gender identity (if verbalized by the patient): Male Spiritual care concerns: No Meds Home Medications and Allergies Home Medications ?Medication ?Instructions ?Recorded ?Confirmed ?Type ferrous sulfate 324 mg (65 mg 324 mg PO DAILY 04/26/22 08/27/24 History iron) tablet,delayed release latanoprost 0.005 % eye drops 1 drp ophthalmic (eye) HS 04/26/22 08/27/24 History dorzolamide 22.3 mg-timolol 6.8 1 drp EACH EYE BID 09/15/22 08/27/24 History mg/mL eye drops cyanocobalamin (vitamin B-12) 2,000 mcg PO DAILY 11/24/22 08/27/24 History 1,000 mcg tablet dapagliflozin propanediol 10 mg 5 mg PO .-W-08/02/23 08/27/24 History tablet (Farxiga) amitriptyline 10 mg tablet 20 mg (2 x 10 mg) PO . q.h.s. #180 10/10/23 08/14/24 Rx tabs cholecalciferol (vitamin D3) 50 2,000 unit PO DAILY 11/27/23 08/27/24 History mcg (2,000 unit) tablet metformin 1,000 mg tablet 1,000 mg PO BID #180 tabs 01/05/24 08/27/24 Rx atorvastatin 20 mg tablet 20 mg PO . Q.a.m. #90 tabs 02/05/24 08/27/24 Rx lisinopril 40 mg tablet 40 mg PO DAILY #90 tabs 03/19/24 08/27/24 Rx duloxetine 60 mg capsule,delayed 60 mg PO BID #180 caps 04/01/24 08/27/24 Rx release pantoprazole 40 mg tablet,delayed 40 mg PO QAM #90 tabs 07/08/24 08/27/24 Rx release acetaminophen 500 mg capsule 1,000 mg PO Q6H PRN pain 08/12/24 08/14/24 History nystatin 100,000 unit/gram topical 1 applic topical BID PRN skin 08/12/24 08/27/24 History powder irritation Allergies Allergy/AdvReac Type Severity Reaction Status Date / Time chlorhexidine AdvReac Severe Itching Verified 08/14/24 07:49 Vital Signs Vital Signs - 24 hr 08/27/24 11:57 08/27/24 12:14 Temperature 97.2 F L Pulse Rate 69 Blood Pressure 194/103 H 173/84 H Pulse Oximetry 97 Oxygen Delivery Room Air Exam Narrative: Strength was normal in the bilateral lower extremities to direct confrontation. Sensation is intact to light touch throughout the lower extremities. Gait, Station transfers are independent. Assessment and Plan Assessment and plan (1) Thoracic spinal stenosis: Code(s): M48.04 - Spinal stenosis, thoracic region Status: Acute (2) Lumbar spondylosis: Code(s): M47.816 - Spondylosis without myelopathy or radiculopathy, lumbar region Status: Acute Plan Abhinav is a 69-year-old gentleman with back pain and left lower extremity tingling and numbness which benefited from a dorsal column stimulator trial. He has stenosis at T10-11 causing spinal cord compression. I have recommended him a T10-11 laminectomy and placement of a dorsal column stimulator at the same time and described to him that operation, its risks, potential benefits, the operative and postoperative course in detail answered all his questions personally. We discussed risks including but not limited to permanent neurologic deficit secondary to spinal cord or nerve root injury, need for reoperation secondary to infection, bleeding, CSF leak, adjacent level disease, recurrent residual pathology or instability, failure of the procedure to relieve his pain or symptoms, persistent pain, medical complications related anesthesia or surgery, etc.. We specifically discussed the potential complications of hematoma requiring reoperation resulting in a severe neurologic deficit which could be permanent, migration of the device requiring its revision or replacement, and infection of the device requiring its removal and later reimplantation. he indicates understanding and elects to proceed with that operation.
--- NOTE | 2024-08-27 14:12 | WPDHPUPDATE1 ---
History and Physical Update Update Date/Time: 08/27/24 14:12 History and Physical has been reviewed, including an updated exam of the patient. There are NO changes in the patient's condition. Risks, benefits, and alternatives have been discussed and questions answered. Patient agrees to proceed with procedure.
--- NOTE | 2024-08-27 14:13 | WPDHPUPDATE1 ---
History and Physical Update Update Date/Time: 08/27/24 14:13 History and Physical has been reviewed, including an updated exam of the patient. There are NO changes in the patient's condition. Risks, benefits, and alternatives have been discussed and questions answered. Patient agrees to proceed with procedure.
[2024-08-27] MEDS: LIDO 1%/EPINEPHRINE 1:100,000 20 ML VIAL 10 ML INFILTRATE (14:45)
[2024-08-27] MEDS: VANCOMYCIN HCL 1,000 MG VIAL 1000 MG TOPICAL (14:45)
[2024-08-27 15:53] LABS: Glucose Point of Care 172 mg/dl (65-105)
[2024-08-27] MEDS: fentaNYL CITRATE INJ (*CRX) 100 MCG/2 ML VIAL 25 MCG IV PUSH ×8 (16:07→16:36)
[2024-08-27] MEDS: HYDROmorphone HCL INJ (*CRX) 1 MG/ML SYR 0.5 MG IV PUSH ×2 (16:40→16:45)
[2024-08-27] MEDS: ONDANSETRON INJ 4 MG/2 ML VIAL IV PUSH (17:07)
--- NOTE | 2024-08-27 18:25 | ADMGEN ---
This patient, Abhinav Moore, was admitted to [facility] Room 311-01. Patient/family oriented to hospital policies and general routines including ID bracelet, bed and alarms, visiting hours, pain management, procedures, bathroom and other care routines, personal items, smoking policy, room service/diet, and visiting hours. Information on how to activate the Rapid Response Team has been discussed. Patient/Family are encouraged to report perceived risks to care and to ask questions if they do not understand what they are told or what they should do.
[2024-08-27 21:02] LABS: Glucose Point of Care 227 mg/dl (65-105)
[2024-08-27] MEDS: HYDROcodone/acetaminophen (*CRX) 5-325 MG TABLET 1 TAB PO (21:45)
[2024-08-27] MEDS: AMITRIPTYLINE HCL 10 MG TABLET PO (21:46)
--- NOTE | 2024-08-27 22:27 | P.OP_ITS ---
Procedure Note - Detailed Date of Procedure 08/27/24 Pre-op Diagnosis T10-11 stenosis, chronic back & leg pain Post-op Diagnosis Same Procedure Performed T10-11 laminectomy, placement of dorsal column stimulator lead and generator Surgeon Alo Diana MD Anesthesia General Description of Procedure patient was brought to the operating room in the supine position, was sedated, intubated and placed under general anesthesia in routine fashion. He was then turned into the prone position on a Marcio frame. The operation his back was examined, marked for incision, prepped and draped in routine sterile fashion. Incision was marked over the T9 through 11 spinous processes in the midline and transversely in the left flank. These areas were injected with 0.5% lidocaine with 1 200,000 epinephrine. Intravenous antibiotics given prior to incision. Incision was made with a 10 blade scalpel and both locations. A subperiosteal dissection of the muscle soft tissue away from spinous process and lamina was performed with a subperiosteal elevator and Bovie cautery. A verifying x-rays obtained to verify level of operation. At the flank pocket was created 1 cm deep in the tissues and curved Milton scissors and toothed forceps. Bleeding was stopped with bipolar cautery. A T10 and T11 the spinous processes were removed with a Marilin rongeur. The lamina was thinned in the midline using a Midas Cornelio drill. Kerrison punches and curved curettes were used to define a plane with the dura and removed bone and ligament. This was done 1st superiorly and then inferiorly until no more compression on the thecal sac was noted. At T8-9 laminectomy was performed using Kerrison punches, curved curettes and a Leksell rongeur until a short wide area the dura was uncovered. The dorsal epidural space was cannulated with the lead trial. Lead was then placed into the dorsal epidural space until it was confirmed to be behind the T7 and T8 vertebral bodies in the midline. An anchor was attached to 1 of the wires which was attached to the superior spinous process using a 3-0 Prolene suture. Tensi on relief loops were placed into both of the wires which were then buried the flank incision. Here they were inserted into the generator slots and secured there using the small screwdriver for that purpose. Impedance testing was carried out to confirm good connectivity which was confirmed. The wounds were copiously irrigated with bacitracin irrigation all bleeding stopped with bipolar and Bovie cautery and Gelfoam thrombin powder. The generator was then placed in the pocket with excess wire coiled up underneath it and with vancomycin impregnated pellets around the device. The wounds were then closed with 2-0 Vicryl interrupted sutures in the thoracic fascia and Calin's layer. Both incisions were closed with 3-0 Vicryl buried interrupted sutures in the dermis and a running 4-0 Monocryl subcuticular stitch in the skin and were dressed with Dermabond. The patient was allowed to wake up in the operating room and was taken to the recovery room in stable condition. There were no immediate complications of this operation. All counts were reported correct at the end of the case. Blood loss was 25 cc. The patient was neurologically at his baseline postoperatively. Estimated Blood Loss 25 Complications None Condition Stable Disposition PACU [facility] Billing Surgery - Charge Forward: Surgery Billing
[2024-08-27] MEDS: CYCLOBENZAPRINE HCL 10 MG TABLET PO (23:55)
[2024-08-28] VITALS (8 sets, daily range): BP systolic 135–198; BP diastolic 73–100; PULSE 78–84; RESP 18–20; TEMP 36.7–37.1; O2SAT 98–100
--- NOTE | ~2024-08-28 | XR_ITS ---
INTRAOPERATIVE FLUOROSCOPY: CLINICAL HISTORY: 69 years old Male; THORACIC LAMINECTOMY PROCEDURE COMMENTS: Limited intraoperative fluoroscopy of the thoracic spine was performed. CUMULATIVE DOSE: 21 mGy FLUOROSCOPY TIME: 28 seconds FINDINGS/IMPRESSION: Please refer to operative note for further details. Reviewed, dictated and finalized at location A. [employer]
[2024-08-28] MEDS: hydrALAZINE HCL 20 MG/ML VIAL 10 MG IV PUSH (04:55)
[2024-08-28 07:51] LABS: Glucose Point of Care 200 mg/dl (65-105)
[2024-08-28] MEDS: metFORMIN HCL 500 MG TABLET 1000 MG PO ×2 (08:55→17:46)
[2024-08-28] MEDS: DOCUSATE SODIUM 100 MG CAPSULE PO (08:55)
[2024-08-28] MEDS: lisinopriL 20 MG TABLET 40 MG PO (08:55)
[2024-08-28] MEDS: ATORVASTATIN 20 MG TABLET PO (08:55)
[2024-08-28] MEDS: DULoxetine HCL 60 MG CAPSULE.DR PO ×2 (08:55→17:46)
[2024-08-28] MEDS: EMPAGLIFLOZIN 10 MG TABLET BY MOUTH (08:55)
[2024-08-28] MEDS: HYDROcodone/acetaminophen (*CRX) 5-325 MG TABLET 1 TAB PO ×2 (11:39→17:46)
[2024-08-28 11:47] LABS: Glucose Point of Care 221 mg/dl (65-105)
--- NOTE | 2024-08-28 12:27 | PM.IMCN ---
Assessment and Plan Assessment and plan (1) Lumbar spondylosis: Code(s): M47.816 - Spondylosis without myelopathy or radiculopathy, lumbar region Status: Acute Assessment and Plan: - primary management through neuro surgical team, s/p T10/11 laminectomy, placement dorsal column stimulator lead and generator on 08/28 with Lebron CASTLE - ambulate with assistance and up to chair - use IS - neurovasc checks - see order for intervals - SCDs - Dulcolax p.r.n. - analgesics and antiemetics p.r.n. - PT/OT (2) Thoracic spinal stenosis: Code(s): M48.04 - Spinal stenosis, thoracic region Status: Acute Assessment and Plan: - see above (3) Type 2 diabetes mellitus without complication, without long-term current use of insulin: Code(s): E11.9 - Type 2 diabetes mellitus without complications Status: Chronic Assessment and Plan: - hypoglycemia protocol - POC blood glucose ACHS - home medication: Farxiga 10 mg daily, metformin 1G b.i.d. - correct regimen ordered - low dose TIDWM, based off TDD - A1C 7.1% on 06/28/2024 (4) Iron deficiency anemia: Qualifiers: Iron deficiency anemia type: unspecified iron deficiency Qualified Code(s): D50.9 - Iron deficiency anemia, unspecified Code(s): D50.9 - Iron deficiency anemia, unspecified Status: Acute Assessment and Plan: - concurrent B12 deficiency anemia - hold supplements while inpatient - monitor hemoglobin (5) Chronic kidney disease, stage IV (severe): Code(s): N18.4 - Chronic kidney disease, stage 4 (severe) Status: Chronic Assessment and Plan: - creatinine 2.29 and GFR 28 on 08/01/2024, previously 2.2 and GFR 30 on 06/28/2024 - trend renal function - trend electrolytes, correct as needed (6) Primary hypertension: Code(s): I10 - Essential (primary) hypertension Status: Chronic Assessment and Plan: - chronic, currently 150/76 - continue home medications: Lisinopril 40 mg daily - monitor Plan Diet: Regular GI Prophylaxis: Not currently indicated DVT Prophylaxis: SCDs Lines: Peripheral Code Status: Full code HPI Date of Consult Consult date: 08/28/24 Requesting Physician: Alo Diana MD Primary Care Provider: Andre Ontiveros MD Consult Narrative Reason for consult: Medical Management Narrative: 69 y/o M presents here for a 11 laminectomy and insertion of a dorsal column stimulator lead and generator with PMH of CKD, iron deficiency anemia, vitamin-D deficiency, vitamin B12 deficiency, hypertension, HLD, and diabetes. The patient previously underwent a trial of the spine stimulator and reported 50% relief of his low back pain and left lower extremity symptoms including numbness to his left lower extremity. He underwent surgery on 08/27. Postoperatively he reports mild nausea yesterday which has since resolved and his LLE is having some significant pain. Reports decreased pain in his lower back. Stimulator was then turned off after he reported some sharp shooting pains in his LLE. He denies any recent changes to his medical history or home medications. Preop VS: 97.6? F, HR 64, RR 16, 151/78, and 100% on RA. Preop workup: WBC 11.0, hemoglobin 12.5, normal coags, sodium 136 6, creatinine 2.29 and GFR 28 (previously 2.2 and GFR 30 on 06/28/2024), and A1c 7.1% on 06/28/2024. T-spine MRI showed myelomalacia at T10-T11 and T11-T12 and moderate thoracic spondylosis, worst at T10-T11 on 02/2024. Review of Systems Review of Systems: All systems reviewed & are unremarkable except as noted in HPI and below PMFSH Past Medical History Medical History Chronic kidney disease, stage IV (severe) Vitamin D deficiency, unspecified Level normal at 36 on 09/09/2022 with level low at 16 on 11/14/2022. Normal at 33.2 on 07/24/2023. level low at 10 on 11/17/2023. Secondary renal hyperparathyroidism PTH 62 on 09/09/2022. PTH 74.2 with vitamin D 33.2 on 07/24/2023. Failure of spinal cord stimulator Tinea cruris (~11/27/23) At high risk for falls (~11/24/22) Encounter for prostate cancer screening PSA 0.4 on 11/14/2022. FHx: cholecystectomy COVID-19 (~12/2021) fully vaccinated and moderate symptoms Encounter for hepatitis C screening test for low risk patient Screening was negative on 11/14/2022. GERD with esophagitis (03/17/22) esophagitis on EGD 03/17/2022. Nonerosive reflux disease on EGD 05/05/2022. Gastritis (03/17/22) EGD on 03/17/2022 with gastritis and ulcerations . EGD on 05/05/2022 with nonerosive reflux with no gastritis or ulcerations. Duodenal ulcer disease (03/17/22) EGD with duodenal ulcers 03/17/2022. No ulcerations on EGD 05/05/2022. Abscess of skin or subcutaneous tissue (~01/29/22) Left buttocks midline Iron deficiency anemia, unspecified (12/13/21) are low at 43 with 16% saturation and ferritin 32 with hemoglobin 12.0 on 12/13/2021. iron 59 with 22% saturation and ferritin 34 on 04/05/2022. Iron 88 with 28% saturation and ferritin 40.9 on 11/14/2022. Hemoglobin 9.2 on 01/09/2023. Eighty, 28% saturation, ferritin 39.30 with hemoglobin 12.3 on 11/17/2023. Iron 70 with 21% saturation and ferritin 32.5 with hemoglobin 13.8 on 06/28/2024. Cyanosis bilateral feet . Arterial Doppler study of the lower extremities 11/24/2021 was normal. Nonpalpable pulse bilateral feet . Arterial Doppler 11/24/2021 of the lower extremities was normal. Anemia (11/03/21) hemoglobin 11.4 on 11/03/2021. hemoglobin 12.0 with iron 43, 60% saturation and ferritin 32 but 12/13/2021. Edema of both lower legs due to peripheral venous insufficiency Morbid obesity with BMI of 40.0-44.9, adult Open-angle glaucoma of both eyes followed by eligibility technician with last appointment 02/09/2021 Screening for diabetic retinopathy dilated eye exam on 02/09/2021 reveals no retinopathy . Recheck in 1 year. No retinopathy on 02/08/2023. Cataracts noted. No retinopathy on 08/24/2023. no retinopathy on 07/23/2024. Microscopic hematuria Actinic keratosis Insomnia Chronic depression Vitamin B12 deficiency anemia Level normal at 865 with folic acid 7.5 and hemoglobin 12.1 on 11/14/2022. Greater than 1000 on 11/17/2023. Chronic left shoulder pain resolved with total reverse shoulder surgery 05/10/2022. Hypertension Hypercholesterolemia Diabetic neuropathy Diabetes Surgical History Surgical History Previous back surgery H/O shoulder surgery Family History Family History Father Family history of lung cancer, Onset Age: 80 Mother Family history of congestive heart failure, Onset Age: 90 Social History Social History Social History: Caffeine-soda/tea Smoking status: Never smoker Second hand tobacco smoke exposure: Yes Alcohol intake: former Drinks per week: 0 Substance use: never Substance use type: does not use Do You Feel Safe in your Home?: Yes Lack of Transportation: No Lack of Food: Never True Current Housing: I Have Housing Concerned About Future Housing: No Difficulty Paying Gas/Electric Bills: No Difficulty Paying for Meds: No Currently Unemployed: No Education: High School Diploma/GED Difficulty w/ Childcare or Family Care: No Living arrangements: with family Additional living arrangements comments: JR Gender identity (if verbalized by the patient): Male Spiritual care concerns: No Meds Home Medications and Allergies Home Medications ?Medication ?Instructions ?Recorded ?Confirmed ?Type ferrous sulfate 324 mg (65 mg 324 mg PO DAILY 04/26/22 08/27/24 History iron) tablet,delayed release latanoprost 0.005 % eye drops 1 drp ophthalmic (eye) HS 04/26/22 08/27/24 History dorzolamide 22.3 mg-timolol 6.8 1 drp EACH EYE BID 09/15/22 08/27/24 History mg/mL eye drops cyanocobalamin (vitamin B-12) 2,000 mcg PO DAILY 11/24/22 08/27/24 History 1,000 mcg tablet dapagliflozin propanediol 10 mg 5 mg PO .M-W-F 08/02/23 08/27/24 History tablet (Farxiga) amitriptyline 10 mg tablet 20 mg (2 x 10 mg) PO . q.h.s. #180 10/10/23 08/14/24 Rx tabs cholecalciferol (vitamin D3) 50 2,000 unit PO DAILY 11/27/23 08/27/24 History mcg (2,000 unit) tablet metformin 1,000 mg tablet 1,000 mg PO BID #180 tabs 01/05/24 08/27/24 Rx atorvastatin 20 mg tablet 20 mg PO . Q.a.m. #90 tabs 02/05/24 08/27/24 Rx lisinopril 40 mg tablet 40 mg PO DAILY #90 tabs 03/19/24 08/27/24 Rx duloxetine 60 mg capsule,delayed 60 mg PO BID #180 caps 04/01/24 08/27/24 Rx release pantoprazole 40 mg tablet,delayed 40 mg PO QAM #90 tabs 07/08/24 08/27/24 Rx release acetaminophen 500 mg capsule 1,000 mg PO Q6H PRN pain 08/12/24 08/14/24 History nystatin 100,000 unit/gram topical 1 applic topical BID PRN skin 08/12/24 08/27/24 History powder irritation Allergies Allergy/AdvReac Type Severity Reaction Status Date / Time chlorhexidine AdvReac Severe Itching Verified 08/14/24 07:49 Vital Signs Vital Signs - 24 hr 08/27/24 15:47 08/27/24 16:00 08/27/24 16:15 Temperature 98.1 F Pulse Rate 54 L 58 L 64 Respiratory Rate 16 20 16 Blood Pressure 109/65 132/80 156/93 H Pulse Oximetry 99 100 93 Oxygen Delivery Simple Face Mask Simple Face Mask Room Air Oxygen Flow Rate 8 8 08/27/24 16:30 08/27/24 16:45 08/27/24 16:47 Temperature 98.4 F Pulse Rate 66 65 66 Respiratory Rate 16 16 18 Blood Pressure 168/67 H 156/73 H 169/87 H Pulse Oximetry 93 94 93 Oxygen Delivery Room Air Room Air Oxygen Flow Rate 08/27/24 17:02 08/27/24 17:17 08/27/24 17:32 Temperature 98.4 F 98.4 F 97.8 F Pulse Rate 65 65 69 Respiratory Rate 20 20 20 Blood Pressure 178/93 H 178/93 H 161/88 H Pulse Oximetry 94 94 95 Oxygen Delivery Oxygen Flow Rate 08/27/24 19:47 08/27/24 23:37 08/28/24 00:30 Temperature 97.0 F L 97.5 F L Pulse Rate 63 72 Respiratory Rate 16 18 Blood Pressure 143/71 H 177/78 H 168/80 H Pulse Oximetry 98 97 Oxygen Delivery Oxygen Flow Rate 08/28/24 03:47 08/28/24 04:32 08/28/24 06:22 Temperature 98.0 F Pulse Rate 84 Respiratory Rate 18 Blood Pressure 198/100 H 198/100 H 180/89 H Pulse Oximetry 98 Oxygen Delivery Oxygen Flow Rate 08/28/24 07:47 08/28/24 08:41 Temperature 98.8 F Pulse Rate 82 Respiratory Rate 20 Blood Pressure 184/81 H Pulse Oximetry 100 Oxygen Delivery Room Air Oxygen Flow Rate Exam Const: General: comfortable and no acute distress Other: , male, obese body habitus, nontoxic appearance HENMT: Face/Nose/Sinus: Normal nares present Mouth: Yes moist mucous membranes Eyes: General: appearance normal, both eyes and all related structures Sclera: sclerae normal Pupils: Equal, round and reactive pupils present EOM: EOMs intact bilaterally Resp: Effort & Inspection: normal respiratory effort Auscultation: clear to auscultation bilaterally Cardio: Rate: regular rate Rhythm: regular rhythm Other: S1-S2 present without murmur, rub, ectopy GI: Other: Abdomen rounded, slightly firm, nontender. Normoactive bowel sounds in all quadrants. Skin: General skin exam: normal color and no rashes or lesions noted Other: Postoperative incision to mid back. Glue intact. No erythema or drainage. No signs of infection. Neuro: Speech: normal speech Motor exam (neuro): 5/5 motor strength present throughout Sensory Exam: normal sensation Other: A&O x4 Extrem: Other: Trace edema to bilateral ankles, symmetric Psych: Mental Status: mental status grossly normal Affect: normal affect Quality VTE Prophylaxis VTE prophylaxis: mechanical ordered Hospitalist MIPS Advance Care Plan I have confirmed that the patient's Advanced Care Plan is present, code status is documented, or surrogate decision maker is listed in patient medical record.: Yes Medication Reconciliation I have utilized all available resources to obtain, update and review the patients current medications (includes all prescriptions, OTC, herbals, cannabis, and nutritional supplements).: Yes
[2024-08-28] MEDS: INSULIN ASPART (*BKC) 100 UNITS/ML SUB-Q (12:30)
[2024-08-28 17:10] LABS: Glucose Point of Care 196 mg/dl (65-105)
[2024-08-28] MEDS: DORZOLAMIDE/TIMOLOL OPHTH SOL 10 ML BOTTLE 1 DROP EACH EYE (17:47)
[2024-08-28 20:50] LABS: Glucose Point of Care 228 mg/dl (65-105)
[2024-08-28] MEDS: AMITRIPTYLINE HCL 10 MG TABLET 20 MG PO (20:59)
--- NOTE | 2024-08-28 21:00 | WPDNEUROSGPN ---
Progress Note: A&P Assessment and Plan (1) Chronic bilateral low back pain with bilateral sciatica: Code(s): M54.42 - Lumbago with sciatica, left side; M54.41 - Lumbago with sciatica, right side; G89.29 - Other chronic pain Status: Acute Assessment and Plan: Abhinav is doing well. Postop day 1 status post T10-11 laminectomy and placed in a dorsal column stimulator lead and generator. We will likely be able to discharge in the morning. Subjective Date/time seen: 08/28/24 21:00 Interval history: Abhinav is postop day 1 status post T10-11 laminectomy and placement of dorsal column stimulator lead and generator. He is doing well. He is starting to make transfers and ambulate independently. Pain medicine seems to be working. He does not have any new issues in his lower extremities. Exam Narrative: Strength is normal the bilateral lower extremities. Sensation is intact to light touch in lower extremities His wound is clean, dry and intact. Objective Data Vital Signs Vital Signs: Vital Signs - 24 hr 08/27/24 23:37 08/28/24 00:30 08/28/24 03:47 Temperature 97.5 F L 98.0 F Pulse Rate 72 84 Respiratory Rate 18 18 Blood Pressure 177/78 H 168/80 H 198/100 H Pulse Oximetry 97 98 Oxygen Delivery 08/28/24 04:32 08/28/24 06:22 08/28/24 07:47 Temperature 98.8 F Pulse Rate 82 Respiratory Rate 20 Blood Pressure 198/100 H 180/89 H 184/81 H Pulse Oximetry 100 Oxygen Delivery 08/28/24 08:00 08/28/24 08:41 08/28/24 11:47 Temperature 98.3 F Pulse Rate 79 Respiratory Rate 20 Blood Pressure 150/76 H Pulse Oximetry 100 Oxygen Delivery Room Air Room Air 08/28/24 15:47 08/28/24 19:47 Temperature 98.7 F 98.4 F Pulse Rate 80 78 Respiratory Rate 20 18 Blood Pressure 135/84 135/73 Pulse Oximetry 99 98 Oxygen Delivery Intake/Output Intake/Output: Intake & Output 08/25/24 08/26/24 08/27/24 08/28/24 23:59 23:59 23:59 23:59 Intake Total 300 2120 Output Total 700 600 Balance -400 1520 Meds/Results Medications: Active Medications Generic Name Dose Route Start Last Admin Trade Name Freq PRN Reason Stop Dose Admin Hydrocodone Bitart/Acetaminophen 1 tab 08/27/24 16:47 08/28/24 17:46 Hydrocodone/Acetaminophen (*Crx) 5-325 Mg Tablet PO 1 tab Q4H PRN Administration Mild Pain (1-3) Hydrocodone Bitart/Acetaminophen 1 tab 08/27/24 16:47 Hydrocodone/Acetaminophen (*Crx) 10-325 Mg Tablet PO Q4H PRN Moderate Pain (4-6) Al Hydrox/Mg Hydrox/Simethicone 20 ml 08/27/24 16:47 Mag Hydrox/Al Hydrox/Simeth 30 Ml Udc PO Q4H PRN Indigestion/Heartburn Amitriptyline HCl 20 mg 08/28/24 21:00 Amitriptyline Hcl 10 Mg Tablet PO HS NERISSA Atorvastatin Calcium 20 mg 08/28/24 09:00 08/28/24 08:55 Atorvastatin 20 Mg Tablet PO 20 mg DAILY NERISSA Administration Bisacodyl 10 mg 08/27/24 16:47 Bisacodyl 10 Mg Suppository RECTAL DAILY PRN Constipation Cyclobenzaprine HCl 10 mg 08/27/24 16:47 08/27/24 23:55 Cyclobenzaprine Hcl 10 Mg Tablet PO 10 mg TID PRN Administration Muscle Spasms Dextrose 12.5 gm 08/27/24 22:03 Dextrose 50% 25 Gm/50 Ml Syringe IV PUSH PRN PRN Hypoglycemia Protocol Docusate Sodium 100 mg 08/27/24 21:00 08/28/24 08:55 Docusate Sodium 100 Mg Capsule PO 100 mg Q12HR NERISSA Administration Dorzolamide/Timolol 1 drop 08/28/24 17:00 08/28/24 17:47 Dorzolamide/Timolol Ophth Lily 10 Ml Bottle EACH EYE 1 drop BID NERISSA Administration Duloxetine HCl 60 mg 08/28/24 17:00 08/28/24 17:46 Duloxetine Hcl 60 Mg Capsule.Dr PO 60 mg BID NERISSA Administration Empagliflozin 5 mg 08/30/24 09:00 Empagliflozin 5 Mg Tablet BY MOUTH MoWeFr NERISSA Glucagon 1 mg 08/27/24 22:03 Glucagon For Inj 1 Mg Vial IM PRN PRN Hypoglycemia Protocol Glucose 15 gm 08/27/24 22:03 Glucose Oral Gel 15 Gm Of Glucse In 37.5 Gm Tube PO PRN PRN Hypoglycemia Protocol Dextrose 1,000 mls @ 100 mls/hr 08/27/24 22:03 Dextrose 5% 1,000 Ml IVPB PRN PRN Hypoglycemia Protocol Insulin Aspart 0 units 08/28/24 08:00 08/28/24 17:30 Insulin Aspart (*Bkc) 100 Units/Ml SUB-Q Not Given TIDWM NERISSA Protocol Latanoprost 1 drop 08/28/24 21:00 Latanoprost 0.005% Op Soln 2.5 Ml Btl EACH EYE HS NERISSA Lisinopril 40 mg 08/28/24 09:00 08/28/24 08:55 Lisinopril 20 Mg Tablet PO 40 mg QAM NERISSA Administration Metformin HCl 1,000 mg 08/28/24 08:00 08/28/24 17:46 Metformin Hcl 500 Mg Tablet PO 1,000 mg BIDWM NERISSA Administration Miscellaneous Information 1 each 08/28/24 00:01 Nystatin Powder Nonformulary. Therapeutic Sub Is Tolnaftate Powder. Tolnaftate Not Stocked XX 08/28/24 23:59 CLARIFY NERISSA Morphine Sulfate 2 mg 08/27/24 16:47 Morphine Sulfate (*Crx) 2 Mg/Ml Inj IV PUSH Q2H PRN Pain Rated 7-10 Ondansetron HCl 4 mg 08/27/24 16:47 08/27/24 17:07 Ondansetron Inj 4 Mg/2 Ml Vial IV PUSH 4 mg Q8H PRN Administration Nausea And Vomiting Pantoprazole Sodium 40 mg 08/29/24 09:00 Pantoprazole 40 Mg Tablet PO QAM NERISSA Senna/Docusate Sodium 1 tab 08/27/24 16:47 Senna/Docusate Sodium Tablet PO HS PRN Constipation Labs Labs: Laboratory Results - last 24 hr 08/27/24 08/28/24 08/28/24 19:52 07:34 11:37 POC Capillary Glucose 227 H 200 H 221 H 08/28/24 08/28/24 17:01 19:55 POC Capillary Glucose 196 H 228 H
[2024-08-29 05:25] VITALS: BP 151/82; PULSE 74; RESP 18; TEMP 37.2; O2SAT 96
[2024-08-29 07:49] LABS: Glucose Point of Care 145 mg/dl (65-105)
[2024-08-29 08:00] VITALS: O2SAT 96
[2024-08-29] MEDS: ATORVASTATIN 20 MG TABLET PO (09:07)
[2024-08-29] MEDS: lisinopriL 20 MG TABLET 40 MG PO (09:07)
[2024-08-29] MEDS: DULoxetine HCL 60 MG CAPSULE.DR PO (09:07)
[2024-08-29] MEDS: DOCUSATE SODIUM 100 MG CAPSULE PO (09:07)
[2024-08-29] MEDS: PANTOPRAZOLE 40 MG TABLET PO (09:08)
[2024-08-29] MEDS: metFORMIN HCL 500 MG TABLET 1000 MG PO (09:08)
[2024-08-29 11:25] LABS: Glucose Point of Care 205 mg/dl (65-105)
--- NOTE | 2024-08-29 11:51 | PM.IMPN ---
Subjective Date/time seen: 08/29/24 11:51 Objective Data Vital Signs Vital Signs: Vital Signs - 24 hr 08/28/24 15:47 08/28/24 19:47 08/29/24 05:25 Temperature 37.1 C 36.9 C 37.2 C Pulse Rate 80 78 74 Respiratory Rate 20 18 18 Blood Pressure 135/84 135/73 151/82 H Pulse Oximetry 99 98 96 Oxygen Delivery 08/29/24 08:00 Temperature Pulse Rate Respiratory Rate Blood Pressure Pulse Oximetry 96 Oxygen Delivery Room Air Intake/Output Intake/Output: Intake & Output 08/26/24 08/27/24 08/28/24 08/29/24 23:59 23:59 23:59 23:59 Intake Total 300 2120 540 Output Total 035 586 1677 Balance -400 1520 -860 Meds/Results Medications: Active Medications Generic Name Dose Route Start Last Admin Trade Name Freq PRN Reason Stop Dose Admin Hydrocodone Bitart/Acetaminophen 1 tab 08/27/24 16:47 08/28/24 17:46 Hydrocodone/Acetaminophen (*Crx) 5-325 Mg Tablet PO 1 tab Q4H PRN Administration Mild Pain (1-3) Hydrocodone Bitart/Acetaminophen 1 tab 08/27/24 16:47 Hydrocodone/Acetaminophen (*Crx) 10-325 Mg Tablet PO Q4H PRN Moderate Pain (4-6) Al Hydrox/Mg Hydrox/Simethicone 20 ml 08/27/24 16:47 Mag Hydrox/Al Hydrox/Simeth 30 Ml Udc PO Q4H PRN Indigestion/Heartburn Amitriptyline HCl 20 mg 08/28/24 21:00 08/28/24 20:59 Amitriptyline Hcl 10 Mg Tablet PO 20 mg HS NERISSA Administration Atorvastatin Calcium 20 mg 08/28/24 09:00 08/29/24 09:07 Atorvastatin 20 Mg Tablet PO 20 mg DAILY NERISSA Administration Bisacodyl 10 mg 08/27/24 16:47 Bisacodyl 10 Mg Suppository RECTAL DAILY PRN Constipation Cyclobenzaprine HCl 10 mg 08/27/24 16:47 08/27/24 23:55 Cyclobenzaprine Hcl 10 Mg Tablet PO 10 mg TID PRN Administration Muscle Spasms Dextrose 12.5 gm 08/27/24 22:03 Dextrose 50% 25 Gm/50 Ml Syringe IV PUSH PRN PRN Hypoglycemia Protocol Docusate Sodium 100 mg 08/27/24 21:00 08/29/24 09:07 Docusate Sodium 100 Mg Capsule PO 100 mg Q12HR NERISSA Administration Dorzolamide/Timolol 1 drop 08/28/24 17:00 08/29/24 09:13 Dorzolamide/Timolol Ophth Lily 10 Ml Bottle EACH EYE Not Given BID NERISSA Duloxetine HCl 60 mg 08/28/24 17:00 08/29/24 09:07 Duloxetine Hcl 60 Mg Capsule.Dr PO 60 mg BID NERISSA Administration Empagliflozin 5 mg 08/30/24 09:00 Empagliflozin 5 Mg Tablet BY MOUTH MoWeFr NERISSA Glucagon 1 mg 08/27/24 22:03 Glucagon For Inj 1 Mg Vial IM PRN PRN Hypoglycemia Protocol Glucose 15 gm 08/27/24 22:03 Glucose Oral Gel 15 Gm Of Glucse In 37.5 Gm Tube PO PRN PRN Hypoglycemia Protocol Dextrose 1,000 mls @ 100 mls/hr 08/27/24 22:03 Dextrose 5% 1,000 Ml IVPB PRN PRN Hypoglycemia Protocol Insulin Aspart 0 units 08/28/24 08:00 08/29/24 09:07 Insulin Aspart (*Bkc) 100 Units/Ml SUB-Q Not Given TIDWM [facility] Protocol Latanoprost 1 drop 08/28/24 21:00 08/28/24 21:02 Latanoprost 0.005% Op Soln 2.5 Ml Btl EACH EYE Not Given HS [facility] Lisinopril 40 mg 08/28/24 09:00 08/29/24 09:07 Lisinopril 20 Mg Tablet PO 40 mg QAM NERISSA Administration Metformin HCl 1,000 mg 08/28/24 08:00 08/29/24 09:08 Metformin Hcl 500 Mg Tablet PO 1,000 mg BIDWM NERISSA Administration Morphine Sulfate 2 mg 08/27/24 16:47 Morphine Sulfate (*Crx) 2 Mg/Ml Inj IV PUSH Q2H PRN Pain Rated 7-10 Ondansetron HCl 4 mg 08/27/24 16:47 08/27/24 17:07 Ondansetron Inj 4 Mg/2 Ml Vial IV PUSH 4 mg Q8H PRN Administration Nausea And Vomiting Pantoprazole Sodium 40 mg 08/29/24 09:00 03/06/25 09:08 Pantoprazole 40 Mg Tablet PO 40 mg QAM NERISSA Administration Senna/Docusate Sodium 1 tab 08/27/24 16:47 Senna/Docusate Sodium Tablet PO HS PRN Constipation Labs Labs: Laboratory Results - last 24 hr 08/28/24 08/28/24 08/29/24 17:01 19:55 07:41 POC Capillary Glucose 196 H 228 H 145 H 08/29/24 11:23 POC Capillary Glucose 205 H
[2024-08-29] MEDS: HYDROcodone/acetaminophen (*CRX) 5-325 MG TABLET 1 TAB PO (12:32)
--- NOTE | 2024-08-31 08:36 | P.DS_ITS ---
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 The patient went to the floor postoperatively. Physical and occupational therapy were involved in his care. They are issues with his blood pressure and the hospitalists were consulted. This stabilized. At the time of his discharge he was eating, ambulating, emptying his bladder in his pain was under control with by mouth pain medicine. His wounds remained clean, dry and intact. He was afebrile with stable vital signs. He was therefore allowed to be discharged to home. Status at Discharge Functional status at discharge: independent ambulation Time Spent with Patient Time attestation: Total time spent providing and/or coordinating discharge services: Discharge Plan Discharge Attending physician on discharge: Alo Diana Consulting providers: Manuela Clemente; Trina Ordoñez; Carlos Cheung; Carrie Prescott Discharging Clinician: Alo Diana Anticipated Discharge Date/Time: 08/29/24 09:41 Patient Disposition: Home, Self-Care Activity: may shower Diet: as tolerated Wound Care Instructions: follow printed instructions Discharge Instructions: INSTRUCTIONS AFTER YOUR LUMBAR LAMINECTOMY/DECOMPRESSION/FORAMINOTOMY/DISCECTOMY * Incisions may be closed with either: * Steri-strips (let them wear off on their own). * Surgical glue (let it peel off on its own). * Sutures or ferny (call the office for an appointment to have these removed). * Keep the incision dry for the first three days after surgery. Never apply ointments or lotions to the incision. * The incision should be checked daily. Notify the office if there is drainage, redness, or if you have fever with a temperature of over 100 degrees. * After the third postop day, it is okay to shower. Let soap and water run over your incision. No soaking in a tub, hot tub, or pool for at least one month. * You are encouraged to walk as much as comfortable, with assistance as needed. For example, it may be beneficial to walk short distances hourly during the waking hours and gradually increase walking during your recovery period. Fatigue can be common. * Avoid any bending, heavy lifting, twisting movements. * You have an bpltw-er-evt-pound lift restriction until further advised by your physician (A gallon of milk weighs eight pounds). * Make frequent position changes, avoiding long periods of sitting. Try not to sit more than 30 minutes at a time. * You may engage in sexual activity in two weeks as tolerated. * No housework, especially vacuuming, making beds, or doing laundry until seen in the office. * You may walk stairs carefully. * Minimize car rides for two weeks. Driving can usually be resumed within two weeks; however, you may not drive at that time if still taking pain medications. * Once you are discharged from the hospital, please call the office to set up your postop appointment. * The physician may order pain medication and/or muscle relaxers. As time goes by, you should require less of these. Always take your medication as ordered, and only if needed. If you take more than prescribed, it will not be refilled early. If you feel you require narcotic medication refill, kindly give the office a 72-hour notice. No refills are given over the weekend. * Anti-inflammatory meds (like Ibuprofen, Aleve, Advil, Motrin) may be used if approved by your surgeon. Over the counter Tylenol products may be used but use caution mixing Tylenol with your pain medication. The common pain pills include Acetaminophen as an ingredient, you could cause liver damage if taking too much. Tylenol and Acetaminophen are the same drug. * Resume your usual diet. Constipation is a common problem postop, especially when taking narcotic pain medications. You may use any over the counter laxative, or stool softener, following the bottle directions. * Use of nicotine products should be stopped completely. Smoking can slow the healing process significantly. It can also increase the chance for developing postop pneumonias and other complications. Please avoid use of all nicotine products for the health of your spine. * FOR AN EMERGENCY AFTER HOURS OR ON A WEEKEND, PLEASE CALL THE MEDICAL EXCHANGE AT * Call the office for: * Appointment set up. * Fever greater than 101 degrees. * Increased pain, swelling, redness or drainage from your incision. * Trouble swallowing or breathing. * Pain, swelling or weakness of your legs. * Any other question or concerns you may have. Patient Instructions: Antibiotic Form Patient Language: Lao Stand Alone Forms: General Discharge Information Follow-up/Referrals: Alo Diana MD [Physician] - Discharge Medications: New hydrocodone-acetaminophen 5-325 mg tablet 1 - 2 tablet PO Q4H PRN (Reason: pain) Qty: 30 0RF Continued Farxiga 10 mg tablet 5 mg PO .-- Rx Instructions: MWF cyanocobalamin (vitamin B-12) 1,000 mcg tablet 2,000 mcg PO DAILY pantoprazole 40 mg tablet,delayed release (DR/EC) 40 mg PO QAM Qty: 90 3RF latanoprost 0.005 % drops 1 drp OPHTHALMIC (EYE) HS ferrous sulfate 324 mg (65 mg iron) tablet,delayed release (DR/EC) 324 mg PO DAILY dorzolamide-timolol 22.3-6.8 mg/mL drops 1 drp EACH EYE BID Rx Instructions: EACH EYE nystatin 100,000 unit/gram powder 1 applic topical BID PRN (Reason: skin irritation) Rx Instructions: apply to skin folds in the groin and buttock twice daily until clear for yeast infection acetaminophen 500 mg capsule 1,000 mg PO Q6H PRN (Reason: pain) amitriptyline 10 mg tablet 20 mg PO . q.h.s. Qty: 180 3RF cholecalciferol (vitamin D3) 50 mcg (2,000 unit) tablet 2,000 unit PO DAILY metformin 1,000 mg tablet 1,000 mg PO BID Qty: 180 3RF atorvastatin 20 mg tablet 20 mg PO . Q.a.m. Qty: 90 3RF lisinopril 40 mg tablet 40 mg PO DAILY Qty: 90 3RF Patient Comments: QAM duloxetine 60 mg capsule,delayed release(DR/EC) 60 mg PO BID Qty: 180 3RF Date of admission: 08/28/24 18:50 Primary Care Provider: Andre Ontiveros Admitting Provider: Alo Diana Attending physician on admission: Alo Diana Condition: Stable
== END 2024-08-29 12:50 | disposition home or self-care (01) ==
LOC: ANHSURGERY 18:57 → ANH3MEDSUR 18:57
PROVIDERS: Admitting Provider Neurological Surgery; PCP Family Medicine; Visit Provider Neurological Surgery
PROC: (CPT 63655; principal; 2024-08-27 13:00)
DX: M48.04 Spinal stenosis, thoracic region (principal); M47.816 Spondylosis without myelopathy or radiculopathy, lumbar region; M54.42 Lumbago with sciatica, left side; M54.41 Lumbago with sciatica, right side; G89.29 Other chronic pain; E66.01 Morbid (severe) obesity due to excess calories; Z68.41 Body mass index [BMI] 40.0-44.9, adult; E11.22 Type 2 diabetes mellitus with diabetic chronic kidney disease; I12.9 Hypertensive chronic kidney disease with stage 1 through stage 4 chronic kidney disease, or unspecified chronic kidney disease; N18.4 Chronic kidney disease, stage 4 (severe); E11.40 Type 2 diabetes mellitus with diabetic neuropathy, unspecified; D50.9 Iron deficiency anemia, unspecified; E53.8 Deficiency of other specified B group vitamins; E55.9 Vitamin D deficiency, unspecified; E78.00 Pure hypercholesterolemia, unspecified; Z86.16 Personal history of COVID-19; Z79.84 Long term (current) use of oral hypoglycemic drugs; Z98.890 Other specified postprocedural states; Z79.899 Other long term (current) drug therapy
CPT/HCPCS: 63655; 63685; 36415; 81001; 82948; 85027; 85610; 85730; 93005; 97116; 97162; 97165; 97530; 97535; 99199; A9270; C1713; C1778; C1820; G0378; J0360; J0690; J1100; J1171; J1815; J2003; J2004; J2405; J2704; J3010; J3370; J7120

== ENCOUNTER 2024-11-26 08:02 | Outpatient (CLI) | payer MEDICARE, SELFPAY ==
--- OUTSIDE RECORDS SUMMARY | 2024-11-26 08:06 | XMS_ITS | Clinical Summary ---
Author Organization [facility] Address [address] [address] Phone Care Team Providers Care Kitchen Runner Name Role Phone Andre Ontiveros MD Primary Care Provider [phone] Allergies No known active allergies Medications amitriptyline (ELAVIL) 10 MG tablet amitriptyline 10 mg tablet TAKE ONE TABLET DAILY AT BEDTIME 2 Active atorvastatin (LIPITOR) 20 MG tablet 2 Active Dapagliflozin Propanediol (Farxiga) 10 MG tablet Farxiga 10 mg tablet 1 Active dorzolamide-naveed olol (COSOPT) 22.3-6.8 MG/ML ophthalmic solution Administer 1 drop into both eyes 2 (two) times a day 2 Active DULoxetine (CYMBALTA) [address] capsule duloxetine 60 mg capsule,delayed release 2 Active latanoprost (XALATAN) 0.005 % ophthalmic solution INSTILL 1 DROP INTO BOTH EYES EACH NIGHT AT BEDTIME 2 Active lisinopril (PRINIVIL) 40 MG tablet Take 40 mg by mouth 1 (one) time each day 2 Active metFORMIN (GLUCOPHAGE) 1000 MG tablet metformin 1,000 mg tablet 2 Active pantoprazole (PROTONIX) 40 MG EC tablet Take 40 mg by mouth 1 (one) time each day in the morning 2 Active Active Problems Problem Noted Date Diagnosed Date Peripheral vascular disease 03/31/2022 Insomnia 03/31/2022 Hypertension 03/31/2022 Hyperlipidemia 03/31/2022 Diabetic peripheral neuropathy 03/31/2022 Diabetes mellitus 03/31/2022 Chronic kidney disease 03/31/2022 Chronic depression 03/31/2022 Anemia 03/31/2022 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 02/16/2022 Immunizations Immunization Administration Dates Next Due Influenza, Quadrivalent 03/26/2021 [...] Recorded Sex Assigned at Not on file Legal Sex Male 10:15 AM MDT Gender Identity Not on file Sexual Orientation Not on file Last Filed Vital Signs Vital Sign Reading Time Taken Comments Blood Pressure 138/78 05/18/2022 11:26 AM FONDANT PUFF MAKER Pulse - - Temperature 36.5 C (97.7 F) 05/18/2022 11:26 AM FONDANT PUFF MAKER Respiratory Rate 18 05/18/2022 11:26 AM FONDANT PUFF MAKER Oxygen Saturation - - Inhaled Oxygen Concentration - - Weight 143 kg (316 lb) 05/18/2022 11:26 AM FONDANT PUFF MAKER Height 182.9 cm (6') 05/18/2022 11:26 AM FONDANT PUFF MAKER Body Mass Index 42.86 05/18/2022 11:26 AM FONDANT PUFF MAKER Plan of Treatment Health Maintenance Due Date Last Done Comments Pneumococcal PPSV23/PCV13 65 + Years / Low and Medium Risk (1 of 4 - PCV) 2003 Influenza Vaccine (Season Ended) 2025 Insurance [employer] MEDICARE ADVANTAGE Care Teams Kitchen Runner Relationship Specialty Start Date End Date Andre Ontiveros MD [address] [place] [id number] PCP - General Internal Medicine 01/10/22
--- OUTSIDE RECORDS SUMMARY | 2024-11-26 08:06 | XMS_ITS | Continuity of Care Document ---
Author Organization [facility] Address [address] [facility] [address] [place] [address] Phone Care Team Providers Care Plumbing And Heating Contractor Name Role Phone Kash Zazueta Unavailable Unavailable Advance Directives Directive Yes / No Effective Date File Name No Information Encounters Encounter Description Practice Location Reason(s) For Visit Diagnoses Date Provider Providers Copied on Encounter [facility], [address], [place], [place], [id number], [place] tel:[phone] [facility] ([facility]3] No Information October-0 1-200 2 Arielsy Edfelix. [address] , [address], [place], [address], [place]. tel:[phone] Family History Family Member Type Diagnosis Age [...]
--- OUTSIDE RECORDS SUMMARY | 2024-11-26 08:06 | XMS_ITS | Continuity of Care Document ---
Author Organization [facility] Address [address] [place] [address] Phone Care Team Providers Care Process Manager Name Role Phone Rick Londono MD Unavailable [...] X-ray exam shoulder, 1 view Office/outpatient visit,[facility] [place] 2021 Advance Directives Directive Yes / No Effective Date File Name No Information Encounters Encounter Description Practice Location Reason(s) For Visit Diagnoses Date Provider Providers Copied on Encounter [facility], [address] [address], [place], [place], [id number], [place] tel:[phone] [facility] No Information 3 Spring Cabrera. [address] [facility] [facility] [address], [place], [place], [id number] , [place]. tel:[phone] Office/outpa tient visit,est, low [facility], [address] [facility] [address], [place], [place], [id number], [place] tel:[phone] [facility] Left shoulder (chief complaint) Presence of left artificial shoulder joint 3 Spring Cabrera. [address] [facility], [facility] [address], [place], [place], [id number] , [place]. tel:[phone] Office/outpa tient visit,[facility] [place] [facility], [address] [address], [place], [place], [id number], [place] tel:[phone] [facility] Followup (chief complaint) Presence of left artificial shoulder jointPain in left hipContusion of left hip, initial encounter 2 Spring Cabrera. [address] [facility], [facility] [address], [place], [place], [id number] , [place]. tel:[phone] Referring Provider: Rick Segal, [address] [facility] [address] [facility], [place], [address] . tel:[phone] [facility], [address] [address], [place], [place], [id number], [place] tel:[phone] [facility] left shoulder (chief complaint) Presence of left artificial shoulder joint 2 Franck Proctor. [address] [facility], [place], [place], [id number] , [place]. tel:[phone] Referring Provider: Esthela Bone, [facility] [facility] [address] [facility], [place], [address] . tel:[phone] [facility], [address] [place] [address], [id number], tel:[phone] [facility] No Information 2 Spring Cabrera. [address] [place] [address], [address] [address], [place], [place], [id number] , [place]. [phone] Referring Provider: Rick Segal, [address] [place] [address], [place], [address] . tel:[phone] Office/outpa tient visit,[facility], [address] [place] [address], [place], [place], [id number], tel:[phone] [facility] Shoulder (chief complaint) Pain in left shoulderPrimary osteoarthritis, left shoulderIdiopathi c aseptic necrosis of left shoulder 2 Spring Cabrera. [address] [place] [address], [address] [place] [address], [place], [place], [id number] , [place]. tel:[phone] Referring Provider: Rick Segal, [address] [place] [address], [place], [address] . tel:[phone] Family History Family Member Type Diagnosis Age At Onset Father Problem (finding) Diabetes Mother Problem (finding) Diabetes Mother Problem (finding) Heart Disease Father Problem (finding) Cancer, unknown Father Problem (finding) Gout Immunizations Vaccine Date Status Comments influenza, injectable, quadr ivalent, (3 years or older) administered Source: Other Provid er Payers Payer name Insurance type Covered constitution party ID Authoriza tion(s) A[employer]na Medicare CI [id number] Social History Type Description Quantity Date Captured [...]
[2024-11-26 11:04] LABS: Anion Gap 11 mmol/L (4-12); Blood Urea Nitrogen 25 mg/dL (9-20); Calcium 9.4 mg/dL (8.4-10.2); Carbon Dioxide 23 mmol/L (22-30); Chloride 106 mmol/L (98-107); Estimated Glomerular Filt Rate 36; Glucose 170 mg/dL (65-110); Phosphorus 3.7 mg/dL (2.5-4.5); Potassium 4.7 mmol/L (3.4-5.0); Sodium 140 mmol/L (137-145)
[2024-11-26 11:16] LABS: Creatinine Urine 111.7 mg/dL
[2024-11-26 11:39] LABS: Total Protein Urine Random 253 mg/dL; Ur Ttl Prot Creatinine Ratio 2.26 mg/mg (0-0.20)
== END 2024-11-26 08:03 | disposition home or self-care (01) ==
LOC: ANHLAB 08:03
PROVIDERS: PCP Family Medicine; Visit Provider Internal Medicine Nephrology
DX: I12.9 Hypertensive chronic kidney disease with stage 1 through stage 4 chronic kidney disease, or unspecified chronic kidney disease (principal); E11.22 Type 2 diabetes mellitus with diabetic chronic kidney disease; N18.4 Chronic kidney disease, stage 4 (severe)
CPT/HCPCS: 36415; 80069; 82570; 84156

== ENCOUNTER 2025-02-19 09:23 | Outpatient (CLI) | payer MEDICARE, SELFPAY ==
--- OUTSIDE RECORDS SUMMARY | 2001-10-24 10:45 | XMS_ITS | Continuity of Care Document ---
Author Organization [facility] Address [address] [facility] [address] [place] [address] Phone Care Team Providers Care Final Assembler Name Role Phone Kash Zazueta Unavailable Unavailable Advance Directives Directive Yes / No Effective Date File Name No Information Encounters Encounter Description Practice Location Reason(s) For Visit Diagnoses Date Provider Providers Copied on Encounter [facility], [address], [place], [place], [id number], [place] tel:[phone] [facility] No Information October-0 1-200 2 Arielsy Edfelix. [address] , [address], [place], [address], [place]. tel:[phone] Family History Family Member Type Diagnosis Age At Onset No Information Payers Payer name Insurance type Covered republican ID Authoriza tion(s) No Information Social History [...]
--- OUTSIDE RECORDS SUMMARY | 2023-04-26 09:29 | XMS_ITS | Continuity of Care Document ---
Author Organization [facility] Address [address] [place] [address] Phone Care Team Providers Care Clinical Quality Analyst Name Role Phone Rick Londono MD Unavailable [...] Replcmt X-ray exam shoulder, 1 view Office/outpatient visit,[facility] 2021 Advance Directives Directive Yes / No Effective Date File Name No Information Encounters Encounter Description Practice Location Reason(s) For Visit Diagnoses Date Provider Providers Copied on Encounter [facility], [address] [address], [place], [place], [id number], [place] tel:[phone] [facility] No Information 3 Spring Cabrera. [address] [facility] [facility] [address], [place], [place], [address] , [place]. tel:[phone] Office/outpa tient visit,est, low [facility], [address] [facility] [address], [place], [place], [id number], [place] tel:[phone] [facility] Left shoulder (chief complaint) Presence of left artificial shoulder joint 3 Spring Cabrera. [address] [facility], [facility] [address], [place], [place], [id number] , [place]. tel:[phone] Office/outpa tient visit,[facility], [address] [address], [place], [place], [id number], [place] tel:[phone] [facility] Followup (chief complaint) Presence of left artificial shoulder jointPain in left hipContusion of left hip, initial encounter 2 Spring Cabrera. [address] [facility], [facility] [address], [place], [place], [id number] , [place]. tel:[phone] Referring Provider: Rick Segal, [address] [facility] [place] [place], [place], [address] . tel:[phone] [facility], [address] [address], [place], [place], [id number], [place] tel:[phone] [facility] left shoulder (chief complaint) Presence of left artificial shoulder joint 2 Franck Proctor. [address], [place], [place], [address] , [place]. tel:[phone] Referring Provider: Esthela Bone, [facility] [facility] [place] [facility] [place], [place], [address] . tel:[phone] [facility], [address] [place] [address], [id number], tel:[phone] [facility] No Information 2 Spring Cabrera. [address] [place] [address], [address] [address], [place], [place], [id number] , [place]. [phone] Referring Provider: Rick Segal, [address] [place] [address], [place], [address] . tel:[phone] Office/outpa tient visit,[facility], [address] [place] [address], [place], [place], [id number], tel:[phone] [facility] Shoulder (chief complaint) Pain in left shoulderPrimary osteoarthritis, left shoulderIdiopathi c aseptic necrosis of left shoulder 2 Spring Cabrera. [address] [place] [address], [address] [address], [place], [place], [id number] , [place]. tel:[phone] Referring Provider: Rick Segal, [address] [place] [address], [place], [address] . tel:[phone] Family History Family Member Type Diagnosis Age At Onset Father Problem (finding) Diabetes Mother Problem (finding) Diabetes Mother Problem (finding) Heart Disease Father Problem (finding) Cancer, unknown Father Problem (finding) Gout Immunizations Vaccine Date Status Comments influenza, injectable, quadr ivalent, (3 years or older) administered Source: Other Provid er Payers Payer name Insurance type Covered green party ID Authoriza tion(s) Aetna Medicare CI [id number] Social History Type Description Quantity Date Captured [...]
--- OUTSIDE RECORDS SUMMARY | 2025-02-19 09:35 | XMS_ITS | Clinical Summary ---
Author Organization [facility] Address [address] [address] Phone Care Team Providers Care Media Relations Associate Name Role Phone Andre Ontiveros MD Primary Care Provider [phone] Allergies No known active allergies Medications amitriptyline [...] Comments Blood Pressure 138/78 05/18/2022 11:26 AM RESISTANCE WELDER Pulse - - Temperature 36.5 C (97.7 F) 05/18/2022 11:26 AM RESISTANCE WELDER Respiratory Rate 18 05/18/2022 11:26 AM RESISTANCE WELDER Oxygen Saturation - - Inhaled Oxygen Concentration - - Weight 143 kg (316 lb) 05/18/2022 11:26 AM RESISTANCE WELDER Height 182.9 cm (6') 05/18/2022 11:26 AM RESISTANCE WELDER Body Mass Index 42.86 05/18/2022 11:26 AM RESISTANCE WELDER Plan of Treatment Health Maintenance Due Date Last Done Comments Pneumococcal PPSV23/PCV13 65 + Years / Low and Medium Risk (1 of 2 - PCV) 2003 Influenza Vaccine (#1) 2025 Insurance [employer] MEDICARE ADVANTAGE Care Teams Media Relations Associate Relationship Specialty Start Date End Date Andre Ontiveros MD [address] [place] [id number] PCP - General Internal Medicine 01/10/22
[2025-02-19 09:53] LABS: Hematocrit 38.4 % (42.0-52.0); Hemoglobin 12.4 g/dL (14.0-18.0); Immature Granulocyte Percent A 0.4 % (0-0.5); Lymphocytes Absolute Auto 3.38 K/mm3 (0.9-3.2); Mean Corpuscular HGB Conc 32.3 g/dl (32-36); Mean Corpuscular Hemoglobin 27.4 pg (26-34); Mean Corpuscular Volume 85.0 fl (80-100); Nucleated Red Blood Cells Absolute Auto 0.000 K/mm3 (0.0-0.012); Nucleated Red Blood Cells Perc 0.0 % (0.0-0.2); Platelet Count Result 312 k/mm3 (150-375); Red Blood Count 4.52 M/mm3 (4.6-6.20); White Blood Count 11.3 K/mm3 (4.5-10.0)
[2025-02-19 09:54] LABS: Add Urine Microscopic? YES; Appearance Urine Clear (Clear); Glucose Urine UA 3+ mg/dL (Negative); Leukocyte Esterase Ur Negative LEU/UL (Negative); Nitrate Urine Negative (Negative); Non Pathogenic Casts 0-2; Specific Grav Ur 1.018 (1.001-1.035)
[2025-02-19 10:14] LABS: Alanine Aminotransferase 19 U/L (6-50); Albumin Level 4.0 g/dL (3.5-5.1); Alkaline Phosphatase 82 U/L (38-126); Anion Gap 12 mmol/L (4-12); Aspartate Amino Transferase 31 U/L (17-59); Bilirubin,Total 0.4 mg/dL (0.2-1.3); Blood Urea Nitrogen 33 mg/dL (9-20); Calcium 9.2 mg/dL (8.4-10.2); Carbon Dioxide 19 mmol/L (22-30); Chloride 108 mmol/L (98-107); Cholesterol 199 mg/dL (0-200); Estimated Glomerular Filt Rate 32; Glucose 143 mg/dL (65-110); HDL Direct 37 mg/dL; Iron 95 ug/dL (49-181); Potassium 4.6 mmol/L (3.4-5.0); Sodium 139 mmol/L (137-145); Total Protein 7.5 g/dL (6.3-8.2); Triglycerides 370 mg/dL (<150)
[2025-02-19 10:31] LABS: Percent Iron Saturation 34 % (20-50)
[2025-02-19 10:33] LABS: Hemoglobin A1C 7.3 % (<5.7)
[2025-02-19 10:51] LABS: Prostate Specific Antigen 0.4 ng/mL (< OR = 4.0); Thyroid Stimulating Hormone 4.990 uIU/mL (0.465-4.680)
[2025-02-19 10:57] LABS: Ferritin 51.50 ng/mL (11.1-264)
[2025-02-19 11:02] LABS: MALB Creatinine Ratio 735.4 mg/g (0-30)
[2025-02-19 11:27] LABS: Vitamin B12 > 1000.0 pg/mL (239-931)
== END 2025-02-19 09:24 | disposition home or self-care (01) ==
PROVIDERS: PCP Family Medicine; Visit Provider Family Medicine
DX: E78.2 Mixed hyperlipidemia (principal); E11.9 Type 2 diabetes mellitus without complications; Z12.5 Encounter for screening for malignant neoplasm of prostate; D50.9 Iron deficiency anemia, unspecified
CPT/HCPCS: 36415; 80048; 80061; 80076; 81001; 82043; 82607; 82728; 82746; 83036; 83540; 83550; 84153; 84443; 85025; G0103

== ENCOUNTER 2025-04-01 10:18 | Outpatient (CLI) | payer MEDICARE, SELFPAY ==
--- OUTSIDE RECORDS SUMMARY | 2001-10-24 10:45 | XMS_ITS | Continuity of Care Document ---
Author Organization [facility] Address [address] [facility] [address] [place] [address] Phone Care Team Providers Care Paper Cone Machine Tender Name Role Phone Kash Zazueta Unavailable Unavailable Advance Directives Directive Yes / No Effective Date File Name No Information Encounters Encounter Description Practice Location Reason(s) For Visit Diagnoses Date Provider Providers Copied on Encounter [facility], [address], [place], [place], [id number], [place] tel:[phone] [facility] No Information October-0 1-200 2 Arielsy Edfelix. [address] , [address], [place], [address], [place]. tel:[phone] Family History Family Member Type Diagnosis Age At Onset No Information Payers Payer name Insurance type Covered green party ID Authoriza tion(s) No Information Social History Type Description Quantity Date Captured Comments Sex Male Smoking Status No Information Chief Complaint And Reason For Visit No Information Reason For Referral Reason For Referral No Information History Of Present Illness Encounter Date Complaint History Of Prese nt Illness No Information Functional Status Date Functional Assessmen t No Information Instructions Date Instruction Additional Infor mation No Information Assessments Type Assessment Date No Information Patient Care Teams Name Effective Dates (start - stop) Status Members No Information
--- OUTSIDE RECORDS SUMMARY | 2023-04-26 09:29 | XMS_ITS | Continuity of Care Document ---
Author Organization [facility] Address [address] [place] [address] Phone Care Team Providers Care Armature And Rotor Winder Name Role Phone Rick Londono MD Unavailable Unavailable Allergies, Adverse Reactions, Alerts Substance Reaction Status Criticality No Known Allergies Active No Inform ation Medications Medication Instructions Dosage Effective Dates (start - stop) Status Comments amitriptyline 10 mg tablet - Active duloxetine 60 mg capsule,delayed release - Active cephalexin 500 mg capsule - Active dorzolamide 22.3 mg-timolol 6.8 mg/mL eye drops - Active latanoprost 0.005 % eye drops - Active atorvastatin 20 mg tablet - Active gabapentin 600 mg tablet - A ctive atorvastatin 40 mg tablet - Active hydrochlorothiazide 12.5 mg tablet - Active metformin 1,000 mg tablet - Active amoxicillin 875 mg tablet - Active Farxiga 10 mg tablet - Activ e Procedures Procedure Date Office/outpatient visit,est, low 2022 Global/Postop followup visit Office/outpatient visit,est, mod 2021 X-ray Exam Hip Unilat With Pelvis When P erf 2-3 View X-ray exam shoulder complete, minimum 2 views Global/Postop followup visit Total Shoulder Replcmt X-ray exam shoulder, 1 view Office/outpatient visit,[facility] [place] 2021 Advance Directives Directive Yes / No Effective Date File Name No Information Encounters Encounter Description Practice Location Reason(s) For Visit Diagnoses Date Provider Providers Copied on Encounter [facility], [address] [address], [place], [place], [id number], [place] tel:[phone] [facility] No Information 3 Spring Cabrera. [address], [place], [place], [id number] , [place]. tel:[phone] Office/outpa tient visit,est, low [facility], [address], [place], [place], [id number], [place] tel:[phone] [facility] Left shoulder (chief complaint) Presence of left artificial shoulder joint 3 Spring Cabrera. [address] [facility] [facility] [address], [place], [place], [id number] , [place]. tel:[phone] Office/outpa tient visit,[facility] [place] [facility], [address] [address], [place], [place], [id number], [place] tel:[phone] [facility] Followup (chief complaint) Presence of left artificial shoulder jointPain in left hipContusion of left hip, initial encounter 2 Spring Cabrera. [address] [facility] [address], [place], [place], [id number] , [place]. tel:[phone] Referring Provider: Rcik Segal, [address] [facility], [place], [address] . tel:[phone] [facility], [address] [address], [place], [place], [id number], [place] tel:[phone] [facility] left shoulder (chief complaint) Presence of left artificial shoulder joint 2 Franck Proctor. [address], [place], [place], [id number] , [place]. tel:[phone] Referring Provider: Esthela Bone, [facility] [facility], [place], [address] . tel:[phone] [facility], [address] [place] [address], [id number], tel:[phone] [facility] No Information 2 Spring Cabrera. [address] [place] [address], [address] [address], [place], [place], [id number] , [place]. [phone] Referring Provider: Rick Segal, [address] [place] [address], [place], [address] . tel:[phone] Office/outpa tient visit,[facility], [address] [place] [address], [place], [place], [id number], tel:[phone] [facility] Shoulder (chief complaint) Pain in left shoulderPrimary osteoarthritis, left shoulderIdiopathi c aseptic necrosis of left shoulder 2 Spring Cabrera. [address] [place] [address], [address] [address], [place], [place], [id number] , [place]. tel: [phone] Referring Provider: Rick Segal, [address] [place] [address], [place], [address] . tel:[phone] Family History Family Member Type Diagnosis Age At Onset Father Problem (finding) Diabetes Mother Problem (finding) Diabetes Mother Problem (finding) Heart Disease Father Problem (finding) Cancer, unknown Father Problem (finding) Gout Immunizations Vaccine Date Status Comments influenza, injectable, quadr ivalent, (3 years or older) administered Source: Other Provid er Payers Payer name Insurance type Covered green party ID Authoriza tion(s) [employer] Medicare CI [id number] Social History Type Description Quantity Date Captured Comments Alcohol Use Details Unknown Caffeine Use Details Unknown Tobacco Use Status No Information Smoking Status No Information Sex Male Chief Complaint And Reason For Visit No Information Reason For Referral Reason For Referral No Information Plan Of Treatment Date Type Action Status Referral Ordered: X-ray Exam Hip Unilat With Pelvis When Perf 2-3 View LT ordered Referral Ordered: X-ray exam shoulder complete, minimum 2 views LT ordered Referral Ordered: X-ray exam shoulder, 1 view LT ordered History Of Present Illness Encounter Date Complaint History Of Prese nt Illness Left shoulder Patient comes in today for follow up of his left reverse total shoulder arthroplasty Followup Patient comes in today for follow up of his left total shoulder as well as left hip pain left shoulder Abhinav comes in t he office today for his left shoulder. He is status post left reverse TSA. DOS 05/10/2022. He states he has fallen twice since his surgery. Once in a parking lot and the second time at home and landed on the left side both times. He complains of a rash on the left upper arm and forearm since surgery. He has tried different lotions, but nothing seems to help. X-rays of the shoulder were obtained in the office today. He is wearing a sling. Shoulder Comes in today f or left shoulder pain Functional Status Date Functional Assessmen t No Information Instructions Date Instruction Additional Infor mation No Information Assessments Type Assessment Date No Information Patient Care Teams Name Effective Dates (start - stop) Status Members No Information
--- OUTSIDE RECORDS SUMMARY | 2025-04-01 11:09 | XMS_ITS | Clinical Summary ---
Author Organization [facility] Address [address], [place] [address] Phone Care Team Providers Care Faculty Neuropsychologist Name Role Phone Andre Ontiveros MD Primary Care Provider [phone] Allergies No known active allergies Medications amitriptyline [...] Comments Blood Pressure 138/78 05/18/2022 11:26 AM DIE SIZER Pulse - - Temperature 36.5 C (97.7 F) 05/18/2022 11:26 AM DIE SIZER Respiratory Rate 18 05/18/2022 11:26 AM DIE SIZER Oxygen Saturation - - Inhaled Oxygen Concentration - - Weight 143 kg (316 lb) 05/18/2022 11:26 AM DIE SIZER Height 182.9 cm (6') 05/18/2022 11:26 AM DIE SIZER Body Mass Index 42.86 05/18/2022 11:26 AM DIE SIZER Plan of Treatment Health Maintenance Due Date Last Done Comments Pneumococcal PPSV23/PCV13 65 + Years / Low and Medium Risk (1 of 2 - PCV) 2003 Influenza Vaccine (#1) 2025 Insurance [employer] MEDICARE ADVANTAGE Care Teams Faculty Neuropsychologist Relationship Specialty Start Date End Date Andre Ontiveros MD [address] [place] [phone] PCP - General Internal Medicine 01/10/22
[2025-04-01 11:20] LABS: Total Protein Urine Random 114 mg/dL; Ur Ttl Prot Creatinine Ratio 0.97 mg/mg (0-0.20)
[2025-04-01 11:24] LABS: Albumin Level 3.6 g/dL (3.5-5.1); Anion Gap 8 mmol/L (4-12); Blood Urea Nitrogen 29 mg/dL (9-20); Calcium 8.8 mg/dL (8.4-10.2); Carbon Dioxide 22 mmol/L (22-30); Chloride 104 mmol/L (98-107); Estimated Glomerular Filt Rate 38; Glucose 147 mg/dL (65-110); Potassium 4.4 mmol/L (3.4-5.0); Sodium 134 mmol/L (137-145)
[2025-04-01 11:37] LABS: Parathyroid Intact 48.7 pg/mL (14.5-75.2)
== END 2025-04-01 10:19 | disposition home or self-care (01) ==
LOC: ANHLAB 10:19
PROVIDERS: PCP Family Medicine; Visit Provider Internal Medicine Nephrology
DX: I12.9 Hypertensive chronic kidney disease with stage 1 through stage 4 chronic kidney disease, or unspecified chronic kidney disease (principal); N18.32 Chronic kidney disease, stage 3b; E11.22 Type 2 diabetes mellitus with diabetic chronic kidney disease; N25.81 Secondary hyperparathyroidism of renal origin; E55.9 Vitamin D deficiency, unspecified
CPT/HCPCS: 36415; 80069; 82306; 82570; 83970; 84156